=== PATIENT | male | born 1940 | race Caucasian/White ===

== ENCOUNTER 2023-04-28 00:04 | Inpatient (IN) | payer MEDICAID, SELFPAY ==
[2023-04-28] VITALS (59 sets, daily range): BP systolic 56–136; BP diastolic 22–100; PULSE 74–119; RESP 15–38; TEMP 33.9–37.6; O2SAT 70–100; BMI 27.3; BMI 27.5
--- NOTE | ~2023-04-28 | XR_ITS ---
EXAMINATION: XR CHEST CLINICAL INFORMATION: Hypoxia. COMPARISON: Most recent chest radiograph dated 05/03/2023. TECHNIQUE: Frontal view of the chest was obtained. FINDINGS: Hypoinflation of the lungs with small bilateral pleural effusions and bibasilar airspace opacities, increased on the left when compared to the prior examination. No pneumothorax. Stable cardiomediastinal silhouette. XR/XR chest 1V IMPRESSION: Hypoinflation of the lungs with small bilateral pleural effusions and bibasilar airspace opacities, increased on the left when compared to the prior examination.
--- NOTE | ~2023-04-28 | XR_ITS ---
EXAMINATION: XR CHEST CLINICAL INFORMATION: Hypoxia COMPARISON: 04/28/2023 TECHNIQUE: Frontal view of the chest was obtained. FINDINGS: The lungs are hypoinflated which limits evaluation. Bibasilar opacities are present, mildly increased on the left compared to prior. No appreciable pneumothorax or significant pleural effusion. Mildly prominent central vasculature may be accentuated by low lung volumes. Cardiac size grossly appears within normal limits. No acute osseous findings are seen. Contrast material noted within the right colon. XR/XR chest 1V IMPRESSION: Low lung volumes. Bibasilar opacities, mildly increased on the left compared to prior, which may reflect consolidation superimposed on atelectasis in the setting of low lung volumes.
--- NOTE | ~2023-04-28 | XR_ITS ---
EXAMINATION: XR CHEST CLINICAL INFORMATION: Hypoxia COMPARISON: Multiple priors with the last chest x-ray of 05/01/2023 TECHNIQUE: Frontal view of the chest was obtained. FINDINGS: The lungs are significantly hypoexpanded limiting evaluation. Bronchovascular crowding is redemonstrated. No definite new airspace opacities are noted compared to last x-ray. No evidence of from changes of overt pulmonary edema or significant pleural effusions. Small portions of the bilateral lung apices are obscured by overlying feces. Considering this limitation no definite pneumothorax is noted. Multiple cardiac leads and wires overlie the chest. Assessment of the cardiomediastinal silhouette is limited. XR/XR chest 1V IMPRESSION: Limited evaluation by technique and patient positioning. Significantly hypoexpanded lungs with bronchovascular crowding. No definite new airspace opacities are noted compared to last x-ray.
--- NOTE | ~2023-04-28 | XR_ITS ---
EXAMINATION: XR CHEST CLINICAL INFORMATION: Hypoxia. COMPARISON: 05/02/2023 TECHNIQUE: Frontal view of the chest was obtained. FINDINGS: The evaluation of the lungs is extremely limited due to several factors, including marked hypoinflation as well as patient's face overlying the medial lung apices. There is crowding of bronchovascular structures. The persistent streaky, ill-defined opacities in lower lobes are not appreciably changed. No evidence of acute infiltrates in the mid or upper lung zones. This limited exam would not be able to exclude any small pleural effusions. Cardiac silhouette is not well evaluated but is grossly normal in size. The visualized bones are intact. XR/XR chest 1V IMPRESSION: Lungs are hypoinflated and there are persistent opacities from pneumonia and/or atelectasis of lower lobes.
--- NOTE | ~2023-04-28 | XR_ITS ---
EXAMINATION: XR CHEST CLINICAL INFORMATION: Atelectasis COMPARISON: 05/01/2023 at 0500 hours. TECHNIQUE: Frontal view of the chest was obtained. FINDINGS: Low lung volumes limit evaluation. Heart and mediastinum appear within normal limits. No gross vascular congestion. Left base opacity appears less prominent. No change right base opacity. XR/XR chest 1V IMPRESSION: Limited study secondary to low lung volumes. Bibasilar opacities likely atelectasis/consolidations with some improvement of the left base.
--- NOTE | 2023-04-28 00:11 | ED.GENADULT ---
HPI - General Adult General Chief complaint: Altered Mental Status Stated complaint: vomitting Time Seen by Provider: 04/28/23 00:10 Source: EMS Mode of arrival: EMS History of Present Illness HPI narrative: 82-year-old male brought in by EMS from [facility] where the staff states that he was found sitting up in a chair vomiting approximately 30 minutes prior to arrival. As per EMS staff at the facility had stated that patient was not feeling well during the day. EMS found the patient unresponsive, point of care glucose-139, they were unable to get his oxygen saturation throughout the evaluation as well as during transportation but had patient on 100% non-rebreather and at that time the patient arrived to this emergency room he was noted to be tachypneic and unresponsive. Related Data Allergies Allergy/AdvReac Type Severity Reaction Status Date / Time Unable to Assess Allergy Verified 04/28/23 00:10 Review of Systems Review of Systems: Yes Unobtainable due to mental condition PMFSH Past Medical History Source: nursing notes reviewed Social History Social History Advance Directives: No Advance Directives Information Provided: No Physical Exam ED Vital Signs: Vital Signs - 24 hr 04/28/23 00:23 04/28/23 01:35 04/28/23 01:45 Pulse Rate 112 H 102 H Respiratory Rate 38 H Blood Pressure 121/100 H 56/29 L Pulse Oximetry 70 L Oxygen Delivery Method Non-Rebreather Mask Fraction of Inspired Oxygen 50 04/28/23 01:50 04/28/23 01:55 04/28/23 02:01 Pulse Rate 101 H 103 H 98 Respiratory Rate Blood Pressure 75/43 L 73/45 L 75/41 L Pulse Oximetry Oxygen Delivery Method Fraction of Inspired Oxygen 04/28/23 02:05 04/28/23 02:10 Pulse Rate 93 89 Respiratory Rate Blood Pressure 68/42 L 75/42 L Pulse Oximetry Oxygen Delivery Method Fraction of Inspired Oxygen BMI result Body Mass Index 27.3 VITAL SIGNS: Reviewed. GENERAL: Chronically ill, appears older than stated age, unresponsive HEAD: Normocephalic/atraumatic, EYES: Asymmetric pupils EARS: Ext canals without abnormality NOSE: Nares patent bilateral OROPHARYNX: no oral lesions noted, posterior pharynx clear NECK: Supple, no adenopathy LUNGS: Tachypneic with decreased breath sounds on the right. SpO2<82> on Ambu bag CARDIOVASCULAR: Regular rate and rhythm without noted murmurs, no JVD or lower extremity edema. ABDOMEN: Soft, non-tender, non-distended with bowel sounds. MUSCULOSKELETAL: No tenderness, deformities, or effusions noted on gross inspection. EXTREMITIES: No cyanosis, clubbing or edema. SKIN: Inspection of the skin reveals no rashes NEUROLOGIC: GCS-3 Medications Administered Generic Name Dose Route Start Last Admin Trade Name Esther PRN Reason Stop Dose Admin Norepinephrine Bitartrate 8 mg in 250 mls @ 0 mls/hr 04/28/23 01:45 04/28/23 02:30 Levophed IV 0.23 mcg/kg/min .Q0M JEEVAN 39.42 mls/hr Titration Protocol Per Protocol Sodium Chloride 2,742 mls @ 2,742 mls/hr 04/28/23 01:46 04/28/23 02:08 Ns 30 ml/kg infuse over 1 hr (2742 ml) 04/28/23 02:45 2,742 mls/hr IV Administration .Q1H STA Potassium Chloride 10 meq in 100 mls @ 100 mls/hr 04/28/23 02:00 04/28/23 02:31 Potassium Chloride/H20 IV 04/28/23 05:59 100 mls/hr Q1H JEEVAN Administration Discontinued Medications Generic Name Dose Route Start Last Admin Trade Name Esther PRN Reason Stop Dose Admin Etomidate 10 mg 04/28/23 00:35 04/28/23 00:40 Etomidate 20 Mg/10 Ml Vial IVPUSH 04/28/23 00:36 10 mg ONCE ONE Administration Sodium Chloride 500 mls @ 999 mls/hr 04/28/23 01:00 04/28/23 02:09 Ns IV 04/28/23 01:30 Infused .Q31M JEEVAN Infusion Piperacillin Sod/Tazobactam 100 mls @ 200 mls/hr 04/28/23 01:00 04/28/23 02:09 Sod 4.5 gm/ Sodium Chloride IV 04/28/23 01:29 Infused ONCE ONE Infusion Rocuronium [place] 50 mg 04/28/23 00:35 04/28/23 00:42 Rocuronium [place] 50 Mg/5 Ml Vial IVPUSH 07/09/23 00:36 50 mg ONCE ONE Administration Sodium Bicarbonate 50 meq 04/28/23 02:15 04/28/23 02:18 Sodium Bicarbonate 8.4% 50 Meq/50 Ml Syringe IVPUSH 04/28/23 02:16 50 meq ONCE ONE Administration Sodium Bicarbonate 50 meq 04/28/23 02:15 04/28/23 02:19 Sodium Bicarbonate 8.4% 50 Meq/50 Ml Syringe IVPUSH 04/28/23 02:16 50 meq ONCE ONE Administration Procedures Central Line Placement Right Femoral: Time Out Performed: No Patient Placed on Monitor/Pulse Ox: Yes MD Prep: mask, gown and gloves Central Line Prep: Chlorhexidine scrub Ultrasound Used for Placement: Yes Central Line Lumen Inserted: triple Post Procedure: sutured in place, good blood return, all ports aspirated, flushed, capped and sterile dressing applied Patient Tolerated Procedure: well Complications: none Intubation Time out performed: No sedative: Etomidate Mg Given: 10 paralytic: Rocuronium Mg Given: 50 Laryngoscope: fiber optic video scope Assist Device Used: fiber optic device ET Tube Size: 8 ET Tube Uncuffed: Yes Tube Secured Depth (cm): 25 Tube Secured Location: lips Tube Placement Confirmation: visualized tube passing through cords, equal breath sounds bilaterally, no breath sounds over epigastrium and confirmation by capnometry Patient Tolerated Procedure: well Intubation Complications: none Medical Decision Making Medical Decision Making MDM Narrative: 82-year-old male with limited information as patient has not been seen here previously but on quick review paperwork provided by the facility he is noted to be a full resuscitation, has a history of diabetes, he is not responsive, not protecting his airway and despite full flow Ambu bag ventilatory efforts he is still not maintaining adequate oxygenation. I highly suspect aspiration pneumonia, labs/lactic acid/blood cultures are pending. Cannot rule out possible intracranial bleed for which she will receive a CT of the head. 0020: I discussed patient's case with his son, Taz Knott, who confirms the patient is a full resuscitation and also reports that his father had what sounds like a hemorrhagic bleed approximately 20 years ago and has been bed-bound and has a history of diabetes and hypertension but as far as he knows no history of heart attack or pacemaker. He is unsure whether not his father is on blood thinners. 0040: Patient intubated for airway protection, GCS of 3, persistent hypoxia despite maximal noninvasive respiratory support. 0130: I discussed the case with conservator artifacts who accepts admission and on initial evaluation of CT scan of abdomen pelvis it did appear as though patient might have an SBO. Patient has bandemia and was treated with antibiotics, he is noted to be hypotensive and was started on Levophed due to the extensive hypotension and lack of response on initial IV hydration, sepsis fluids were ordered. Patient is noted to have significant metabolic acidosis and be hypotensive and suspect that he may have been sick for much longer than just today. Right femoral central line was placed. 0214: According to radiology there are no acute findings within the abdomen. In addition, chest CT appears to be indicative of aspiration event. Potassium is noted to be low and patient will receive runs of potassium chloride, patient is noted to be in metabolic acidosis which might be a component of acute respiratory failure. I discussed this with the conservator artifacts and we will administer 100 bicarb IV push. Admission/Observation Consideration of admission/observation: Escalation of care including admission/observation considered Consult Healthcare Provider Management of the patient was discussed with: [employer] Lab Data 04/28/23 00:20 04/28/23 00:20 Labs: Lab Results 04/28/23 04/28/23 04/28/23 Range/Units 00:17 00:20 00:20 WBC 7.4 (4.8-10.8) X10*3/uL RBC 4.80 (4.60-5.80) X10*6/uL Hgb 14.4 (14.0-18.0) g/dl Hct 45.8 (42.0-52.0) % MCV 95.4 (80.0-98.0) fL MCH 30.0 (27.0-33.0) pg MCHC 31.4 (31.0-36.0) g/dl RDW 15.3 (11.0-16.0) % Plt Count 436 H (160-400) X10*3/uL MPV 9.5 (9.4-12.4) fL Immature Gran % (Auto) Cancelled Neut % (Auto) Cancelled Lymph % (Auto) Cancelled [place] % (Auto) Cancelled Eos % (Auto) Cancelled Baso % (Auto) Cancelled Lymph # (Auto) Cancelled [place] # (Auto) Cancelled Eos # (Auto) Cancelled Baso # (Auto) Cancelled Abs Immat Gran (auto) Cancelled Absolute Neuts (auto) Cancelled Absolute Nucleated RBC 0.040 H (0.0-0.012) X10*3/uL Nucleated RBC % (auto) 0.5 H (0.0-0.2) /100WBC Neutrophils % (Manual) 39 L (45-73) % Band Neutrophils % 38 H (3-5) % Lymphocytes % (Manual) 19 L (20-40) % Monocytes % (Manual) 1 L (2-11) % Metamyelocytes % 3 % Abs Neuts (Manual) 5.7 (2.0-8.3) X10*3/uL Lymphocytes # (Manual) 1.4 (1.2-4.9) X10*3/uL Monocytes # (Manual) 0.1 (0.1-1.2) X10*3/uL Metamyelocytes # 0.2 X10*3/uL Toxic Vacuolation PRESENT Platelet Estimate NORMAL (NORMAL) Large Platelets PRESENT Plt Morphology Comment NOTED RBC Morphology NOTED Junction Cells 1+ (0-2) /OIF Schistocytes 1+ (0-2) /OIF PT 11.7 (10.0-13.1) SEC INR 1.0 (0.9-1.1) O2 Saturation % ABG pH at Pt Temp (7.35-7.45) ABG pCO2 at Pt Temp (32-45) mmHg ABG pO2 at Pt Temp (83-108) mmHg ABG HCO3 (22-26) mmol/L ABG Base Excess (Actual) mmol/L Sodium (135-145) mmol/L Potassium (3.3-5.1) mmol/L Chloride (96-108) mmol/L Carbon Dioxide (22-29) mmol/L Anion Gap (12-20) BUN (9-16) mg/dL Creatinine (0.5-1.4) mg/dL Estim Creat Clear Calc Estimated GFR POC Glucose 119 H (60-115) mg/dL Random Glucose (60-115) mg/dL Lactic Acid (0.5-2.0) mmol/L Calcium (8.4-10.2) mg/dL Total Bilirubin (0.0-1.0) mg/dL AST (5-37) U/L ALT (0-40) U/L Alkaline Phosphatase (39-117) U/L Troponin I High Sens (<3.5-35.0) ng/L Total Protein (6.5-8.0) g/dL Albumin (3.5-5.0) g/dL 04/28/23 04/28/23 04/28/23 Range/Units 00:20 00:22 01:18 WBC (4.8-10.8) X10*3/uL RBC (4.60-5.80) X10*6/uL Hgb (14.0-18.0) g/dl Hct (42.0-52.0) % MCV (80.0-98.0) fL MCH (27.0-33.0) pg MCHC (31.0-36.0) g/dl RDW (11.0-16.0) % Plt Count (160-400) X10*3/uL MPV (9.4-12.4) fL Immature Gran % (Auto) Neut % (Auto) Lymph % (Auto) [place] % (Auto) Eos % (Auto) Baso % (Auto) Lymph # (Auto) [place] # (Auto) Eos # (Auto) Baso # (Auto) Abs Immat Gran (auto) Absolute Neuts (auto) Absolute Nucleated RBC (0.0-0.012) X10*3/uL Nucleated RBC % (auto) (0.0-0.2) /100WBC Neutrophils % (Manual) (45-73) % Band Neutrophils % (3-5) % Lymphocytes % (Manual) (20-40) % Monocytes % (Manual) (2-11) % Metamyelocytes % % Abs Neuts (Manual) (2.0-8.3) X10*3/uL Lymphocytes # (Manual) (1.2-4.9) X10*3/uL Monocytes # (Manual) (0.1-1.2) X10*3/uL Metamyelocytes # X10*3/uL Toxic Vacuolation Platelet Estimate (NORMAL) Large Platelets Plt Morphology Comment RBC Morphology Rom Cells /OIF Schistocytes /OIF PT (10.0-13.1) SEC INR (0.9-1.1) O2 Saturation 82.0 90.0 % ABG pH at Pt Temp 7.26 L 7.22 L (7.35-7.45) ABG pCO2 at Pt Temp 34 34 (32-45) mmHg ABG pO2 at Pt Temp 64 L 76 L (83-108) mmHg ABG HCO3 16 L 14 L (22-26) mmol/L ABG Base Excess (Actual) -9.9 -12.2 mmol/L Sodium (135-145) mmol/L Potassium (3.3-5.1) mmol/L Chloride (96-108) mmol/L Carbon Dioxide (22-29) mmol/L Anion Gap (12-20) BUN (9-16) mg/dL Creatinine (0.5-1.4) mg/dL Estim Creat Clear Calc Estimated GFR POC Glucose (60-115) mg/dL Random Glucose (60-115) mg/dL Lactic Acid (0.5-2.0) mmol/L Calcium (8.4-10.2) mg/dL Total Bilirubin (0.0-1.0) mg/dL AST (5-37) U/L ALT (0-40) U/L Alkaline Phosphatase (39-117) U/L Troponin I High Sens < 2.7 (<3.5-35.0) ng/L Total Protein (6.5-8.0) g/dL Albumin (3.5-5.0) g/dL 23 /07/13 Range/Units 01:33 01:33 WBC (4.8-10.8) X10*3/uL RBC (4.60-5.80) X10*6/uL Hgb (14.0-18.0) g/dl Hct (42.0-52.0) % MCV (80.0-98.0) fL MCH (27.0-33.0) pg MCHC (31.0-36.0) g/dl RDW (11.0-16.0) % Plt Count (160-400) X10*3/uL MPV (9.4-12.4) fL Immature Gran % (Auto) Neut % (Auto) Lymph % (Auto) [place] % (Auto) Eos % (Auto) Baso % (Auto) Lymph # (Auto) [place] # (Auto) Eos # (Auto) Baso # (Auto) Abs Immat Gran (auto) Absolute Neuts (auto) Absolute Nucleated RBC (0.0-0.012) X10*3/uL Nucleated RBC % (auto) (0.0-0.2) /100WBC Neutrophils % (Manual) (45-73) % Band Neutrophils % (3-5) % Lymphocytes % (Manual) (20-40) % Monocytes % (Manual) (2-11) % Metamyelocytes % % Abs Neuts (Manual) (2.0-8.3) X10*3/uL Lymphocytes # (Manual) (1.2-4.9) X10*3/uL Monocytes # (Manual) (0.1-1.2) X10*3/uL Metamyelocytes # X10*3/uL Toxic Vacuolation Platelet Estimate (NORMAL) Large Platelets Plt Morphology Comment RBC Morphology Junction Cells /OIF Schistocytes /OIF PT (10.0-13.1) SEC INR (0.9-1.1) O2 Saturation % ABG pH at Pt Temp (7.35-7.45) ABG pCO2 at Pt Temp (32-45) mmHg ABG pO2 at Pt Temp (83-108) mmHg ABG HCO3 (22-26) mmol/L ABG Base Excess (Actual) mmol/L Sodium 147 H (135-145) mmol/L Potassium 2.5 L* (3.3-5.1) mmol/L Chloride 125 H (96-108) mmol/L Carbon Dioxide 12 L (22-29) mmol/L Anion Gap 13 (12-20) BUN 21 H (9-16) mg/dL Creatinine 1.17 (0.5-1.4) mg/dL Estim Creat Clear Calc 55.2 Estimated GFR 60 POC Glucose (60-115) mg/dL Random Glucose 90 (60-115) mg/dL Lactic Acid 6.3 H* (0.5-2.0) mmol/L Calcium 6.2 L (8.4-10.2) mg/dL Total Bilirubin 0.6 (0.0-1.0) mg/dL AST 22 (5-37) U/L ALT 27 (0-40) U/L Alkaline Phosphatase 132 H (39-117) U/L Troponin I High Sens (<3.5-35.0) ng/L Total Protein 4.1 L (6.5-8.0) g/dL Albumin 1.8 L (3.5-5.0) g/dL ABG Data Attestation ABG: I personally reviewed and interpreted this ABG as follows: Interpretation: Metabolic acidosis with PO2 of 64, bicarb 16 and SpO2 82% on full flow Ambu bag. Independent Interpretation I performed an independent interpretation of an: EKG Interpretation: Sinus tachycardia, HR-112, no STEMI, RI/QRS/QTC are within normal limits. External Record Review External record reviewed: Outpatient record Chronic Conditions Patient?s care impacted by: Diabetes and Hypertension Critical Care Time Critical Care Time Critical Care Time: Yes Total Critical Care Time: 60 Attestation: I personally attest to this time spent taking care of the patient. Discharge Plan Discharge Clinical Impression: Acute respiratory failure, Metabolic encephalopathy, Hypokalemia Patient Disposition: Admitted As Inpatient
[2023-04-28 00:30] LABS: Hematocrit 45.8 % (42.0-52.0); Hemoglobin 14.4 g/dl (14.0-18.0); Mean Corpuscular HGB Conc 31.4 g/dl (31.0-36.0); Mean Corpuscular Volume 95.4 fL (80.0-98.0); Mean Platelet Volume 9.5 fL (9.4-12.4); NRBC Pct Auto 0.5 /100WBC (0.0-0.2); Platelet Count 436 X10*3/uL (160-400); Red Cell Distribution Width 15.3 % (11.0-16.0); WBC ABN SCTR FOR CBC 1
[2023-04-28 00:31] LABS: White Blood Count 7.4 X10*3/uL (4.8-10.8)
[2023-04-28 00:49] LABS: Neutrophils Percent Manual 39 % (45-73)
[2023-04-28 00:52] LABS: Band Neutrophils Percent 38 % (3-5); Lymphocytes Absolute Manual 1.4 X10*3/uL (1.2-4.9); Lymphocytes Percent Manual 19 % (20-40); Metamyelocytes Absolute 0.2 X10*3/uL; Metamyelocytes Percent 3 %; Monocytes Absolute Manual 0.1 X10*3/uL (0.1-1.2); Monocytes Percent Manual 1 % (2-11); Neutrophils Absolute Manual 5.7 X10*3/uL (2.0-8.3)
[2023-04-28 00:53] LABS: Burr Cells 1+ (0-2) /OIF; Large Platelet PRESENT; Platelet Estimate NORMAL (NORMAL); Platelet Morphology Comment NOTED; RBC Morphology NOTED; Schistocytes 1+ (0-2) /OIF; Toxic Vacuolation PRESENT
[2023-04-28 01:03] LABS: Troponin-I High Sensitivity < 2.7 ng/L (<3.5-35.0)
[2023-04-28] MEDS: Norepinephrine Bitartrate/D5W 8 MG/250 ML PLAST..BAG 8.57 MG IV (01:45)
[2023-04-28 02:00] LABS: Lactic Acid 6.3 mmol/L (0.5-2.0)
[2023-04-28 02:01] LABS: Alanine Aminotransferase 27 U/L (0-40); Albumin Level 1.8 g/dL (3.5-5.0); Alkaline Phosphatase 132 U/L (39-117); Anion Gap 13 (12-20); Aspartate Amino Transferase 22 U/L (5-37); Bilirubin Total 0.6 mg/dL (0.0-1.0); Blood Urea Nitrogen 21 mg/dL (9-16); Calcium 6.2 mg/dL (8.4-10.2); Carbon Dioxide 12 mmol/L (22-29); Chloride 125 mmol/L (96-108); Creatinine Clr Calc Pharmacy 55.2; Estimated Glomerular Filt Rate 60; Glucose Random 90 mg/dL (60-115); Potassium 2.5 mmol/L (3.3-5.1); Sodium 147 mmol/L (135-145); Total Protein 4.1 g/dL (6.5-8.0)
--- NOTE | 2023-04-28 03:05 | PM.CCHP ---
History of Present Illness Date of Service: 04/28/23 Attending physician on admission: Aramis Briceno Chief Complaint: Hypoxic respiratory failure, metabolic acidosis, Bilat PNA ? NPH HPI: ?82-year-old male who presents from [facility] via EMS, had been found sitting up on a chair vomiting for approximately 30 minutes prior to coming to the emergency room.? Is reported patient had not been feeling well throughout the day, the patient was then found unresponsive by EMS with point of care 139, unable to get oxygen saturation, the patient had been transported to the ER on 100% non-rebreather mask, upon arrival in the ER the patient was noted to be unresponsive and tachypneic.? The patient was intubated airway safety and oxygenation. ? His workup was significant for metabolic acidosis and hypoxia with the ABG showing pH of 7.22, pCO2 34, PO2 76, HC03 14, his blood work otherwise revealed no white count but does have a left shift with 38 bands, sodium of 147, potassium 2.5, carbon dioxide 12 and lactic acid of 6.3.? Patient received 30 mL/kilos of IV fluids, was given Zosyn, potassium replacement was started, he received a couple amps of bicarb. ?In addition his head CT questions the possibility of NPH, CT abdomen pelvis CTs show bilateral ground-glass opacities with nodular and patchy changes in the lower lungs, possibly related to bronchiolitis or associated pneumonitis. ? ROS:? Unable to obtain ? Past Medical History:? As above ? Past Surgical History:? Unknown ? Family history:? Noncontributory ? Social History: lives in [facility] > 1 year, otherwise Unknown; called his son Taz Knott [facility], does not ambulate, his number is [phone] he is not sure about goals of care but is aware of current clinical scenario. ? CODE STATUS: FULL CODE ? Allergies: NKDA ? Home Medications: See Med Rec ? Sepsis exam done at 03:00 VS: ?82/40, 97, 16, 89% on vent AC 450/18/8/60% General:? Intubated, sedated. Skin:? Intact, no lesions, edema, erythema, clubbing or cyanosis.? No ulcers.? Hyperpigmented changes of the bilateral lower extremities distal tibias consistent with stasis dermatitis. HEENT:? Head is normocephalic, atraumatic, pupils are fixed at 3 mm bilaterally. Cardiac:? Clear S1-S2, no murmurs rubs or gallops. Pulmonary:? Diminished lung sounds bilaterally with coarseness at the bases.? No rhonchi, wheezes. Abdomen:? Right femoral central line triple-lumen, Protuberant, positive bowel sounds in all 4 quadrants.? Soft Musculoskeletal:? Range of motion at the major joints in a passive manner of the upper and lower extremities reveal no crepitus of cogwheeling.? No leg edema.? No asymmetry. Neurologic:? As above, unable to further assess. Vascular:? 2+ pulses upper and lower extremities distally. ?Less than 2nd capillary refill of the finger and toes bilaterally upper and lower extremities. ? SIGNIFICANT LABORATORY DATA: ?White blood cells 7.4, hemoglobin 14.4, hematocrit 45.8, platelets 436, band neutrophils 38, toxic vacuolation.? Sodium 147, potassium 2.5, chloride 125, carbon dioxide 12, anion gap 13, BUN 21, creatinine 1.17, creatinine 55.2. ?Glucose 119, lactic acid 6.3, calcium 6.2 albumin 1.8. ? ABG pH 7.22, pCO2 34, PO2 76, HC03 14. ? REVIEW OF IMAGES: HEAD CT IMPRESSION: *? No acute intracranial hemorrhage or extra-axial collection. *? Mild white matter small vessel ischemic changes. *? Diffuse prominence of the ventricular system, disproportionate to the degree of prominence of the extra-axial CSF spaces suspicious for normal pressure hydrocephalus complicating generalized brain parenchymal volume loss. ? CHEST CT/ABD/PELVIS WITH IVC IMPRESSION: *? Diffuse bilateral centrilobular groundglass opacities with nodular and more patchy components predominating in the lower lungs. Findings compatible with bronchiolitis and associated pneumonitis. Aspiration may be a factor year. *? No acute findings within the abdomen or pelvis. *? Dependent density in the bladder may represent tiny stones or milk of calcium. *? Chronic anterior wedge compression fracture at T12. CXR IMPRESSION: *? Endotracheal tube terminates 2.3 cm above the aaron. *? Enteric tube terminates in the stomach. ? EKG REVIEW: ? To my view,? Sinus tachycardia 112 beats per minute.? No ST elevations, no ST depressions.? Left anterior fascicular block.? Age-indeterminate changes in the lateral leads.? QTC 458 milliseconds.? No comparison available. ? ASSESSMENT : 1. Acute hypoxic respiratory failure 2. Septic shock 3. Severe metabolic acidosis 4. Bilateral nosocomial versus aspiration pneumonia 5. Acute hypokalemia 6. Hypoalbuminemia 7. Hypocalcemia with corrected calcium level of 7.9 8. Hypovolemic hyponatremia 9. Clinical dehydration 10. Questionable NPH per CT findings 11. Organic versus Metabolic encephalopathy 12. Hypothermia 92 F ? PLAN OF CARE: Admit to ICU, vital signs, I's and O's, ventilatory support, vasopressors, bicarb drip, will add vancomycin to the antibiotic regimen and continue with Zosyn, sputum culture and Gram stain, replace potassium, albumin infusion, replete calcium, repeat laboratories and blood gas in the morning.? Patient ready received 30 mL/kilos 0, Villanueva catheter for fluid management.? Repeat lactic acid in a couple hours and in the morning.Warming blanket for goal temp 98.6 F Will add propofol for slight sedation for his bucket event but he is not responsive at this point without it. ? GI PROPHYLAXIS:? IV ppi DVT PROPHYLAXIS:? Lovenox subQ ? Critical care time used for critical evaluation of this patient, diagnosis, treatment and coordination of care, review her records and documentation TOTAL CRITICAL CARE TIME 90? MIN . discussion and coordination with consultants, completely separate from any procedures performed. Patient's care was discussed in detail with Dr. Briceno.? He is aware of all the above as well as the plan of care for this patient. [facility] Past Medical History Medical History (Updated 04/28/23 @ 05:34 by Billie Padilla RN) Chronic kidney disease (CKD) Diabetes Social History Social History Housing: [facility] Unable to assess alcohol history related to: Unknown Patient Tobacco Use Status: Tobacco use Unknown Use of substances other than those prescribed or required for medical reasons: Unknown Currently Displaying Signs/Symptoms of Drug Intoxication Withdrawal: No Advance Directives: No Advance Directives Information Provided: No Recently lost weight without trying: Unsure service: No Meds Allergies Allergy/AdvReac Type Severity Reaction Status Date / Time Unable to Assess Allergy Verified 04/28/23 00:10 Active Medications: Current Medications Enoxaparin Sodium (Enoxaparin Sodium 40 Mg/0.4 Ml Syringe) 40 mg SUBCUT Q24H JEEVAN Propofol (Diprivan) 1,000 mg in 100 mls @ 0 mls/hr IVCONT .Q0M JEEVAN; Protocol Norepinephrine Bitartrate (Levophed) 8 mg in 250 mls @ 0 mls/hr IV .Q0M JEEVAN; Protocol Last Titration: 04/28/23 02:39 Dose: 0.27 mcg/kg/min, 46.27 mls/hr Sodium Bicarbonate 150 meq/ (Dextrose) 1,000 mls @ 100 mls/hr IV .Q10H JEEVAN Vancomycin HCl (Vancomycin/Ns) 2,000 mg in 500 mls @ 250 mls/hr IV ONCE ONE Stop: 04/28/23 04:29 Albumin Human (Kedbumin 25 %) 100 mls @ 133.333 mls/hr IV Q1H JEEVAN Stop: 04/28/23 06:14 Potassium Chloride (Potassium Chloride/H20) 40 meq in 100 mls @ 100 mls/hr IV ONCE ONE Stop: 04/28/23 03:21 Calcium Gluconate (Calcium Gluconate) 2 gm in 100 mls @ 50 mls/hr IV ONCE ONE Stop: 04/28/23 04:25 Propofol (Diprivan) 1,000 mg in 100 mls @ 0 mls/hr IVCONT .Q0M [facility]; Protocol Pantoprazole Sodium (Pantoprazole Sodium 40 Mg/10 Ml Vial) 40 mg IVPUSH DAILY@0630 [facility] Pharmacy Consult (Consult Rx Vancomycin Dosing) 1 each MISCELLANE DAILY PRN PRN Reason: Consult order Home Medications Medication Instructions Recorded Confirmed Last Taken Type acetaminophen 325 mg tablet 650 mg PO Q6H PRN Fever Or Pain 04/28/23 04/28/23 Unknown History allopurinol 100 mg tablet 200 mg PO DAILY 04/28/23 04/28/23 04/27/23 History atorvastatin 80 mg tablet 80 mg PO BEDTIME 04/28/23 04/28/23 04/27/23 History bisacodyl 10 mg rectal suppository 10 mg VA DAILY PRN Constipation 04/28/23 04/28/23 Unknown History insulin detemir U-100 100 unit/mL 8 unit subcut DAILY@0730 04/28/23 04/28/23 04/27/23 History subcutaneous solution (Levemir U-100 Insulin) insulin detemir U-100 100 unit/mL 16 unit subcut DAILY@1700 04/28/23 04/28/23 04/27/23 History subcutaneous solution (Levemir U-100 Insulin) levetiracetam 250 mg tablet 1,250 mg PO BID 04/28/23 04/28/23 04/27/23 History lisinopril 10 mg tablet 10 mg PO DAILY 04/28/23 04/28/23 04/27/23 History magnesium hydroxide 400 mg/5 mL 5 ml PO DAILY PRN Constipation 04/28/23 04/28/23 Unknown History oral suspension (Milk of Magnesia) ondansetron 4 mg disintegrating 4 mg PO Q6H PRN Nausea And Vomiting 04/28/23 04/28/23 Unknown History tablet sennosides 8.6 mg-docusate sodium 2 tab-cap PO BID PRN Constipation 04/28/23 04/28/23 Unknown History 50 mg tablet (Senna Plus) sodium phosphates 19 gram-7 118 ml VA DAILY PRN Constipation 04/28/23 04/28/23 Unknown History gram/118 mL enema (Fleet Enema) Physical Exam Vital Signs: Vital Signs: Last Vital Signs Temp 95.1 F L 04/28/23 02:28 Pulse 84 04/28/23 02:39 Resp 38 H 04/28/23 00:23 BP 82/40 L 04/28/23 02:39 Pulse Ox 70 L 04/28/23 00:23 O2 Del Method Non-Rebreather Ma sk 04/28/23 00:23 FiO2 50 04/28/23 01:35 BMI result Body Mass Index 27.3 Results Labs 04/28/23 00:20 04/28/23 01:33 Labs: Laboratory Results - last 24 hr 04/28/23 04/28/23 04/28/23 00:17 00:20 00:20 MCV 95.4 MCH 30.0 MCHC 31.4 RDW 15.3 Plt Count 436 H MPV 9.5 Immature Gran % (Auto) Cancelled Neut % (Auto) Cancelled Lymph % (Auto) Cancelled [place] % (Auto) Cancelled Eos % (Auto) Cancelled Baso % (Auto) Cancelled Lymph # (Auto) Cancelled [place] # (Auto) Cancelled Eos # (Auto) Cancelled Baso # (Auto) Cancelled Abs Immat Gran (auto) Cancelled Absolute Neuts (auto) Cancelled Absolute Nucleated RBC 0.040 H Nucleated RBC % (auto) 0.5 H Neutrophils % (Manual) 39 L Band Neutrophils % 38 H Lymphocytes % (Manual) 19 L Monocytes % (Manual) 1 L Metamyelocytes % 3 Abs Neuts (Manual) 5.7 Lymphocytes # (Manual) 1.4 Monocytes # (Manual) 0.1 Metamyelocytes # 0.2 Toxic Vacuolation PRESENT Platelet Estimate NORMAL Large Platelets PRESENT Plt Morphology Comment NOTED RBC Morphology NOTED [place] Cells 1+ (0-2) Schistocytes 1+ (0-2) PT 11.7 INR 1.0 O2 Saturation ABG pH at Pt Temp ABG pCO2 at Pt Temp ABG pO2 at Pt Temp ABG HCO3 ABG Base Excess (Actual) Anion Gap Estim Creat Clear Calc Estimated GFR POC Glucose 119 H Random Glucose Lactic Acid Calcium Total Bilirubin AST ALT Alkaline Phosphatase Troponin I High Sens Total Protein Albumin 04/28/23 04/28/23 04/28/23 00:20 00:22 01:18 MCV MCH MCHC RDW Plt Count MPV Immature Gran % (Auto) Neut % (Auto) Lymph % (Auto) [place] % (Auto) Eos % (Auto) Baso % (Auto) Lymph # (Auto) [place] # (Auto) Eos # (Auto) Baso # (Auto) Abs Immat Gran (auto) Absolute Neuts (auto) Absolute Nucleated RBC Nucleated RBC % (auto) Neutrophils % (Manual) Band Neutrophils % Lymphocytes % (Manual) Monocytes % (Manual) Metamyelocytes % Abs Neuts (Manual) Lymphocytes # (Manual) Monocytes # (Manual) Metamyelocytes # Toxic Vacuolation Platelet Estimate Large Platelets Plt Morphology Comment RBC Morphology [place] Cells Schistocytes PT INR O2 Saturation 82.0 90.0 ABG pH at Pt Temp 7.26 L 7.22 L ABG pCO2 at Pt Temp 34 34 ABG pO2 at Pt Temp 64 L 76 L ABG HCO3 16 L 14 L ABG Base Excess (Actual) -9.9 -12.2 Anion Gap Estim Creat Clear Calc Estimated GFR POC Glucose Random Glucose Lactic Acid Calcium Total Bilirubin AST ALT Alkaline Phosphatase Troponin I High Sens < 2.7 Total Protein Albumin 04/28/23 04/28/23 01:33 01:33 MCV MCH MCHC RDW Plt Count MPV Immature Gran % (Auto) Neut % (Auto) Lymph % (Auto) [place] % (Auto) Eos % (Auto) Baso % (Auto) Lymph # (Auto) [place] # (Auto) Eos # (Auto) Baso # (Auto) Abs Immat Gran (auto) Absolute Neuts (auto) Absolute Nucleated RBC Nucleated RBC % (auto) Neutrophils % (Manual) Band Neutrophils % Lymphocytes % (Manual) Monocytes % (Manual) Metamyelocytes % Abs Neuts (Manual) Lymphocytes # (Manual) Monocytes # (Manual) Metamyelocytes # Toxic Vacuolation Platelet Estimate Large Platelets Plt Morphology Comment RBC Morphology Rom Cells Schistocytes PT INR O2 Saturation ABG pH at Pt Temp ABG pCO2 at Pt Temp ABG pO2 at Pt Temp ABG HCO3 ABG Base Excess (Actual) Anion Gap 13 Estim Creat Clear Calc 55.2 Estimated GFR 60 POC Glucose Random Glucose 90 Lactic Acid 6.3 H* Calcium 6.2 L Total Bilirubin 0.6 AST 22 ALT 27 Alkaline Phosphatase 132 H Troponin I High Sens Total Protein 4.1 L Albumin 1.8 L Imaging Radiologist's Impressions: Impressions Abdomen/Pelvis CT 04/28/23 01:05 IMPRESSION: * Diffuse bilateral centrilobular groundglass opacities with nodular and more patchy components predominating in the lower lungs. Findings compatible with bronchiolitis and associated pneumonitis. Aspiration may be a factor year. * No acute findings within the abdomen or pelvis. * Dependent density in the bladder may represent tiny stones or milk of calcium. * Chronic anterior wedge compression fracture at T12. Chest CT 04/28/23 01:05 IMPRESSION: * Diffuse bilateral centrilobular groundglass opacities with nodular and more patchy components predominating in the lower lungs. Findings compatible with bronchiolitis and associated pneumonitis. Aspiration may be a factor year. * No acute findings within the abdomen or pelvis. * Dependent density in the bladder may represent tiny stones or milk of calcium. * Chronic anterior wedge compression fracture at T12. Head CT 04/28/23 01:05 IMPRESSION: * No acute intracranial hemorrhage or extra-axial collection. * Mild white matter small vessel ischemic changes. * Diffuse prominence of the ventricular system, disproportionate to the degree of prominence of the extra-axial CSF spaces suspicious for normal pressure hydrocephalus complicating generalized brain parenchymal volume loss. Chest X-Ray 04/28/23 02:20 IMPRESSION: * Endotracheal tube terminates 2.3 cm above the aaron. * Enteric tube terminates in the stomach. Assessment and Plan Time Spent With Patient Time: Total time managing care of this patient today ____ minutes.
[2023-04-28] MEDS: Enoxaparin Sodium 40 MG/0.4 ML SYRINGE SUBCUT (03:14)
--- NOTE | 2023-04-28 03:22 | PC.NURSE ---
0023: Pt BIBA ,Pt was found sitting up in chair vomiting 1/2 hour prior to arrival. Per EMS staff reported Pt was not feeling well during the day. Pt was unresponsive for EMS, EMS unable to get sao2 reading and placed Pt on non-rebreather with 26 F nasal trumpet. 0030: Pt not responsive to tactile stimuli, on non-rebreather, O2 sat 68%, RR 32, HR 112. Bilateral IV lines placed to ACs. Dr. Martinez at bedside. Respiratory therapist began to bag, plan to intubate. 0035: Pt intubated, tube size 8 at 25 at the lip. O2 sat 98%. 0145: BP 56/29, provider aware, new order for pressor and started. Meds give as documented, NG tube placed. Unequal pupils noted. Skin is cool to touch, skin is intact, no redness or open areas noted to coccyx. Rectal temp of 95.1, warm blankets given. 0235: RN to RN report given to Billie Pt transported by T/W and respiratory therapist to room 252.
[2023-04-28 03:37] LABS: Reflex Lactate? Lactic Acid Added
[2023-04-28 04:18] LABS: ~Lactic Acid-LAB USE ONLY 7.9 mmol/L (0.5-2.0)
[2023-04-28 04:27] LABS: Appearance Urine Turbid; Color Urine Yellow; Glucose Urine UA Negative (Negative); Leukocyte Esterase Urine Large (3+) (Negative); Nitrite Urine Negative (Negative); PH 6.5 (5.0-9.0); Specific Gravity - Urine 1.015 (1.005-1.025); UMIC TRIGGER UACC YES; Urine Blood Moderate (2+) (Negative); Urine Ketones Negative (Negative); Urine Protein 100 (2+) mg/dL (Neg-Trace)
[2023-04-28 04:34] LABS: Bacteria Urine 4+ (None Seen); Hyaline Casts Urine >20 /LPF (0-2); UACC Culture Trigger YES; WBC Clumps Urine Present; WBC Urine >50 /HPF (0-5)
[2023-04-28] MEDS: Norepinephrine Bitartrate/D5W 8 MG/250 ML PLAST..BAG 85.69 MG IV ×6 (04:41→23:53)
[2023-04-28 05:09] LABS: Venous Blood Gas Refer to POC result
[2023-04-28 05:25] LABS: Hematocrit 35.6 % (42.0-52.0); Hemoglobin 11.1 g/dl (14.0-18.0); Mean Corpuscular HGB Conc 31.2 g/dl (31.0-36.0); Mean Corpuscular Hemoglobin 29.5 pg (27.0-33.0); Mean Corpuscular Volume 94.7 fL (80.0-98.0); Mean Platelet Volume 9.7 fL (9.4-12.4); NRBC Pct Auto 0.3 /100WBC (0.0-0.2); Platelet Count 334 X10*3/uL (160-400); Red Blood Count 3.76 X10*6/uL (4.60-5.80); WBC ABN SCTR FOR CBC 1
[2023-04-28 05:26] LABS: White Blood Count 6.8 X10*3/uL (4.8-10.8)
[2023-04-28 05:46] LABS: Band Neutrophils Percent 43 % (3-5); Lymphocytes Percent Manual 14 % (20-40); Metamyelocytes Absolute 0.3 X10*3/uL; Metamyelocytes Percent 5 %; Monocytes Absolute Manual 0.5 X10*3/uL (0.1-1.2); Monocytes Percent Manual 7 % (2-11); Neutrophils Percent Manual 31 % (45-73); RBC Morphology NOTED
[2023-04-28 05:47] LABS: Burr Cells 1+ (0-2) /OIF; Platelet Estimate NORMAL (NORMAL); Platelet Morphology Comment NORMAL; Schistocytes 1+ (0-2) /OIF; Toxic Vacuolation PRESENT
[2023-04-28 06:01] LABS: Reflex Lactate? 2 Y
--- NOTE | 2023-04-28 07:21 | PHA.PROG ---
Admission Date/Time: April 28, 2023 02:15 Indication: BACTEREMIA Weight in k.1 kg Adjusted body weight in Kg: [place] body weight in Kg: Obesity Dosing Indication % IBW: Serum Creatinine - Last 168 Hours 04/28/23 04/28/23 01:33 04:58 Creatinine 1.17 1.99 H Estimated CrCl and GFR - Last 168 Hours 04/28/23 04/28/23 01:33 04:58 Estim Creat Clear Calc 55.2 32.4 Estimated GFR 60 32 Vancomycin Loading Dose: 2000 MG Current Vancomycin Dosing Regimen: 1000MG Q 24 HOURS Vancomycin Monitoring using AUC goal of 400 - 600 range with trough as surrogate marker: PREDICTED AUC 532 Date and Time for next Vancomycin Level to be drawn:WILL CHECK RANDOM LEVEL AFTER 2 DOSES 04/30/23 0200 Pharmacist Comments on Vancomycin Plan: MONITOR RENAL FUNCTION CAREFULLY, MAY NEED TO DOSE BY LEVEL Vancomycin dosing will take advantage of [employer] as a clinical decision support tool that uses Bayesian modeling to calculate individual patient's pharmacokinetic parameters and forecast the patient's drug concentration time course with the target goal AUC 24 range of 400 - 600 mg/L/hr.
--- NOTE | 2023-04-28 10:04 | MHC.CM.PN ---
Pt intubated and unable to participate in CM assessment: Call placed to [facility] x3 where pt is a LT resident: Phone disconnected each time CM transferred to pt's nursing unit. Call placed to pt's son, Taz who stated pt has lived at [facility] over a year. He states pt is alert, verbal, oriented and conversant but physically unable to propel self in w/c, ambulate and requires assistance for ADL completion. 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 Taz unsure if pt has a HCP, advance directives or a guardian. Cheryl, the [facility] [employer]iler was working on all of that as of last week when I spoke with her. Pt is listed as a Full Code. Pt re-referred to [facility] and CM will continue calling center for additional information. BLS transport is expected when pt is medically ready to return. CM to follow.
--- NOTE | 2023-04-28 10:43 | PHA.MEDREC ---
Pharmacy Consult ? Medication Reconciliation Pharmacy has completed the medication reconciliation.USED LIST FROM [facility] TO COMPLETE MED REC
[2023-04-28] MEDS: Insulin Lispro 100 UNIT/ML 3 ML VIAL SUBCUT ×2 (11:48→17:54)
[2023-04-28] MEDS: Insulin Glargine,Hum.rec.anlog 100 UNIT/ML 10 ML VIAL 10 UNIT SUBCUT (14:46)
[2023-04-28] MEDS: Norepinephrine Bitartrate/D5W 8 MG/250 ML PLAST..BAG 89.12 MG IV ×2 (16:02→21:13)
[2023-04-29] VITALS (43 sets, daily range): BP systolic 105–140; BP diastolic 50–75; PULSE 67–106; RESP 12–20; TEMP 35.1–37.7; O2SAT 95–99; BMI 29.0
[2023-04-29] MEDS: Insulin Lispro 100 UNIT/ML 3 ML VIAL SUBCUT ×4 (00:20→17:43)
[2023-04-29] MEDS: Enoxaparin Sodium 40 MG/0.4 ML SYRINGE SUBCUT (02:50)
[2023-04-29] MEDS: Norepinephrine Bitartrate/D5W 8 MG/250 ML PLAST..BAG 78.83 MG IV (02:51)
[2023-04-29] MEDS: vancomycin HCL 1,000 MG in 0.9 % Sodium Chloride 250 ML 270 MG IV (04:00)
[2023-04-29] MEDS: Norepinephrine Bitartrate/D5W 8 MG/250 ML PLAST..BAG 75.41 MG IV (06:01)
[2023-04-29] MEDS: Pantoprazole Sodium 40 MG/10 ML VIAL IVPUSH (06:03)
[2023-04-29] MEDS: Insulin Glargine,Hum.rec.anlog 100 UNIT/ML 10 ML VIAL 10 UNIT SUBCUT (08:02)
[2023-04-29] MEDS: Norepinephrine Bitartrate/D5W 8 MG/250 ML PLAST..BAG 68.55 MG IV (09:30)
--- NOTE | 2023-04-29 12:55 | PM.CCPN ---
Subjective Subjective Date of Service: 04/29/23 Interval History: 82-year-old male insulin-dependent type 2 diabetic apparent seizure disorder thus he has been chronically on on Keppra which has not yet been restored noted to be somewhat different throughout the day with persistent nausea then vomiting and came in hypotensive hypoxic marked respiratory distress unresponsive needed to be urgently intubated and apparently there is suctioning of very purulent sputum and looking at the CT scan that clearly is evidence of probable adeno a bibasilar been infiltrates consistent with aspiration question is the regional reason for the nausea vomiting and all we have otherwise is evidence of probable urinary tract source but he is cultured and being covered empirically with vancomycin and Zosyn currently but he was he was altered and now even off the propofol he will respond to loud noise and the deep pain but persistently lethargic so there is no evidence of any than significant return of cognitive function so we continue to observe but he is on a pressure support mechanism of 07/25 with adequate volumes of 400 cc only has an 8 L minute ventilatory requirement and an FiO2 of 25% so will continue to observe in this fashion Critical Care Time (minutes): 60 Physical Exam Vital Signs: Vital Signs: Last Vital Signs Temp 99.7 F 04/29/23 12:00 Pulse 79 04/29/23 12:00 Resp 15 04/29/23 12:00 BP 122/63 04/29/23 12:00 Pulse Ox 97 04/29/23 12:00 O2 Del Method Mechanical Ventil ation 04/29/23 12:00 FiO2 25 04/29/23 12:00 BMI result Body Mass Index 29.0 and responds to to rubbing in loud voice adequate bilateral carotid upstrokes but no resting gallops no heave abdomen is soft with no organomegaly nontender lungs with without expiratory wheeze no accessory muscle use but scattered bilateral rales skin without cellulitis no acrocyanosis Objective Data Labs 04/29/23 05:04 04/29/23 05:04 Labs: Laboratory Results - last 24 hr 04/28/23 04/28/23 04/28/23 11:40 13:14 13:15 WBC RBC Hgb Hct MCV MCH MCHC RDW Plt Count MPV Immature Gran % (Auto) Neut % (Auto) Lymph % (Auto) [place] % (Auto) Eos % (Auto) Baso % (Auto) Lymph # (Auto) [place] # (Auto) Eos # (Auto) Baso # (Auto) Abs Immat Gran (auto) Absolute Neuts (auto) Absolute Nucleated RBC Nucleated RBC % (auto) Neutrophils % (Manual) Band Neutrophils % Lymphocytes % (Manual) Monocytes % (Manual) Metamyelocytes % Abs Neuts (Manual) Lymphocytes # (Manual) Monocytes # (Manual) Metamyelocytes # Platelet Estimate Plt Morphology Comment RBC Morphology Tear Drop Cells Ovalocytes [place] Cells Acanthocytes (Spur) Schistocytes VBG pH 7.36 VBG pCO2 35 VBG pO2 113 VBG HCO3 20 L VBG O2 Saturation 97.0 VBG Base Excess -4.7 Sodium 140 Potassium 3.3 Chloride 103 Carbon Dioxide 20 L Anion Gap 20 BUN 28 H Creatinine 2.14 H Estim Creat Clear Calc 30.2 Estimated GFR 30 POC Glucose 330 H Random Glucose 339 H Lactic Acid Lactic Acid F/U @ 2Hr Lactic Acid F/U @ 4Hr Calcium 8.9 D Phosphorus Magnesium Total Bilirubin AST ALT Alkaline Phosphatase C-Reactive Protein Total Protein Albumin Random Vancomycin 04/28/23 04/28/23 04/28/23 13:15 15:33 17:43 WBC RBC Hgb Hct MCV MCH MCHC RDW Plt Count MPV Immature Gran % (Auto) Neut % (Auto) Lymph % (Auto) [place] % (Auto) Eos % (Auto) Baso % (Auto) Lymph # (Auto) [place] # (Auto) Eos # (Auto) Baso # (Auto) Abs Immat Gran (auto) Absolute Neuts (auto) Absolute Nucleated RBC Nucleated RBC % (auto) Neutrophils % (Manual) Band Neutrophils % Lymphocytes % (Manual) Monocytes % (Manual) Metamyelocytes % Abs Neuts (Manual) Lymphocytes # (Manual) Monocytes # (Manual) Metamyelocytes # Platelet Estimate Plt Morphology Comment RBC Morphology Tear Drop Cells Ovalocytes [place] Cells Acanthocytes (Spur) Schistocytes VBG pH VBG pCO2 VBG pO2 VBG HCO3 VBG O2 Saturation VBG Base Excess Sodium Potassium Chloride Carbon Dioxide Anion Gap BUN Creatinine Estim Creat Clear Calc Estimated GFR POC Glucose 252 H Random Glucose Lactic Acid 8.5 H* Lactic Acid F/U @ 2Hr 6.0 H* Lactic Acid F/U @ 4Hr Calcium Phosphorus Magnesium Total Bilirubin AST ALT Alkaline Phosphatase C-Reactive Protein Total Protein Albumin Random Vancomycin 04/28/23 04/29/23 04/29/23 17:46 00:07 01:56 WBC RBC Hgb Hct MCV MCH MCHC RDW Plt Count MPV Immature Gran % (Auto) Neut % (Auto) Lymph % (Auto) [place] % (Auto) Eos % (Auto) Baso % (Auto) Lymph # (Auto) [place] # (Auto) Eos # (Auto) Baso # (Auto) Abs Immat Gran (auto) Absolute Neuts (auto) Absolute Nucleated RBC Nucleated RBC % (auto) Neutrophils % (Manual) Band Neutrophils % Lymphocytes % (Manual) Monocytes % (Manual) Metamyelocytes % Abs Neuts (Manual) Lymphocytes # (Manual) Monocytes # (Manual) Metamyelocytes # Platelet Estimate Plt Morphology Comment RBC Morphology Tear Drop Cells Ovalocytes [place] Cells Acanthocytes (Spur) Schistocytes VBG pH VBG pCO2 VBG pO2 VBG HCO3 VBG O2 Saturation VBG Base Excess Sodium Potassium Chloride Carbon Dioxide Anion Gap BUN Creatinine Estim Creat Clear Calc Estimated GFR POC Glucose 218 H Random Glucose Lactic Acid Lactic Acid F/U @ 2Hr Lactic Acid F/U @ 4Hr 4.7 H* Calcium Phosphorus Magnesium Total Bilirubin AST ALT Alkaline Phosphatase C-Reactive Protein Total Protein Albumin Random Vancomycin 12.5 L 04/29/23 04/29/23 04/29/23 05:03 05:04 05:04 WBC RBC Hgb Hct MCV MCH MCHC RDW Plt Count MPV Immature Gran % (Auto) Neut % (Auto) Lymph % (Auto) [place] % (Auto) Eos % (Auto) Baso % (Auto) Lymph # (Auto) [place] # (Auto) Eos # (Auto) Baso # (Auto) Abs Immat Gran (auto) Absolute Neuts (auto) Absolute Nucleated RBC Nucleated RBC % (auto) Neutrophils % (Manual) Band Neutrophils % Lymphocytes % (Manual) Monocytes % (Manual) Metamyelocytes % Abs Neuts (Manual) Lymphocytes # (Manual) Monocytes # (Manual) Metamyelocytes # Platelet Estimate Plt Morphology Comment RBC Morphology Tear Drop Cells Ovalocytes Rom Cells Acanthocytes (Spur) Schistocytes VBG pH 7.49 H VBG pCO2 43 VBG pO2 42 VBG HCO3 33 H VBG O2 Saturation 70.0 VBG Base Excess 9.0 Sodium 143 143 Potassium 3.2 L 3.3 Chloride 100 100 Carbon Dioxide 30 H 30 H Anion Gap 16 16 BUN 24 H 25 H Creatinine 2.05 H 2.05 H Estim Creat Clear Calc 31.5 31.5 Estimated GFR 31 31 POC Glucose Random Glucose 223 H 224 H Lactic Acid Lactic Acid F/U @ 2Hr Lactic Acid F/U @ 4Hr Calcium 9.0 8.9 Phosphorus 1.4 L Magnesium 1.3 L* Total Bilirubin 2.0 H 2.0 H AST 26 31 ALT 27 28 Alkaline Phosphatase 137 H 153 H C-Reactive Protein 24.38 H Total Protein 6.2 L 6.3 L Albumin 3.4 L 3.5 Random Vancomycin 04/29/23 04/29/23 04/29/23 05:04 11:10 11:14 WBC 17.6 H RBC 3.47 L Hgb 10.2 L Hct 31.2 L MCV 89.9 MCH 29.4 MCHC 32.7 RDW 14.8 Plt Count 254 MPV 9.2 L Immature Gran % (Auto) Cancelled Neut % (Auto) Cancelled Lymph % (Auto) Cancelled [place] % (Auto) Cancelled Eos % (Auto) Cancelled Baso % (Auto) Cancelled Lymph # (Auto) Cancelled [place] # (Auto) Cancelled Eos # (Auto) Cancelled Baso # (Auto) Cancelled Abs Immat Gran (auto) Cancelled Absolute Neuts (auto) Cancelled Absolute Nucleated RBC 0.000 Nucleated RBC % (auto) 0.0 Neutrophils % (Manual) 37 L Band Neutrophils % 36 H Lymphocytes % (Manual) 23 Monocytes % (Manual) 2 Metamyelocytes % 2 Abs Neuts (Manual) 12.8 H Lymphocytes # (Manual) 4.0 Monocytes # (Manual) 0.4 Metamyelocytes # 0.4 Platelet Estimate NORMAL Plt Morphology Comment NORMAL RBC Morphology NOTED Tear Drop Cells 1+ (0-2) Ovalocytes 1+ (5-14) [place] Cells 2+ (3-5) Acanthocytes (Spur) 1+ (0-2) Schistocytes 1+ (0-2) VBG pH VBG pCO2 VBG pO2 VBG HCO3 VBG O2 Saturation VBG Base Excess Sodium Potassium Chloride Carbon Dioxide Anion Gap BUN Creatinine Estim Creat Clear Calc Estimated GFR POC Glucose 218 H 222 H Random Glucose Lactic Acid Lactic Acid F/U @ 2Hr Lactic Acid F/U @ 4Hr Calcium Phosphorus Magnesium Total Bilirubin AST ALT Alkaline Phosphatase C-Reactive Protein Total Protein Albumin Random Vancomycin Microbiology Microbiology Results: Microbiology 04/28/23 Unknown Urine Catheterized - Villanueva Catheter Urine Culture - Preliminary Culture in progress. 04/28/23 04:20 Sputum - Suctioned Gram Stain - Final 04/28/23 04:20 Sputum - Suctioned Sputum Culture - Preliminary 04/28/23 01:33 Blood - Venous Blood Culture - Preliminary No growth after 24 hours. 04/28/23 00:23 Blood - Venous Blood Culture - Preliminary No growth after 24 hours. Progress Note: A&P Assessment and plan (1) Aspiration pneumonitis due to regurgitated gastric secretions: Status: Acute (2) Acute renal failure (ARF): Status: Acute (3) Type 2 diabetes mellitus: Status: Acute (4) Seizure disorder: Status: Acute (5) Hypomagnesemia: Status: Acute (6) Hypokalemia due to excessive gastrointestinal loss of potassium: Status: Acute (7) Hypophosphatemia: Status: Acute (8) Metabolic encephalopathy: Status: Acute (9) Acute respiratory failure: Status: Acute Assessment and Plan: so the plan here is to continue the broad antibiotics and and start him on IV maintenance fluid with Levophed support and discontinue the bicarb drip and keep him on the pressure support as we watch for his cognitive function to improve Plan at this point we have urinary tract infection which could have initiated the nausea vomiting etc. but clearly and unequivocally aspiration pneumonitis as a secondary component and at this point he is off sedation and we will observe and he is on a pressure support ventilator weaning trial but his blood pressure still requires IV norepinephrine and would start him on IV maintenance fluid because he developed acute renal failure which I believe will be on the basis of ATN along with certain electrolytic issue such as significant hypokalemia and hypo magnesemia and hypophosphatemia Quality Stroke Does the patient have a stroke diagnosis?: No VTE Prior VTE?: No VTE Risk Level:: Medical - moderate - high VTE Device Contraindication: N/A - Device Ordered VTE Drug Contraindication: N/A - Med Ordered
[2023-04-29] MEDS: Norepinephrine Bitartrate/D5W 8 MG/250 ML PLAST..BAG 65.12 MG IV (13:02)
[2023-04-29] MEDS: KCl 20 mEq in 0.45% Sod 20 MEQ/1,000 ML IV.SOLN 80 MEQ IVCONT (13:10)
[2023-04-29] MEDS: levETIRAcetam 750 MG in 0.9 % Sodium Chloride 100 ML 430 MG IV (14:12)
[2023-04-29] MEDS: Norepinephrine Bitartrate/D5W 8 MG/250 ML PLAST..BAG 58.27 MG IV (17:00)
[2023-04-29 17:36] LABS: Glucose, Whole Blood 152 mg/dL (60-115)
[2023-04-29] MEDS: dexmedeTOMIDidine HCL/NS 400 MCG/100 ML INFUS..BTL 24.28 MCG IVCONT (20:26)
[2023-04-29] MEDS: Norepinephrine Bitartrate/D5W 8 MG/250 ML PLAST..BAG 54.84 MG IV (20:41)
[2023-04-29 23:51] LABS: Glucose, Whole Blood 165 mg/dL (60-115)
[2023-04-30] VITALS (46 sets, daily range): BP systolic 77–155; BP diastolic 40–66; PULSE 62–84; RESP 12–35; TEMP 34.8–37.8; O2SAT 97–100; BMI 29.5
[2023-04-30] MEDS: KCl 20 mEq in 0.45% Sod 20 MEQ/1,000 ML IV.SOLN 80 MEQ IVCONT ×2 (00:15→09:57)
[2023-04-30] MEDS: Norepinephrine Bitartrate/D5W 8 MG/250 ML PLAST..BAG 41.13 MG IV (01:33)
[2023-04-30] MEDS: levETIRAcetam 750 MG in 0.9 % Sodium Chloride 100 ML 430 MG IV ×2 (01:35→13:34)
[2023-04-30] MEDS: Enoxaparin Sodium 40 MG/0.4 ML SYRINGE SUBCUT (01:39)
[2023-04-30 02:22] LABS: Vancomycin Random 13.8 mcg/mL (15-20)
[2023-04-30] MEDS: dexmedeTOMIDidine HCL/NS 400 MCG/100 ML INFUS..BTL IVCONT (03:13)
[2023-04-30] MEDS: vancomycin HCL 1,000 MG in 0.9 % Sodium Chloride 250 ML 270 MG IV (03:15)
[2023-04-30 04:42] LABS: VBG Base Excess 8.2 mmol/L; VBG HCO3 31 mmol/L (22-26); VBG pCO2 40 mmHg; VBG pO2 36 mmHg
[2023-04-30 04:47] LABS: Hematocrit 31.6 % (42.0-52.0); Hemoglobin 10.4 g/dl (14.0-18.0); Mean Corpuscular HGB Conc 32.9 g/dl (31.0-36.0); Mean Corpuscular Hemoglobin 29.9 pg (27.0-33.0); Mean Corpuscular Volume 90.8 fL (80.0-98.0); Mean Platelet Volume 9.3 fL (9.4-12.4); Platelet Count 205 X10*3/uL (160-400); Red Blood Count 3.48 X10*6/uL (4.60-5.80)
[2023-04-30 05:04] LABS: Alanine Aminotransferase 30 U/L (0-40); Albumin Level 3.2 g/dL (3.5-5.0); Alkaline Phosphatase 146 U/L (39-117); Anion Gap 17 (12-20); Aspartate Amino Transferase 32 U/L (5-37); Bilirubin Total 2.9 mg/dL (0.0-1.0); Blood Urea Nitrogen 18 mg/dL (9-16); Calcium 9.3 mg/dL (8.4-10.2); Carbon Dioxide 25 mmol/L (22-29); Chloride 101 mmol/L (96-108); Creatinine Clr Calc Pharmacy 39.5; Estimated Glomerular Filt Rate 36; Glucose Random 138 mg/dL (60-115); Phosphorus 1.3 mg/dL (2.7-4.5); Potassium 3.2 mmol/L (3.3-5.1); Sodium 140 mmol/L (135-145); Total Protein 6.2 g/dL (6.5-8.0)
[2023-04-30 05:09] LABS: Band Neutrophils Percent 23 % (3-5); Eosinophils Absolute Manual 0.2 X10*3/uL (0.0-0.4); Eosinophils Percent Manual 1 % (0-4); Lymphocytes Absolute Manual 2.6 X10*3/uL (1.2-4.9); Lymphocytes Percent Manual 17 % (20-40); Metamyelocytes Absolute 0.3 X10*3/uL; Metamyelocytes Percent 2 %; Monocytes Absolute Manual 0.3 X10*3/uL (0.1-1.2); Monocytes Percent Manual 2 % (2-11); Neutrophils Absolute Manual 11.7 X10*3/uL (2.0-8.3); Neutrophils Percent Manual 55 % (45-73)
[2023-04-30 05:11] LABS: Acanthocytes 1+ (0-2) /OIF; Burr Cells 2+ (3-5) /OIF; Ovalocytes 1+ (5-14) /OIF; RBC Morphology NOTED; Schistocytes 1+ (0-2) /OIF; Target Cells 1+ (5-14) /OIF
[2023-04-30 05:12] LABS: Dohle Bodies PRESENT; Platelet Estimate NORMAL (NORMAL); Platelet Morphology Comment NORMAL
[2023-04-30 05:52] LABS: Glucose, Whole Blood 130 mg/dL (60-115)
[2023-04-30] MEDS: Pantoprazole Sodium 40 MG/10 ML VIAL IVPUSH (06:00)
[2023-04-30] MEDS: Potassium Phosphate/NS 15 MMOL/250 ML PLAST..BAG 62.5 MMOL IV (06:01)
--- NOTE | 2023-04-30 06:04 | HE.PHANOTE ---
RE: VANCO Patients level came back this morning at 13.8. Rx insight shows patient is within AUC goal at an AUC of 414. Will continue with 1000 mg Q24H. predicted AUC 493 mg/l/hr. Next draw tomorrow 05/01/23 at 0200
[2023-04-30 06:32] LABS: Venous Blood Gas Refer to POC result
[2023-04-30] MEDS: Norepinephrine Bitartrate/D5W 8 MG/250 ML PLAST..BAG 37.7 MG IV (07:54)
[2023-04-30] MEDS: Insulin Glargine,Hum.rec.anlog 100 UNIT/ML 10 ML VIAL 10 UNIT SUBCUT (07:54)
--- NOTE | 2023-04-30 08:50 | MHC.CLN ---
F/U PT IS INTUBATED AND SEDATED PT IS CURRENTLY NPO IF TF NEEDED; RECOMMEND NEPRO AT MAX GOAL RATE 45ML/HR TO PROVIDE 1944KCALS, 87G PROTEIN, 785ML FREE WATER MONITOR TOLERANCE, RESIDUALS AND LYTES SEE ALSO FULL CLINICAL NUTRITION ASSESSMENT
[2023-04-30 11:28] LABS: Glucose, Whole Blood 154 mg/dL (60-115)
[2023-04-30] MEDS: Insulin Lispro 100 UNIT/ML 3 ML VIAL SUBCUT ×2 (11:31)
[2023-04-30] MEDS: Norepinephrine Bitartrate/D5W 8 MG/250 ML PLAST..BAG 34.28 MG IV (14:46)
--- NOTE | 2023-04-30 15:15 | MHC.CM.PN ---
Pt successfully extubated and on nasal canula O2. Pt is a LTC resident of [facility] in [place] and will return once he is medically cleared. Pt's son/HCP aware and in agreement w/plan.
--- NOTE | 2023-04-30 15:58 | P.PNCC_ITS ---
Subjective Subjective Date of Service: 04/30/23 Interval History: An 82-year-old male who was admitted and now we know of course with urosepsis but he grew out Enterococcus that 100,000 colonies as well as a Gram-negative [place] from his urine which I believe was the precipitating issue but when he started to altered mental status he aspirated in came in with but in a bilateral aspiration pneumonitis Being covered with vancomycin and Zosyn doing very well afebrile progressively but slowly coming off of his norepinephrine support but is minute ventilatory requirements came down to approximately 7 L and FiO2 requirements down to 25% and as he regained his cognitive function following commands perfectly perfect eye contact and so on we gave him 2 full days of pressure support ventilation he did beautifully all day today he was extubated comfortably to nasal cannula Critical Care Time (minutes): 45 Physical Exam Vital Signs: Vital Signs: Last Vital Signs Temp 99.1 F 04/30/23 15:00 Pulse 81 04/30/23 15:00 Resp 20 04/30/23 15:00 BP 106/59 L 04/30/23 15:00 Pulse Ox 98 04/30/23 15:00 O2 Del Method Nasal Cannula wit h Capnography 04/30/23 15:00 O2 Flow Rate 2 04/30/23 15:00 FiO2 25 04/30/23 14:00 BMI result Body Mass Index 29.5 Currently 105/60 with a mean of 72 oxygen saturation is 98% stable end-tidal CO2 and sinus rhythm at rate of 69 Good cognitive function nonfocal neurologically Bedside echo with preserved LV function at least systolic function Abdomen soft tolerating feedings no organomegaly nontender Chest with bilateral scattered coarse rales still but he has got good cough and clearing Objective Data Labs 04/30/23 04:24 04/30/23 04:24 Labs: Laboratory Results - last 24 hr 04/29/23 04/29/23 04/30/23 17:31 23:48 02:01 WBC RBC Hgb Hct MCV MCH MCHC RDW Plt Count MPV Immature Gran % (Auto) Neut % (Auto) Lymph % (Auto) [place] % (Auto) Eos % (Auto) Baso % (Auto) Lymph # (Auto) [place] # (Auto) Eos # (Auto) Baso # (Auto) Abs Immat Gran (auto) Absolute Neuts (auto) Absolute Nucleated RBC Nucleated RBC % (auto) Neutrophils % (Manual) Band Neutrophils % Lymphocytes % (Manual) Monocytes % (Manual) Eosinophils % (Manual) Metamyelocytes % Abs Neuts (Manual) Lymphocytes # (Manual) Monocytes # (Manual) Eosinophils # (Manual) Metamyelocytes # Dohle Bodies Platelet Estimate Plt Morphology Comment RBC Morphology Target Cells Ovalocytes Rom Cells Acanthocytes (Spur) Schistocytes VBG pH VBG pCO2 VBG pO2 VBG HCO3 VBG O2 Saturation VBG Base Excess Sodium Potassium Chloride Carbon Dioxide Anion Gap BUN Creatinine Estim Creat Clear Calc Estimated GFR POC Glucose 152 H 165 H Random Glucose Calcium Phosphorus Magnesium Total Bilirubin AST ALT Alkaline Phosphatase Total Protein Albumin Random Vancomycin 13.8 L 04/30/23 04/30/23 04/30/23 04:24 04:24 04:32 WBC 15.0 H RBC 3.48 L Hgb 10.4 L Hct 31.6 L MCV 90.8 MCH 29.9 MCHC 32.9 RDW 15.0 Plt Count 205 MPV 9.3 L Immature Gran % (Auto) Cancelled Neut % (Auto) Cancelled Lymph % (Auto) Cancelled [place] % (Auto) Cancelled Eos % (Auto) Cancelled Baso % (Auto) Cancelled Lymph # (Auto) Cancelled [place] # (Auto) Cancelled Eos # (Auto) Cancelled Baso # (Auto) Cancelled Abs Immat Gran (auto) Cancelled Absolute Neuts (auto) Cancelled Absolute Nucleated RBC 0.000 Nucleated RBC % (auto) 0.0 Neutrophils % (Manual) 55 Band Neutrophils % 23 H Lymphocytes % (Manual) 17 L Monocytes % (Manual) 2 Eosinophils % (Manual) 1 Metamyelocytes % 2 Abs Neuts (Manual) 11.7 H Lymphocytes # (Manual) 2.6 Monocytes # (Manual) 0.3 Eosinophils # (Manual) 0.2 Metamyelocytes # 0.3 Dohle Bodies PRESENT Platelet Estimate NORMAL Plt Morphology Comment NORMAL RBC Morphology NOTED Target Cells 1+ (5-14) Ovalocytes 1+ (5-14) [place] Cells 2+ (3-5) Acanthocytes (Spur) 1+ (0-2) Schistocytes 1+ (0-2) VBG pH 7.50 H VBG pCO2 40 VBG pO2 36 VBG HCO3 31 H VBG O2 Saturation 57.0 VBG Base Excess 8.2 Sodium 140 Potassium 3.2 L Chloride 101 Carbon Dioxide 25 Anion Gap 17 BUN 18 H Creatinine 1.80 H Estim Creat Clear Calc 39.5 Estimated GFR 36 POC Glucose Random Glucose 138 H Calcium 9.3 Phosphorus 1.3 L Magnesium 2.0 Total Bilirubin 2.9 H AST 32 ALT 30 Alkaline Phosphatase 146 H Total Protein 6.2 L Albumin 3.2 L Random Vancomycin 04/30/23 04/30/23 05:48 11:25 WBC RBC Hgb Hct MCV MCH MCHC RDW Plt Count MPV Immature Gran % (Auto) Neut % (Auto) Lymph % (Auto) [place] % (Auto) Eos % (Auto) Baso % (Auto) Lymph # (Auto) [place] # (Auto) Eos # (Auto) Baso # (Auto) Abs Immat Gran (auto) Absolute Neuts (auto) Absolute Nucleated RBC Nucleated RBC % (auto) Neutrophils % (Manual) Band Neutrophils % Lymphocytes % (Manual) Monocytes % (Manual) Eosinophils % (Manual) Metamyelocytes % Abs Neuts (Manual) Lymphocytes # (Manual) Monocytes # (Manual) Eosinophils # (Manual) Metamyelocytes # Dohle Bodies Platelet Estimate Plt Morphology Comment RBC Morphology Target Cells Ovalocytes [place] Cells Acanthocytes (Spur) Schistocytes VBG pH VBG pCO2 VBG pO2 VBG HCO3 VBG O2 Saturation VBG Base Excess Sodium Potassium Chloride Carbon Dioxide Anion Gap BUN Creatinine Estim Creat Clear Calc Estimated GFR POC Glucose 130 H 154 H Random Glucose Calcium Phosphorus Magnesium Total Bilirubin AST ALT Alkaline Phosphatase Total Protein Albumin Random Vancomycin Microbiology Microbiology Results: Microbiology 04/28/23 Unknown Urine Catheterized - Villanueva Catheter Urine Culture - Preliminary Gram negative [place] Enterococcus/Streptococcus sp 04/28/23 04:20 Sputum - Suctioned Gram Stain - Final 04/28/23 04:20 Sputum - Suctioned Sputum Culture - Final 04/28/23 01:33 Blood - Venous Blood Culture - Preliminary No growth after 48 hours. 04/28/23 00:23 Blood - Venous Blood Culture - Preliminary No growth after 48 hours. Progress Note: A&P Assessment and plan (1) Hypophosphatemia: Status: Acute (2) Hypokalemia due to excessive gastrointestinal loss of potassium: Status: Acute (3) Hypomagnesemia: Status: Acute (4) Seizure disorder: Status: Acute (5) Type 2 diabetes mellitus: Status: Acute (6) Acute renal failure (ARF): Status: Acute (7) Aspiration pneumonitis due to regurgitated gastric secretions: Status: Acute (8) Acute respiratory failure: Status: Acute (9) Metabolic encephalopathy: Status: Acute (10) Hypokalemia: Status: Acute (11) Urinary tract infection due to Enterococcus: Status: Acute Plan So we will maintain vancomycin and Zosyn and we will maintain his NG tube for feeding until he gets a swallow evaluation in the morning Quality Stroke Does the patient have a stroke diagnosis?: No VTE Prior VTE?: No VTE Risk Level:: Medical - moderate - high VTE Device Contraindication: N/A - Device Ordered VTE Drug Contraindication: N/A - Med Ordered
[2023-04-30 20:16] LABS: VBG Base Excess 3.3 mmol/L; VBG HCO3 27 mmol/L (22-26); VBG pCO2 41 mmHg; VBG pH 7.43 (7.32-7.43); VBG pO2 67 mmHg
[2023-04-30 21:06] LABS: Venous Blood Gas Refer to POC result
[2023-04-30 21:31] LABS: Glucose, Whole Blood 118 mg/dL (60-115)
[2023-04-30] MEDS: Norepinephrine Bitartrate/D5W 8 MG/250 ML PLAST..BAG 27.42 MG IV (21:59)
[2023-05-01] VITALS (42 sets, daily range): BP systolic 86–130; BP diastolic 39–81; PULSE 64–99; RESP 16–38; TEMP 36.4–37.5; O2SAT 90–100; BMI 29.7
[2023-05-01 00:27] LABS: Glucose, Whole Blood 115 mg/dL (60-115)
[2023-05-01] MEDS: Enoxaparin Sodium 40 MG/0.4 ML SYRINGE SUBCUT (01:50)
[2023-05-01] MEDS: levETIRAcetam 750 MG in 0.9 % Sodium Chloride 100 ML 430 MG IV ×2 (01:50→13:19)
[2023-05-01] MEDS: KCl 20 mEq in 0.45% Sod 20 MEQ/1,000 ML IV.SOLN 80 MEQ IVCONT ×2 (01:50→13:26)
[2023-05-01 02:14] LABS: Vancomycin Random 14.3 mcg/mL (15-20)
[2023-05-01 04:27] LABS: VBG Base Excess 2.3 mmol/L; VBG HCO3 28 mmol/L (22-26); VBG pCO2 48 mmHg; VBG pH 7.37 (7.32-7.43); VBG pO2 41 mmHg
[2023-05-01 04:58] LABS: Hemoglobin 9.9 g/dl (14.0-18.0); Mean Corpuscular HGB Conc 31.9 g/dl (31.0-36.0); Mean Corpuscular Volume 93.9 fL (80.0-98.0); Mean Platelet Volume 9.6 fL (9.4-12.4); Platelet Count 193 X10*3/uL (160-400); White Blood Count 16.7 X10*3/uL (4.8-10.8)
[2023-05-01] MEDS: vancomycin HCL 1,000 MG in 0.9 % Sodium Chloride 250 ML 270 MG IV (05:04)
[2023-05-01 05:12] LABS: Estimated Glomerular Filt Rate 44
[2023-05-01 05:18] LABS: Alanine Aminotransferase 26 U/L (0-40); Alkaline Phosphatase 181 U/L (39-117); Anion Gap 17 (12-20); Aspartate Amino Transferase 25 U/L (5-37); Bilirubin Total 2.8 mg/dL (0.0-1.0); Blood Urea Nitrogen 19 mg/dL (9-16); Calcium 8.9 mg/dL (8.4-10.2); Carbon Dioxide 24 mmol/L (22-29); Chloride 107 mmol/L (96-108); Creatinine Clr Calc Pharmacy 47.3; Estimated Glomerular Filt Rate 44; Glucose Random 119 mg/dL (60-115); Phosphorus 2.5 mg/dL (2.7-4.5); Potassium 4.2 mmol/L (3.3-5.1); Sodium 144 mmol/L (135-145); Total Protein 6.5 g/dL (6.5-8.0)
[2023-05-01 05:21] LABS: Band Neutrophils Percent 10 % (3-5); Eosinophils Absolute Manual 0.2 X10*3/uL (0.0-0.4); Eosinophils Percent Manual 1 % (0-4); Lymphocytes Absolute Manual 1.2 X10*3/uL (1.2-4.9); Lymphocytes Percent Manual 7 % (20-40); Monocytes Absolute Manual 0.2 X10*3/uL (0.1-1.2); Monocytes Percent Manual 1 % (2-11); Neutrophils Absolute Manual 15.2 X10*3/uL (2.0-8.3); Neutrophils Percent Manual 81 % (45-73); RBC Morphology NOTED
[2023-05-01 05:22] LABS: Acanthocytes 1+ (0-2) /OIF; Burr Cells 2+ (3-5) /OIF; Ovalocytes 1+ (5-14) /OIF; Schistocytes 1+ (0-2) /OIF
[2023-05-01 05:23] LABS: Dohle Bodies PRESENT
[2023-05-01 05:24] LABS: Platelet Estimate NORMAL (NORMAL); Platelet Morphology Comment NORMAL; Target Cells 1+ (5-14) /OIF
[2023-05-01] MEDS: Pantoprazole Sodium 40 MG/10 ML VIAL IVPUSH (05:38)
[2023-05-01] MEDS: Norepinephrine Bitartrate/D5W 8 MG/250 ML PLAST..BAG 30.85 MG IV (06:06)
--- NOTE | 2023-05-01 06:37 | PC.NURSE ---
ASSUMED CARE OF PT AT 1900. PT ON O2 AT 2L VIA NASAL CANNULA. HAS VERY WEAK CONGESTED COUGH AND NEEDS HELP TO SUCTION THICK COLON SPUTUM FROM OROPHARYNX. AT ONE POINT HAD TO NASALLY SUCTION PT FOR REMOVAL OF THICK SECRETIONS. O2 SATS STABLE THROUGHOUT SHIFT. PROVIDER AWARE OF THICK SECRETIONS AND OF SCATTERED INSPIRATORY AND EXPIRATORY RHONCHI. PCXR WAS DONE THIS MORNING AND REVIEWED BY PROVIDER. BP STABLE ON LEVO. ATTEMPTED TO WEAN BUT HAD TO GO BACK UP BP DROPPED. U/O IS GOOD 50-100 ML/HR. MONITOR SHOWS NSR, RATE 80'S. TLC INTACT RIGHT GROIN. SKIN INTACT. NO BM.
--- NOTE | 2023-05-01 06:38 | HE.PHANOTE ---
RE: VANCO Patients level came back this morning at 14.3.Patients AUC is shown to be therapeutic. RXinsight is suggesting to increase dose as current dose is predicted to start dropping to a level of 13. Will increase to 1250 mg Q24H as renal function has improved as well. Getting a random after one dose as patient did get admitted with very poor renal function. Next level 05/02 @0200. Predicted AUC 515.
[2023-05-01] MEDS: Albuterol/Iprat 2.5/0.5MG 3 ML AMPUL.NEB INHALE ×4 (07:09→19:38)
[2023-05-01] MEDS: Acetylcysteine 10 % 400 MG/4 ML VIAL INHALE ×4 (07:09→19:38)
[2023-05-01 07:56] LABS: Venous Blood Gas Refer to POC result
--- NOTE | 2023-05-01 08:54 | PM.CCPN ---
Subjective Subjective Date of Service: 05/01/23 Interval History: 82-year-old presented initially with urosepsis and then with altered mental status was noted and he had emesis and witnessed aspiration so he also had bilateral aspiration pneumonitis and he is growing out from urinary tract both gram-negative sy[place] as well as Enterococcus in and and then clearly of course in 0 institutional related we know colonization with aspiration so he is on vancomycin and Zosyn and is acute renal insufficiency seems to have repaired and plateaued but intake equals output bedside echo demonstrating good LV and RV function with no primary valve or pericardial disease but since yesterday's extubation he a clearly has developed a bibasilar atelectasis it largely on a on a hypo static basis for his cough is present but it does not seem he he bring the sputum up out of his chest is is the problem any may very well be reaspirated but clearly bilateral lung volumes markedly reduced and we took him off the with conventional oxygen delivery and started him on nasal high-flow at 50 L and and we are going to start the in of vigorous chest physiotherapy coughing clapping use of the and cephalad her in an intermittent nasotracheal suctioning as well and then will repeat an x-ray and see if he has re-expanded to a degree and if not if that fails then we might initiate a little bit a BiPAP to see if we could overcome some of that atelectasis Critical Care Time (minutes): 45 Physical Exam Vital Signs: Vital Signs: Last Vital Signs Temp 98.4 F 05/01/23 08:00 Pulse 84 05/01/23 08:40 Resp 31 H 05/01/23 08:40 BP 114/59 L 05/01/23 08:00 Pulse Ox 100 05/01/23 08:40 O2 Del Method Mechanical Ventil ation 05/01/23 08:00 O2 Flow Rate 40 05/01/23 08:00 FiO2 25 05/01/23 08:00 BMI result Body Mass Index 29.7 Good cognitive function awake and oriented and cooperative Bedside echo with preserved LV function Abdomen is benign no organomegaly and were waiting for swallow study because he pulled out his NG tube Lungs with coarse bilateral rhonchi Objective Data Labs 05/01/23 04:20 05/01/23 04:20 Labs: Laboratory Results - last 24 hr 04/30/23 04/30/23 04/30/23 11:25 17:25 20:06 WBC RBC Hgb Hct MCV MCH MCHC RDW Plt Count MPV Immature Gran % (Auto) Neut % (Auto) Lymph % (Auto) Bleck[place] % (Auto) Eos % (Auto) Baso % (Auto) Lymph # (Auto) [place] # (Auto) Eos # (Auto) Baso # (Auto) Abs Immat Gran (auto) Absolute Neuts (auto) Absolute Nucleated RBC Nucleated RBC % (auto) Neutrophils % (Manual) Band Neutrophils % Lymphocytes % (Manual) Monocytes % (Manual) Eosinophils % (Manual) Abs Neuts (Manual) Lymphocytes # (Manual) Monocytes # (Manual) Eosinophils # (Manual) Dohle Bodies Platelet Estimate Plt Morphology Comment RBC Morphology Target Cells Ovalocytes Tarkio Cells Acanthocytes (Spur) Schistocytes VBG pH 7.43 VBG pCO2 41 VBG pO2 67 VBG HCO3 27 H VBG O2 Saturation 89.0 VBG Base Excess 3.3 Sodium Potassium Chloride Carbon Dioxide Anion Gap BUN Creatinine Estim Creat Clear Calc Estimated GFR POC Glucose 154 H 118 H Random Glucose Calcium Phosphorus Magnesium Total Bilirubin AST ALT Alkaline Phosphatase Total Protein Albumin Random Vancomycin 05/01/23 05/01/23 05/01/23 00:23 01:51 04:16 WBC RBC Hgb Hct MCV MCH MCHC RDW Plt Count MPV Immature Gran % (Auto) Neut % (Auto) Lymph % (Auto) Bleck[place] % (Auto) Eos % (Auto) Baso % (Auto) Lymph # (Auto) [place] # (Auto) Eos # (Auto) Baso # (Auto) Abs Immat Gran (auto) Absolute Neuts (auto) Absolute Nucleated RBC Nucleated RBC % (auto) Neutrophils % (Manual) Band Neutrophils % Lymphocytes % (Manual) Monocytes % (Manual) Eosinophils % (Manual) Abs Neuts (Manual) Lymphocytes # (Manual) Monocytes # (Manual) Eosinophils # (Manual) Dohle Bodies Platelet Estimate Plt Morphology Comment RBC Morphology Target Cells Ovalocytes Rom Cells Acanthocytes (Spur) Schistocytes VBG pH 7.37 VBG pCO2 48 VBG pO2 41 VBG HCO3 28 H VBG O2 Saturation 62.0 VBG Base Excess 2.3 Sodium Potassium Chloride Carbon Dioxide Anion Gap BUN Creatinine Estim Creat Clear Calc Estimated GFR POC Glucose 115 Random Glucose Calcium Phosphorus Magnesium Total Bilirubin AST ALT Alkaline Phosphatase Total Protein Albumin Random Vancomycin 14.3 L 05/01/23 05/01/2323 04:20 04:20 04:20 WBC 16.7 H RBC 3.30 L Hgb 9.9 L Hct 31.0 L MCV 93.9 MCH 30.0 MCHC 31.9 RDW 15.0 Plt Count 193 MPV 9.6 Immature Gran % (Auto) Cancelled Neut % (Auto) Cancelled Lymph % (Auto) Cancelled Bleck[place] % (Auto) Cancelled Eos % (Auto) Cancelled Baso % (Auto) Cancelled Lymph # (Auto) Cancelled [place] # (Auto) Cancelled Eos # (Auto) Cancelled Baso # (Auto) Cancelled Abs Immat Gran (auto) Cancelled Absolute Neuts (auto) Cancelled Absolute Nucleated RBC 0.000 Nucleated RBC % (auto) 0.0 Neutrophils % (Manual) 81 H Band Neutrophils % 10 H Lymphocytes % (Manual) 7 L Monocytes % (Manual) 1 L Eosinophils % (Manual) 1 Abs Neuts (Manual) 15.2 H Lymphocytes # (Manual) 1.2 Monocytes # (Manual) 0.2 Eosinophils # (Manual) 0.2 Dohle Bodies PRESENT Platelet Estimate NORMAL Plt Morphology Comment NORMAL RBC Morphology NOTED Target Cells 1+ (5-14) Ovalocytes 1+ (5-14) Rom Cells 2+ (3-5) Acanthocytes (Spur) 1+ (0-2) Schistocytes 1+ (0-2) VBG pH VBG pCO2 VBG pO2 VBG HCO3 VBG O2 Saturation VBG Base Excess Sodium 144 Potassium 4.2 D Chloride 107 Carbon Dioxide 24 Anion Gap 17 BUN 19 H Creatinine 1.53 H 1.52 H Estim Creat Clear Calc 47.0 47.3 Estimated GFR 44 44 POC Glucose Random Glucose 119 H Calcium 8.9 Phosphorus 2.5 L Magnesium 2.0 Total Bilirubin 2.8 H AST 25 ALT 26 Alkaline Phosphatase 181 H Total Protein 6.5 Albumin 3.0 L Random Vancomycin Microbiology Microbiology Results: Microbiology 04/28/23 Unknown Urine Catheterized - Villanueva Catheter Urine Culture - Final Escherichia coli Enterococcus faecalis 04/28/23 04:20 Sputum - Suctioned Gram Stain - Final 04/28/23 04:20 Sputum - Suctioned Sputum Culture - Final 04/28/23 01:33 Blood - Venous Blood Culture - Preliminary No growth after 48 hours. 04/28/23 00:23 Blood - Venous Blood Culture - Preliminary No growth after 48 hours. Progress Note: A&P Assessment and plan (1) Urinary tract infection due to Enterococcus: Status: Acute (2) Hypophosphatemia: Status: Acute (3) Hypokalemia due to excessive gastrointestinal loss of potassium: Status: Acute (4) Hypomagnesemia: Status: Acute (5) Seizure disorder: Status: Acute (6) Type 2 diabetes mellitus: Status: Acute (7) Acute renal failure (ARF): Status: Acute (8) Aspiration pneumonitis due to regurgitated gastric secretions: Status: Acute (9) Acute respiratory failure: Status: Acute (10) Metabolic encephalopathy: Status: Acute (11) Hypokalemia: Status: Acute Plan The problem is the pulmonary toileting the inability to cough and completely clear so were going to involve respiratory with more vigorous chest physiotherapy including the encephalator and repeat his chest x-ray in if the nasal high-flow is inadequate in diminishing some of the lost the volume then will consider BiPAP Quality Stroke Does the patient have a stroke diagnosis?: No VTE Prior VTE?: No VTE Risk Level:: Medical - moderate - high VTE Device Contraindication: N/A - Device Ordered VTE Drug Contraindication: N/A - Med Ordered
--- NOTE | 2023-05-01 09:00 | MHC.CLN ---
Addendum entered by Alice Madrigal, RD 05/01/23 09:23: ADDENDUM: PT PULLED NGT WILL RETURN TO NPO AT THIS TIME PER MD POSSIBLE RE-INTUBATION TODAY PER MD FOLLOWING WITH TEAM Original Note: F/U PT REMAINS INTUBATED RECOMMEND GLUCERNA AT MAX GOAL RATE 80 ML/HR TO PROVIDE 1920KCALS, 80G PROTEIN, 2323ML TOTAL FREE WATER FROM FORMULA AND FLUSHES (29ML/KG) START FORMULA AT 20ML/HR AND INCREASE BY 10ML Q 4 HRS UNTIL MAX GOAL IS ACHIEVED MONITOR TOLERANCE, RESIDUALS AND LYTES
[2023-05-01 11:53] LABS: Glucose, Whole Blood 119 mg/dL (60-115)
--- NOTE | 2023-05-01 13:35 | MHC.CM.PN ---
Patient remains in ICU. Patient is a long-term care resident of [facility]. T/W is attempting to obtain a copy of HCP. Will need BLS at d/c. Continue to monitor for d/c needs.
--- NOTE | 2023-05-01 14:23 | MHC.SLORD ---
Speech Language Pathology Order Status: Per conversation w/ RN, pt would benefit from deferring bedside swallow evaluation w/ COMPOSITION TEACHER until tomorrow. Pt extubated ~3pm on 04/30. Pt currently presenting w/ soft sounding voice, weak & minimally productive cough, and requiring suctioning. Pt reportedly removed NG tube last night. COMPOSITION TEACHER to evaluate tomorrow morning 05/02.
[2023-05-01] MEDS: Norepinephrine Bitartrate/D5W 8 MG/250 ML PLAST..BAG 13.71 MG IV (15:17)
--- NOTE | 2023-05-01 17:02 | MHC.CM.PN ---
HCP received from [facility]. Uploaded into [facility] and [facility].
[2023-05-01 17:37] LABS: Glucose, Whole Blood 108 mg/dL (60-115)
[2023-05-01 23:53] LABS: Glucose, Whole Blood 115 mg/dL (60-115)
[2023-05-02] VITALS (43 sets, daily range): BP systolic 84–152; BP diastolic 37–71; PULSE 68–98; RESP 18–38; TEMP 36.5–37.7; O2SAT 92–100; BMI 26.9
[2023-05-02] MEDS: KCl 20 mEq in 0.45% Sod 20 MEQ/1,000 ML IV.SOLN 80 MEQ IVCONT ×2 (01:09→12:44)
[2023-05-02] MEDS: levETIRAcetam 750 MG in 0.9 % Sodium Chloride 100 ML 430 MG IV ×2 (01:10→12:30)
[2023-05-02] MEDS: Enoxaparin Sodium 40 MG/0.4 ML SYRINGE SUBCUT (02:42)
[2023-05-02] MEDS: vancomycin HCL 1,250 MG in 0.9 % Sodium Chloride 250 ML 166.67 MG IV (03:22)
[2023-05-02] MEDS: Norepinephrine Bitartrate/D5W 8 MG/250 ML PLAST..BAG 13.71 MG IV (03:23)
[2023-05-02 04:25] LABS: VBG Base Excess 2.3 mmol/L; VBG HCO3 27 mmol/L (22-26); VBG pCO2 43 mmHg; VBG pO2 45 mmHg
[2023-05-02 04:29] LABS: MANUAL DIFF FLAG NO
[2023-05-02 04:30] LABS: Basophils Percent Auto 0.3 % (0-2); Eosinophils Absolute Auto 0.2 X10*3/uL (0.0-0.4); Eosinophils Percent Auto 1.8 % (0-4); Hemoglobin 8.6 g/dl (14.0-18.0); Imm Gran Abs Auto 0.06 X10*3/uL (0.00-0.03); Imm Gran Pct Auto 0.5 % (0.0-0.4); Lymphocytes Absolute Auto 1.4 X10*3/uL (1.2-4.9); Lymphocytes Percent Auto 12.5 % (20-40); Mean Corpuscular HGB Conc 31.9 g/dl (31.0-36.0); Mean Corpuscular Hemoglobin 29.6 pg (27.0-33.0); Mean Corpuscular Volume 92.8 fL (80.0-98.0); Mean Platelet Volume 9.1 fL (9.4-12.4); Monocytes Absolute Auto 0.4 X10*3/uL (0.1-1.2); Monocytes Percent Auto 3.7 % (2-11); Neutrophils Absolute Auto 9.1 x10*3/uL (2.0-8.3); Neutrophils Percent Auto 81.2 % (45-73); Platelet Count 154 X10*3/uL (160-400); Red Blood Count 2.91 X10*6/uL (4.60-5.80); White Blood Count 11.2 X10*3/uL (4.8-10.8)
[2023-05-02 04:45] LABS: Alanine Aminotransferase 20 U/L (0-40); Albumin Level 2.8 g/dL (3.5-5.0); Alkaline Phosphatase 130 U/L (39-117); Anion Gap 12 (12-20); Aspartate Amino Transferase 17 U/L (5-37); Bilirubin Total 1.9 mg/dL (0.0-1.0); Blood Urea Nitrogen 19 mg/dL (9-16); Calcium 8.5 mg/dL (8.4-10.2); Carbon Dioxide 24 mmol/L (22-29); Chloride 109 mmol/L (96-108); Creatinine Clr Calc Pharmacy 52.5; Estimated Glomerular Filt Rate 50; Glucose Random 126 mg/dL (60-115); Magnesium 1.7 mg/dL (1.6-2.6); Phosphorus 1.8 mg/dL (2.7-4.5); Potassium 3.9 mmol/L (3.3-5.1); Sodium 141 mmol/L (135-145); Total Protein 5.9 g/dL (6.5-8.0)
[2023-05-02 04:48] LABS: Vancomycin Random 30.9 mcg/mL (15-20)
[2023-05-02] MEDS: Albumin Human 25 % 100 ML IV ×3 (05:06→13:24)
[2023-05-02 05:27] LABS: Venous Blood Gas Refer to POC result
[2023-05-02] MEDS: Pantoprazole Sodium 40 MG/10 ML VIAL IVPUSH (05:31)
[2023-05-02 05:45] LABS: Glucose, Whole Blood 106 mg/dL (60-115)
[2023-05-02 07:02] LABS: INTERNATIONAL NORM RATIO 1.1 (0.9-1.1); Prothrombin Time 12.1 SEC (10.0-13.1)
[2023-05-02 07:05] LABS: Partial Thromboplastin Time 26.6 SEC (26.0-36.4)
[2023-05-02 07:34] LABS: Lactate Dehydrogenase 132 U/L (118-273)
[2023-05-02] MEDS: cefTRIAXone sodium 2 GM in 0.9 % Sodium Chloride 50 ML IV (08:05)
[2023-05-02] MEDS: Insulin Glargine,Hum.rec.anlog 100 UNIT/ML 10 ML VIAL 10 UNIT SUBCUT (08:06)
[2023-05-02] MEDS: Acetylcysteine 10 % 400 MG/4 ML VIAL INHALE ×4 (08:29→19:49)
[2023-05-02] MEDS: Albuterol/Iprat 2.5/0.5MG 3 ML AMPUL.NEB INHALE ×4 (08:29→19:50)
--- NOTE | 2023-05-02 11:13 | MHC.SL.SWA ---
Speech Pathologist Impression: Risk of Aspiration Due to: Medically Fragile History of Pneumonia Reduced Cognition Dysphasia Diet Status: Liquid Consistency and Strategies for Safe Swallow: Liquid Intake Recommendation: Honey Thick Liquid Intake Strategies: Liquids by Teaspoon Only Solid Food Consistency: Dietary Recommendations: Pureed (NDD1) Additional Modifications to Solid Foods: Patient will required 1-1 feeding, with all food and liquid presented by tsp amounts. Patient tends to hold food or liquid bolus in mouth for a prolonged period, then has delayed swallow, so he will require very close observation that swallowing has occurred before presenting more food and liquid. Closely monitor for signs of aspiration, including drop in O2 saturation, increased upper airway noise, and chalo coughing on food or liquid. Discontinue feeding is aspiration signs are evident. Oral Medication Intake: Crushed with Puree Please contact the pharmacy regarding appropriate crushable or liquid drug formulations that are available whenever modified delivery is recommended. Compensatory Strategies and Precautions to be Taken for Safe Swallow: Sitting Upright (90 deg) No Straw Liquids from Spoon Small Bites and Sips Rate of Ingestion Change Oral Check Avoid Specific Foods Supervision While Eating and Drinking for Safe Swallow: Total Assistance (1:1) Foods to Avoid: Very sticky, congealed purees. Add sauces/gravies. Liquids by teaspoon only. Swallowing Recommended Treatments: Compens. Strategy Educat. Recommendation for Speech: Inpatient Speech Therapy Comment: Patient presents with mild to moderate oral pharyngeal dysphagia, characterized by reduced strength of oral structures, prolonged oral phase on all consistencies followed by a moderate delay initiating swallow. Recommend START diet of PUREE (NDD1) with HONEY THICK liquids by teaspoon only, with pills crushed in puree. Patient will require a one to one feed with very close monitor that patient has swallowed before presenting additional food or liquid, and close monitor for toleration without evidence of aspiration. Discussed with RNMD in person, notified RD by secure text. SIGN BOARD ERECTOR will continue to follow for toleration, upgrade of diet if/when warranted. Frequency/Duration: M-F while inpatient. Date Range for Service Req: Timeline to reassess: Cardio Clinician Clinican/Clinical Fellow: No Supervisory Statement: I have reviewed and agree with the student/clinical fellow's documentation: N/A Speech Language Pathologist: Jenny Arshad M.A., [facility]-SIGN BOARD ERECTOR
[2023-05-02 11:51] LABS: Glucose, Whole Blood 103 mg/dL (60-115)
[2023-05-02] MEDS: Ampicillin Sodium/Sulbactam Na 3 GM in 0.9 % Sodium Chloride 100 ML IV ×3 (12:43→23:43)
--- NOTE | 2023-05-02 13:11 | MHC.CM.PN ---
Pt continues care in ICU: on hi flow O2. Clinical updates sent to [facility] where pt is a LTC resident. No plans for d/c at this time. CM to follow
--- NOTE | 2023-05-02 13:44 | PM.CCPN ---
Subjective Subjective Date of Service: 05/02/23 Interval History: 82-year-old status post the urosepsis and witnessed aspiration with bilateral aspiration pneumonitis has been extubated now for enough for 2 days but has weak cough weak Kei has bilateral atelectasis and is getting as vigorous as chest physiotherapy is can be provided and remains on initially vancomycin and Zosyn but growing E coli and Enterococcus they both share sensitivity to ampicillin/sulbactam to bed 12 were currently on still remains on a very small amount of Levophed to maintain systolic pressures of 100 His acute kidney insufficiency has repaired very nicely but off the Levophed is your his urine output volume diminished so he is back on Levophed for the time being also received 25 g of albumin Critical Care Time (minutes): 45 Physical Exam Vital Signs: Vital Signs: Last Vital Signs Temp 98.1 F 05/02/23 12:00 Pulse 87 05/02/23 13:24 Resp 18 05/02/23 12:46 BP 84/37 L 05/02/23 13:24 Pulse Ox 99 05/02/23 12:46 O2 Del Method High Flow Nasal C annula 05/02/23 12:00 O2 Flow Rate 35 05/02/23 12:00 FiO2 30 05/02/23 12:00 BMI result Body Mass Index 26.9 He is got good cognitive function and nonfocal neurologically Bedside echo with preserved LV systolic function Abdomen soft no organomegaly but swallow study requires pureed food with honey thickening very slow feedings and because of that I am just concerned with aspiration Lungs with the bibasilar rales Objective Data Labs 05/02/23 04:20 05/02/23 04:20 Labs: Laboratory Results - last 24 hr 05/01/23 05/01/23 05/02/23 17:34 23:49 04:15 WBC RBC Hgb Hct MCV MCH MCHC RDW Plt Count MPV Immature Gran % (Auto) Neut % (Auto) Lymph % (Auto) Ramsey % (Auto) Eos % (Auto) Baso % (Auto) Lymph # (Auto) Ramsey # (Auto) Eos # (Auto) Baso # (Auto) Abs Immat Gran (auto) Absolute Neuts (auto) Absolute Nucleated RBC Nucleated RBC % (auto) PT INR APTT VBG pH 7.40 VBG pCO2 43 VBG pO2 45 VBG HCO3 27 H VBG O2 Saturation 72.0 VBG Base Excess 2.3 Sodium Potassium Chloride Carbon Dioxide Anion Gap BUN Creatinine Estim Creat Clear Calc Estimated GFR POC Glucose 108 115 Random Glucose Calcium Phosphorus Magnesium Total Bilirubin AST ALT Alkaline Phosphatase Lactate Dehydrogenase Total Protein Albumin Random Vancomycin CHARU, Polyspecific Positive CHARU Work-up 05/02/23 05/02/23 05/02/23 04:20 04:20 04:20 WBC 11.2 H RBC 2.91 L Hgb 8.6 L Hct 27.0 L MCV 92.8 MCH 29.6 MCHC 31.9 RDW 15.0 Plt Count 154 L MPV 9.1 L Immature Gran % (Auto) 0.5 H Neut % (Auto) 81.2 H Lymph % (Auto) 12.5 L Ramsey % (Auto) 3.7 Eos % (Auto) 1.8 Baso % (Auto) 0.3 Lymph # (Auto) 1.4 Ramsey # (Auto) 0.4 Eos # (Auto) 0.2 Baso # (Auto) 0.0 Abs Immat Gran (auto) 0.06 H Absolute Neuts (auto) 9.1 H Absolute Nucleated RBC 0.000 Nucleated RBC % (auto) 0.0 PT INR APTT VBG pH VBG pCO2 VBG pO2 VBG HCO3 VBG O2 Saturation VBG Base Excess Sodium 141 Potassium 3.9 Chloride 109 H Carbon Dioxide 24 Anion Gap 12 BUN 19 H Creatinine 1.37 Estim Creat Clear Calc 52.5 Estimated GFR 50 POC Glucose Random Glucose 126 H Calcium 8.5 Phosphorus 1.8 L Magnesium 1.7 Total Bilirubin 1.9 H AST 17 ALT 20 Alkaline Phosphatase 130 H Lactate Dehydrogenase Total Protein 5.9 L Albumin 2.8 L Random Vancomycin 30.9 H* CHARU, Polyspecific Positive CHARU Work-up 05/02/23 05/02/23 05/02/23 05:40 06:44 06:44 WBC RBC Hgb Hct MCV MCH MCHC RDW Plt Count MPV Immature Gran % (Auto) Neut % (Auto) Lymph % (Auto) Ramsey % (Auto) Eos % (Auto) Baso % (Auto) Lymph # (Auto) Ramsey # (Auto) Eos # (Auto) Baso # (Auto) Abs Immat Gran (auto) Absolute Neuts (auto) Absolute Nucleated RBC Nucleated RBC % (auto) PT 12.1 INR 1.1 APTT 26.6 VBG pH VBG pCO2 VBG pO2 VBG HCO3 VBG O2 Saturation VBG Base Excess Sodium Potassium Chloride Carbon Dioxide Anion Gap BUN Creatinine Estim Creat Clear Calc Estimated GFR POC Glucose 106 Random Glucose Calcium Phosphorus Magnesium Total Bilirubin AST ALT Alkaline Phosphatase Lactate Dehydrogenase Total Protein Albumin Random Vancomycin 27.0 H* CHARU, Polyspecific Positive CHARU Work-up 05/02/23 05/02/23 05/02/23 06:44 06:44 11:45 WBC RBC Hgb Hct MCV MCH MCHC RDW Plt Count MPV Immature Gran % (Auto) Neut % (Auto) Lymph % (Auto) Ramsey % (Auto) Eos % (Auto) Baso % (Auto) Lymph # (Auto) Ramsey # (Auto) Eos # (Auto) Baso # (Auto) Abs Immat Gran (auto) Absolute Neuts (auto) Absolute Nucleated RBC Nucleated RBC % (auto) PT INR APTT VBG pH VBG pCO2 VBG pO2 VBG HCO3 VBG O2 Saturation VBG Base Excess Sodium Potassium Chloride Carbon Dioxide Anion Gap BUN Creatinine Estim Creat Clear Calc Estimated GFR POC Glucose 103 Random Glucose Calcium Phosphorus Magnesium Total Bilirubin AST ALT Alkaline Phosphatase Lactate Dehydrogenase 132 Total Protein Albumin Random Vancomycin CHARU, Polyspecific NEGATIVE Positive CHARU Work-up TNP Microbiology Microbiology Results: Microbiology 04/28/23 Unknown Urine Catheterized - Villanueva Catheter Urine Culture - Final Escherichia coli Enterococcus faecalis 04/28/23 04:20 Sputum - Suctioned Gram Stain - Final 04/28/23 04:20 Sputum - Suctioned Sputum Culture - Final 04/28/23 01:33 Blood - Venous Blood Culture - Preliminary No growth after 48 hours. 04/28/23 00:23 Blood - Venous Blood Culture - Preliminary No growth after 48 hours. Progress Note: A&P Assessment and plan (1) Hypoventilation: Status: Acute (2) Urinary tract infection due to Enterococcus: Status: Acute (3) Hypophosphatemia: Status: Acute (4) Hypokalemia due to excessive gastrointestinal loss of potassium: Status: Acute (5) Hypomagnesemia: Status: Acute (6) Seizure disorder: Status: Acute (7) Type 2 diabetes mellitus: Status: Acute (8) Acute renal failure (ARF): Status: Acute (9) Aspiration pneumonitis due to regurgitated gastric secretions: Status: Acute (10) Acute respiratory failure: Status: Acute (11) Metabolic encephalopathy: Status: Acute (12) Hypokalemia: Status: Acute Plan So the plan is to maintain Unasyn as her as his antibiotic treatment vigorous chest physiotherapy and hope that we can wean the Levophed transfer to telemetry Quality Stroke Does the patient have a stroke diagnosis?: No VTE Prior VTE?: No VTE Risk Level:: Medical - moderate - high VTE Device Contraindication: N/A - Device Ordered VTE Drug Contraindication: N/A - Med Ordered
[2023-05-02 18:00] LABS: Glucose, Whole Blood 111 mg/dL (60-115)
[2023-05-02 18:23] LABS: Vancomycin Random 19.1 mcg/mL (15-20)
[2023-05-02 20:12] LABS: Glucose, Whole Blood 97 mg/dL (60-115)
[2023-05-02 20:24] LABS: Glucose, Whole Blood 90 mg/dL (60-115)
[2023-05-02] MEDS: bisacodyL 10 MG SUPP.RECT PR (20:41)
[2023-05-02 23:40] LABS: Glucose, Whole Blood 90 mg/dL (60-115)
[2023-05-03] VITALS (35 sets, daily range): BP systolic 93–155; BP diastolic 45–115; PULSE 88–104; RESP 19–41; TEMP 36.9–37.5; O2SAT 90–100; BMI 29.3
[2023-05-03] MEDS: KCl 20 mEq in 0.45% Sod 20 MEQ/1,000 ML IV.SOLN 80 MEQ IVCONT (01:00)
[2023-05-03] MEDS: Norepinephrine Bitartrate/D5W 8 MG/250 ML PLAST..BAG 13.71 MG IV (01:02)
[2023-05-03] MEDS: levETIRAcetam 750 MG in 0.9 % Sodium Chloride 100 ML 430 MG IV ×2 (01:37→13:28)
[2023-05-03] MEDS: Enoxaparin Sodium 40 MG/0.4 ML SYRINGE SUBCUT (02:46)
[2023-05-03 05:29] LABS: Glucose, Whole Blood 69 mg/dL (60-115)
[2023-05-03] MEDS: Ampicillin Sodium/Sulbactam Na 3 GM in 0.9 % Sodium Chloride 100 ML IV ×3 (05:33→18:18)
--- NOTE | 2023-05-03 06:01 | PC.NURSE ---
Addendum entered by Sandra Carpenter RN 05/03/23 06:38: unable to draw blood from the [facility]. Phlebotomy also unable to draw blood peripherally. Original Note: POC this morning is 69. Dr. Santos notified. advised to give a nectar thickened juice.
[2023-05-03 06:55] LABS: Glucose, Whole Blood 64 mg/dL (60-115)
[2023-05-03 07:01] LABS: VBG Base Excess 0.1 mmol/L; VBG HCO3 24 mmol/L (22-26); VBG pCO2 36 mmHg; VBG pH 7.43 (7.32-7.43); VBG pO2 71 mmHg
[2023-05-03] MEDS: Albuterol/Iprat 2.5/0.5MG 3 ML AMPUL.NEB INHALE ×4 (07:09→20:02)
[2023-05-03] MEDS: Acetylcysteine 10 % 400 MG/4 ML VIAL INHALE ×4 (07:09→20:02)
[2023-05-03 07:15] LABS: MANUAL DIFF FLAG NO
[2023-05-03 07:19] LABS: Basophils Percent Auto 0.2 % (0-2); Eosinophils Absolute Auto 0.1 X10*3/uL (0.0-0.4); Eosinophils Percent Auto 1.2 % (0-4); Hematocrit 26.4 % (42.0-52.0); Hemoglobin 8.5 g/dl (14.0-18.0); Imm Gran Abs Auto 0.09 X10*3/uL (0.00-0.03); Imm Gran Pct Auto 1.1 % (0.0-0.4); Lymphocytes Absolute Auto 1.4 X10*3/uL (1.2-4.9); Lymphocytes Percent Auto 17.5 % (20-40); Mean Corpuscular HGB Conc 32.2 g/dl (31.0-36.0); Mean Corpuscular Hemoglobin 29.8 pg (27.0-33.0); Mean Corpuscular Volume 92.6 fL (80.0-98.0); Mean Platelet Volume 9.8 fL (9.4-12.4); Monocytes Absolute Auto 0.6 X10*3/uL (0.1-1.2); Monocytes Percent Auto 7.2 % (2-11); Neutrophils Absolute Auto 5.8 x10*3/uL (2.0-8.3); Neutrophils Percent Auto 72.8 % (45-73); Platelet Count 131 X10*3/uL (160-400); Red Blood Count 2.85 X10*6/uL (4.60-5.80); Red Cell Distribution Width 14.8 % (11.0-16.0)
[2023-05-03 07:39] LABS: Glucose, Whole Blood 60 mg/dL (60-115)
[2023-05-03 07:40] LABS: Venous Blood Gas Refer to POC result
[2023-05-03 07:43] LABS: Estimated Glomerular Filt Rate 60
[2023-05-03] MEDS: Albumin Human 25 % 100 ML IV ×2 (07:51→08:33)
[2023-05-03 08:36] LABS: Glucose, Whole Blood 76 mg/dL (60-115)
[2023-05-03 08:39] LABS: Alanine Aminotransferase 11 U/L (0-40); Albumin Level 3.2 g/dL (3.5-5.0); Alkaline Phosphatase 125 U/L (39-117); Anion Gap 16 (12-20); Aspartate Amino Transferase 15 U/L (5-37); Bilirubin Total 1.1 mg/dL (0.0-1.0); Blood Urea Nitrogen 14 mg/dL (9-16); Calcium 8.8 mg/dL (8.4-10.2); Carbon Dioxide 21 mmol/L (22-29); Chloride 110 mmol/L (96-108); Creatinine Clr Calc Pharmacy 61.6; Estimated Glomerular Filt Rate > 60; Glucose Random 62 mg/dL (60-115); Magnesium 1.7 mg/dL (1.6-2.6); Phosphorus 1.9 mg/dL (2.7-4.5); Potassium 4.1 mmol/L (3.3-5.1); Sodium 143 mmol/L (135-145); Total Protein 6.1 g/dL (6.5-8.0)
[2023-05-03 10:14] LABS: Glucose, Whole Blood 170 mg/dL (60-115)
[2023-05-03 11:31] LABS: Glucose, Whole Blood 105 mg/dL (60-115)
--- NOTE | 2023-05-03 13:26 | MHC.SL.SWA ---
Speech Pathologist Impression: Risk of Aspiration Due to: Medically Fragile History of Pneumonia Reduced Cognition Dysphasia Diet Status: Recommend continue on PUREE (NDD1) with HONEY THICK liquids by tsp only, pills crushed in puree (no change), Liquid Consistency and Strategies for Safe Swallow: Liquid Intake Recommendation: Honey Thick Liquid Intake Strategies: Liquids by Teaspoon Only Solid Food Consistency: Dietary Recommendations: Pureed (NDD1) Additional Modifications to Solid Foods: Patient requires one to one feeding. Patient is very slow to feed, takes a prolonged time between bites. Closely monitor that patient has swallowed before presenting additional food or liquid. Alternated liquids and solids. Liquids by teaspoon only. Closely monitor for clinical signs of aspiration: Dip with limited recovery in 02 sats, increased upper respiratory congestion or chalo coughing after swallow. Oral Medication Intake: Crushed with Puree Please contact the pharmacy regarding appropriate crushable or liquid drug formulations that are available whenever modified delivery is recommended. Compensatory Strategies and Precautions to be Taken for Safe Swallow: Sitting Upright (90 deg) No Straw Liquids from Spoon Small Bites and Sips Rate of Ingestion Change Oral Check Avoid Specific Foods Supervision While Eating and Drinking for Safe Swallow: Total Assistance (1:1) Foods to Avoid: Very sticky, congealed purees. Add sauces/gravies. Liquids by teaspoon only. Swallowing Recommended Treatments: Compens. Strategy Educat. Recommendation for Speech: Inpatient Speech Therapy Comment: Patient was seen this a.m. for re-assessment and toleration of diet. Patient was awake and receptive to having some PO, now on nasal cannula. Bed was adjusted so patient was seated upright in bed. Patient was give tsp amounts of honey thick apple sauce, with patient producing a prolonged oral phase, manipulating the bolus with tongue, followed by moderate delay initiating swallow. No clinical signs of aspiration on five presentations of this consistency, 02 sats remained in the 90s. Patient then given puree conisistency, again producing similar pattern of prolonged oral phase with lingual manipulation of the bolus followed by moderated delay before initiating swallow. No clinical signs of aspiration on five presentations of puree, 02 sats remained in the 90s. Per RN, patient has tolerated small amounts of these consistencies at meals, takes a prolonged time between each bites and a prolonged time to feed, however he is tolerating well. Recommend continue on PUREE (NDD1) with HONEY THICK liquids by tsp only, pills crushed in puree (no change), Frequency/Duration: M-F while inpatient. Date Range for Service Req: Timeline to reassess: Subassemblies Wirer Clinican/Clinical Fellow: No Supervisory Statement: I have reviewed and agree with the student/clinical fellow's documentation: N/A Speech Language Pathologist: Jenny Arshad M.A., CCC-TRANSLATOR/INTERPRETER
--- NOTE | 2023-05-03 16:25 | P.PNCC_ITS ---
Subjective Subjective Date of Service: 05/03/23 Interval History: 82-year-old patient at [facility] apparently had urosepsis gradual alteration of of mental status and then following this witnessed aspiration so we had urinary tract infection in inclusive of E coli and Enterococcus each at 100,000 colonies and then witnessed aspiration which was institutional and initially covered with vancomycin and Zosyn and all organisms are susceptible to ampicillin so he is on IV Unasyn and he was extubated this is now at least 3 days he no since then remains mildly tachypneic but not really in respiratory distress in terms of accessory muscles or diaphragmatic effort knees he has a shallow breather breathes rapidly compensated O2 but has a weak cough and some of this might be nutritional some of this 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 but he has been worked on pretty vigorously throughout the day in terms of chest physiotherapy by the respiratory people and that is been helpful but he unequivocally the no has bilateral and atelectasis and small lung volumes he is cooperative he he coughs but not with a lot of strength and he remains also on bronchodilator therapy along with Mucomyst Critical Care Time (minutes): 35 Physical Exam Vital Signs: Vital Signs: Last Vital Signs Temp 98.4 F 05/03/23 16:00 Pulse 98 05/03/23 16:10 Resp 26 H 05/03/23 16:10 BP 109/52 L 05/03/23 16:00 Pulse Ox 98 05/03/23 16:10 O2 Del Method Room Air 05/03/23 16:00 O2 Flow Rate 1 05/03/23 11:00 FiO2 30 05/02/23 12:00 BMI result Body Mass Index 29.3 He has adequate cognitive function awake alert Up in the chair he has been off for more than 24 hours all pressors with per blood pressures rate of 106/55 and a mean of 69 in sinus rhythm at a rate of 94 and an oxygen saturation of 97% on nasal cannula Lungs with diminished bilateral and some scattered mild rales at both bases Cardiac function with normal LV systolic function by bedside echo Abdomen is benign soft no organomegaly good bowel sounds Objective Data Labs 05/03/23 06:51 05/03/23 06:51 Labs: Laboratory Results - last 24 hr 05/02/23 05/02/23 05/02/23 17:57 18:00 20:08 WBC RBC Hgb Hct MCV MCH MCHC RDW Plt Count MPV Immature Gran % (Auto) Neut % (Auto) Lymph % (Auto) [place] % (Auto) Eos % (Auto) Baso % (Auto) Lymph # (Auto) [place] # (Auto) Eos # (Auto) Baso # (Auto) Abs Immat Gran (auto) Absolute Neuts (auto) Absolute Nucleated RBC Nucleated RBC % (auto) VBG pH VBG pCO2 VBG pO2 VBG HCO3 VBG O2 Saturation VBG Base Excess Sodium Potassium Chloride Carbon Dioxide Anion Gap BUN Creatinine Estim Creat Clear Calc Estimated GFR POC Glucose 111 97 Random Glucose Calcium Phosphorus Magnesium Total Bilirubin AST ALT Alkaline Phosphatase Total Protein Albumin Random Vancomycin 19.1 05/02/23 05/02/23 05/03/23 20:21 23:34 05:25 WBC RBC Hgb Hct MCV MCH MCHC RDW Plt Count MPV Immature Gran % (Auto) Neut % (Auto) Lymph % (Auto) [place] % (Auto) Eos % (Auto) Baso % (Auto) Lymph # (Auto) [place] # (Auto) Eos # (Auto) Baso # (Auto) Abs Immat Gran (auto) Absolute Neuts (auto) Absolute Nucleated RBC Nucleated RBC % (auto) VBG pH VBG pCO2 VBG pO2 VBG HCO3 VBG O2 Saturation VBG Base Excess Sodium Potassium Chloride Carbon Dioxide Anion Gap BUN Creatinine Estim Creat Clear Calc Estimated GFR POC Glucose 90 90 69 Random Glucose Calcium Phosphorus Magnesium Total Bilirubin AST ALT Alkaline Phosphatase Total Protein Albumin Random Vancomycin 05/03/23 05/03/23 05/03/23 06:51 06:51 06:51 WBC 8.0 RBC 2.85 L Hgb 8.5 L Hct 26.4 L MCV 92.6 MCH 29.8 MCHC 32.2 RDW 14.8 Plt Count 131 L MPV 9.8 Immature Gran % (Auto) 1.1 H Neut % (Auto) 72.8 Lymph % (Auto) 17.5 L [place] % (Auto) 7.2 Eos % (Auto) 1.2 Baso % (Auto) 0.2 Lymph # (Auto) 1.4 [place] # (Auto) 0.6 Eos # (Auto) 0.1 Baso # (Auto) 0.0 Abs Immat Gran (auto) 0.09 H Absolute Neuts (auto) 5.8 Absolute Nucleated RBC 0.000 Nucleated RBC % (auto) 0.0 VBG pH VBG pCO2 VBG pO2 VBG HCO3 VBG O2 Saturation VBG Base Excess Sodium 143 Potassium 4.1 Chloride 110 H Carbon Dioxide 21 L Anion Gap 16 BUN 14 Creatinine 1.17 1.16 Estim Creat Clear Calc 61.0 61.6 Estimated GFR 60 > 60 POC Glucose Random Glucose 62 Calcium 8.8 Phosphorus 1.9 L Magnesium 1.7 Total Bilirubin 1.1 H AST 15 ALT 11 Alkaline Phosphatase 125 H Total Protein 6.1 L Albumin 3.2 L Random Vancomycin 05/03/23 05/03/23 05/03/23 06:51 06:52 07:24 WBC RBC Hgb Hct MCV MCH MCHC RDW Plt Count MPV Immature Gran % (Auto) Neut % (Auto) Lymph % (Auto) [place] % (Auto) Eos % (Auto) Baso % (Auto) Lymph # (Auto) [place] # (Auto) Eos # (Auto) Baso # (Auto) Abs Immat Gran (auto) Absolute Neuts (auto) Absolute Nucleated RBC Nucleated RBC % (auto) VBG pH 7.43 VBG pCO2 36 VBG pO2 71 VBG HCO3 24 VBG O2 Saturation 93.0 VBG Base Excess 0.1 Sodium Potassium Chloride Carbon Dioxide Anion Gap BUN Creatinine Estim Creat Clear Calc Estimated GFR POC Glucose 64 60 Random Glucose Calcium Phosphorus Magnesium Total Bilirubin AST ALT Alkaline Phosphatase Total Protein Albumin Random Vancomycin 05/03/23 05/03/23 05/03/23 08:31 10:10 11:28 WBC RBC Hgb Hct MCV MCH MCHC RDW Plt Count MPV Immature Gran % (Auto) Neut % (Auto) Lymph % (Auto) [place] % (Auto) Eos % (Auto) Baso % (Auto) Lymph # (Auto) [place] # (Auto) Eos # (Auto) Baso # (Auto) Abs Immat Gran (auto) Absolute Neuts (auto) Absolute Nucleated RBC Nucleated RBC % (auto) VBG pH VBG pCO2 VBG pO2 VBG HCO3 VBG O2 Saturation VBG Base Excess Sodium Potassium Chloride Carbon Dioxide Anion Gap BUN Creatinine Estim Creat Clear Calc Estimated GFR POC Glucose 76 170 H 105 Random Glucose Calcium Phosphorus Magnesium Total Bilirubin AST ALT Alkaline Phosphatase Total Protein Albumin Random Vancomycin Microbiology Microbiology Results: Microbiology 04/28/23 01:33 Blood - Venous Blood Culture - Final No growth after 5 days. 04/28/23 00:23 Blood - Venous Blood Culture - Final No growth after 5 days. 04/28/23 Unknown Urine Catheterized - Villanueva Catheter Urine Culture - Final Escherichia coli Enterococcus faecalis 04/28/23 04:20 Sputum - Suctioned Gram Stain - Final 04/28/23 04:20 Sputum - Suctioned Sputum Culture - Final Progress Note: A&P Assessment and plan (1) Hypoventilation: Status: Acute (2) Urinary tract infection due to Enterococcus: Status: Acute (3) Hypophosphatemia: Status: Acute (4) Hypokalemia due to excessive gastrointestinal loss of potassium: Status: Acute (5) Hypomagnesemia: Status: Acute (6) Seizure disorder: Status: Acute (7) Type 2 diabetes mellitus: Status: Acute (8) Acute renal failure (ARF): Status: Acute (9) Aspiration pneumonitis due to regurgitated gastric secretions: Status: Acute (10) Acute respiratory failure: Status: Acute (11) Metabolic encephalopathy: Status: Acute (12) Hypokalemia: Status: Acute Plan All told very slowly coming along he he has got significant dysphagia so swallow recommended thickening and puree Ng his food he only eats at by the the tsp because he still is a little discoordinated and this still is an element of some lethargy but I think as he gets his strength back hopefully he will be able to cough with more effectiveness until then the chest physiotherapy is very delvin at least during his waking day he needs to have 3 to 4 times a day with positioning cupping and coughing use of some of their oscillating the no machinery to try to adeno to create a more effective cough and clearing and then continued of course albuterol treatments Until he is eating with more reliability will just keep but at least a modest rate of Ringer's lactate replace him electrolytic Elaina as needed and he does have reversal of his acute kidney insufficiency and seems to have plateaued with a creatinine of 1.17 Quality Stroke Does the patient have a stroke diagnosis?: No VTE Prior VTE?: No VTE Risk Level:: Medical - moderate - high VTE Device Contraindication: N/A - Device Ordered VTE Drug Contraindication: N/A - Med Ordered
[2023-05-03 16:53] LABS: Glucose, Whole Blood 98 mg/dL (60-115)
[2023-05-03 21:23] LABS: Glucose, Whole Blood 135 mg/dL (60-115)
[2023-05-03 23:55] LABS: Glucose, Whole Blood 119 mg/dL (60-115)
[2023-05-04] VITALS (31 sets, daily range): BP systolic 98–118; BP diastolic 47–66; PULSE 88–103; RESP 18–42; TEMP 37–37.4; O2SAT 92–100
[2023-05-04] MEDS: Ampicillin Sodium/Sulbactam Na 3 GM in 0.9 % Sodium Chloride 100 ML IV ×4 (00:17→18:58)
[2023-05-04] MEDS: levETIRAcetam 750 MG in 0.9 % Sodium Chloride 100 ML 430 MG IV ×2 (00:18→12:00)
[2023-05-04] MEDS: Enoxaparin Sodium 40 MG/0.4 ML SYRINGE SUBCUT (02:56)
[2023-05-04 04:15] LABS: VBG Base Excess 1.6 mmol/L; VBG HCO3 24 mmol/L (22-26); VBG pCO2 30 mmHg; VBG pO2 88 mmHg
[2023-05-04 04:42] LABS: MANUAL DIFF FLAG NO
[2023-05-04 04:56] LABS: Basophils Percent Auto 0.3 % (0-2); Eosinophils Absolute Auto 0.1 X10*3/uL (0.0-0.4); Hematocrit 24.4 % (42.0-52.0); Hemoglobin 7.9 g/dl (14.0-18.0); Imm Gran Abs Auto 0.05 X10*3/uL (0.00-0.03); Imm Gran Pct Auto 0.8 % (0.0-0.4); Lymphocytes Absolute Auto 1.1 X10*3/uL (1.2-4.9); Lymphocytes Percent Auto 18.6 % (20-40); Mean Corpuscular HGB Conc 32.4 g/dl (31.0-36.0); Mean Corpuscular Volume 92.8 fL (80.0-98.0); Mean Platelet Volume 9.9 fL (9.4-12.4); Monocytes Absolute Auto 0.5 X10*3/uL (0.1-1.2); Monocytes Percent Auto 8.7 % (2-11); Neutrophils Absolute Auto 4.2 x10*3/uL (2.0-8.3); Neutrophils Percent Auto 69.6 % (45-73); Platelet Count 144 X10*3/uL (160-400); Red Blood Count 2.63 X10*6/uL (4.60-5.80); Red Cell Distribution Width 14.8 % (11.0-16.0)
[2023-05-04 05:03] LABS: Estimated Glomerular Filt Rate 60
[2023-05-04 05:06] LABS: Alanine Aminotransferase 9 U/L (0-40); Albumin Level 3.4 g/dL (3.5-5.0); Alkaline Phosphatase 103 U/L (39-117); Anion Gap 14 (12-20); Aspartate Amino Transferase 13 U/L (5-37); Bilirubin Total 0.7 mg/dL (0.0-1.0); Blood Urea Nitrogen 14 mg/dL (9-16); Carbon Dioxide 22 mmol/L (22-29); Chloride 112 mmol/L (96-108); Estimated Glomerular Filt Rate 59; Glucose Random 105 mg/dL (60-115); Magnesium 1.8 mg/dL (1.6-2.6); Phosphorus 1.7 mg/dL (2.7-4.5); Potassium 3.4 mmol/L (3.3-5.1); Sodium 145 mmol/L (135-145); Total Protein 6.1 g/dL (6.5-8.0)
[2023-05-04 05:14] LABS: Venous Blood Gas Refer to POC result
[2023-05-04] MEDS: Acetylcysteine 10 % 400 MG/4 ML VIAL INHALE ×4 (07:16→20:13)
[2023-05-04] MEDS: Albuterol/Iprat 2.5/0.5MG 3 ML AMPUL.NEB INHALE ×4 (07:16→20:13)
[2023-05-04 07:32] LABS: Glucose, Whole Blood 96 mg/dL (60-115)
[2023-05-04 11:16] LABS: Glucose, Whole Blood 93 mg/dL (60-115)
--- NOTE | 2023-05-04 13:29 | PM.CCPN ---
Subjective Subjective Date of Service: 05/04/23 Interval History: In this 82-year-old still remained stable status post urosepsis with altered mental status following which witnessed aspiration and currently the Enterococcus and E coli that are growing are susceptible to ampicillin so we remain on Unasyn and he stays afebrile he is still to it it tachypneic to a mild degree but without accessory muscle in other words no distress even on room air saturations are 94-97% sinus rhythm pressure is 115/63 with a mean of 74 and this is off pressors for hours and is up in a chair but because of dysphagia his food is modified and he only eats by tsp so were maintaining Ringer's lactate IV Critical Care Time (minutes): 35 Physical Exam Vital Signs: Vital Signs: Last Vital Signs Temp 98.8 F 05/04/23 13:00 Pulse 94 05/04/23 13:00 Resp 34 H 05/04/23 13:00 BP 106/55 L 05/04/23 13:00 Pulse Ox 95 05/04/23 13:00 O2 Del Method Nasal Cannula 05/04/23 13:00 O2 Flow Rate 1 05/04/23 13:00 FiO2 30 05/02/23 12:00 BMI result Body Mass Index 0.0 So he is awake oriented good cognitive function Chest with scattered bibasilar rales no other adventitious sounds Bedside echo with preserved LV and RV function Abdomen benign and no organomegaly nontender his only issue is dysphagia Objective Data Labs 05/04/23 03:54 05/04/23 03:54 Labs: Laboratory Results - last 24 hr 05/03/23 05/03/23 05/03/23 16:49 21:18 23:45 WBC RBC Hgb Hct MCV MCH MCHC RDW Plt Count MPV Immature Gran % (Auto) Neut % (Auto) Lymph % (Auto) [place] % (Auto) Eos % (Auto) Baso % (Auto) Lymph # (Auto) [place] # (Auto) Eos # (Auto) Baso # (Auto) Abs Immat Gran (auto) Absolute Neuts (auto) Absolute Nucleated RBC Nucleated RBC % (auto) VBG pH VBG pCO2 VBG pO2 VBG HCO3 VBG O2 Saturation VBG Base Excess Sodium Potassium Chloride Carbon Dioxide Anion Gap BUN Creatinine Estim Creat Clear Calc Estimated GFR POC Glucose 98 135 H 119 H Random Glucose Calcium Phosphorus Magnesium Total Bilirubin AST ALT Alkaline Phosphatase Total Protein Albumin 05/04/23 05/04/23 05/04/23 03:54 03:54 03:54 WBC 6.0 RBC 2.63 L Hgb 7.9 L Hct 24.4 L MCV 92.8 MCH 30.0 MCHC 32.4 RDW 14.8 Plt Count 144 L MPV 9.9 Immature Gran % (Auto) 0.8 H Neut % (Auto) 69.6 Lymph % (Auto) 18.6 L [place] % (Auto) 8.7 Eos % (Auto) 2.0 Baso % (Auto) 0.3 Lymph # (Auto) 1.1 L [place] # (Auto) 0.5 Eos # (Auto) 0.1 Baso # (Auto) 0.0 Abs Immat Gran (auto) 0.05 H Absolute Neuts (auto) 4.2 Absolute Nucleated RBC 0.000 Nucleated RBC % (auto) 0.0 VBG pH VBG pCO2 VBG pO2 VBG HCO3 VBG O2 Saturation VBG Base Excess Sodium 145 Potassium 3.4 Chloride 112 H Carbon Dioxide 22 Anion Gap 14 BUN 14 Creatinine 1.19 1.17 Estim Creat Clear Calc 60.0 61.0 Estimated GFR 59 60 POC Glucose Random Glucose 105 Calcium 9.0 Phosphorus 1.7 L Magnesium 1.8 Total Bilirubin 0.7 AST 13 ALT 9 Alkaline Phosphatase 103 Total Protein 6.1 L Albumin 3.4 L 05/04/23 05/04/23 05/04/23 04:04 07:29 11:12 WBC RBC Hgb Hct MCV MCH MCHC RDW Plt Count MPV Immature Gran % (Auto) Neut % (Auto) Lymph % (Auto) [place] % (Auto) Eos % (Auto) Baso % (Auto) Lymph # (Auto) [place] # (Auto) Eos # (Auto) Baso # (Auto) Abs Immat Gran (auto) Absolute Neuts (auto) Absolute Nucleated RBC Nucleated RBC % (auto) VBG pH 7.50 H VBG pCO2 30 VBG pO2 88 VBG HCO3 24 VBG O2 Saturation 97.0 VBG Base Excess 1.6 Sodium Potassium Chloride Carbon Dioxide Anion Gap BUN Creatinine Estim Creat Clear Calc Estimated GFR POC Glucose 96 93 Random Glucose Calcium Phosphorus Magnesium Total Bilirubin AST ALT Alkaline Phosphatase Total Protein Albumin Microbiology Microbiology Results: Microbiology 04/28/23 01:33 Blood - Venous Blood Culture - Final No growth after 5 days. 04/28/23 00:23 Blood - Venous Blood Culture - Final No growth after 5 days. 04/28/23 Unknown Urine Catheterized - Villanueva Catheter Urine Culture - Final Escherichia coli Enterococcus faecalis 04/28/23 04:20 Sputum - Suctioned Gram Stain - Final 04/28/23 04:20 Sputum - Suctioned Sputum Culture - Final Progress Note: A&P Assessment and plan (1) Hypoventilation: Status: Acute (2) Urinary tract infection due to Enterococcus: Status: Acute (3) Hypophosphatemia: Status: Acute (4) Hypokalemia due to excessive gastrointestinal loss of potassium: Status: Acute (5) Hypomagnesemia: Status: Acute (6) Seizure disorder: Status: Acute (7) Type 2 diabetes mellitus: Status: Acute (8) Acute renal failure (ARF): Status: Acute (9) Aspiration pneumonitis due to regurgitated gastric secretions: Status: Acute (10) Acute respiratory failure: Status: Acute (11) Metabolic encephalopathy: Status: Acute (12) Hypokalemia: Status: Acute Plan So the plan again is to continue to attempt to feedings slowly and continue IV fluids and I would complete a minimum of a 10 day course of antibiotics all told but most important is frequent respiratory therapy while he has Kei are weak I would at least 4 times a day do vigorous chest physiotherapy and follow his chest x-ray for resolution of his atelectasis Quality Stroke Does the patient have a stroke diagnosis?: No VTE Prior VTE?: No VTE Risk Level:: Medical - moderate - high VTE Device Contraindication: N/A - Device Ordered VTE Drug Contraindication: N/A - Med Ordered
[2023-05-04] MEDS: Potassium Phosphate/NS 15 MMOL/250 ML PLAST..BAG 62.5 MMOL IV (14:00)
[2023-05-04] MEDS: Lactated Ringers 1,000 ML 50 ML IVCONT (15:14)
[2023-05-04 16:02] LABS: Glucose, Whole Blood 141 mg/dL (60-115)
--- NOTE | 2023-05-04 20:54 | PC.NURSE ---
Assumed care at 12:00. Patient drowsy, disoriented, only oriented to person and place. Forgetful, limited assessment secondary to limited ability to communicate, mumbled words in short phrases. SHAVER, follows commands, attends and tracks speaker, PERRL. Tachypneic with RR 32-38 often, MD aware. Chest PT and cough assist with effect, audibly loosening sputum and dry intermittent weak cough is noticeably moister and moving sputum after treatment. Patient also getting mucomyst treatments. Patient continues on 1 LPM with SpO2 91-96%. Shallow respirations. LS diminished at bases. BP WNL, afebrile, continues on Unasyn. Sinus rhythm to sinus tachycardia in low 100's on monitoring and evaluation advisor. Edema to BLE 1+ and trace edema to BUE. Femoral catheter discontinued as per MD to right Fem, new 20 G PRN IV placed to right wrist. Patient with poor appetite, is 1:1 feed, has been refusing dinner, but had a late lunch, did well with lunch and poorly with breakfast per report. No BM today, patient without documented BM, his son josé luis patient had diarrhea leading up to admission, so likely last BM 04/29. Patient with kelly catheter average 35 cc/hour robert urine.
[2023-05-04 21:34] LABS: Glucose, Whole Blood 172 mg/dL (60-115)
[2023-05-04] MEDS: Insulin Lispro 100 UNIT/ML 3 ML VIAL SUBCUT (21:36)
[2023-05-04] MEDS: bisacodyL 10 MG SUPP.RECT PR (22:19)
[2023-05-05] VITALS (24 sets, daily range): BP systolic 112–141; BP diastolic 39–71; PULSE 77–99; RESP 20–40; TEMP 36.3–37.4; O2SAT 90–100; BMI 30.2
[2023-05-05] MEDS: levETIRAcetam 750 MG in 0.9 % Sodium Chloride 100 ML 430 MG IV ×2 (01:13→14:14)
[2023-05-05] MEDS: Enoxaparin Sodium 40 MG/0.4 ML SYRINGE SUBCUT (02:34)
[2023-05-05 04:44] LABS: VBG Base Excess 4.1 mmol/L; VBG HCO3 27 mmol/L (22-26); VBG pCO2 36 mmHg; VBG pH 7.49 (7.32-7.43); VBG pO2 80 mmHg
[2023-05-05 04:45] LABS: Venous Blood Gas Refer to POC result
[2023-05-05 05:46] LABS: MANUAL DIFF FLAG NO
[2023-05-05 05:49] LABS: Basophils Percent Auto 0.4 % (0-2); Eosinophils Absolute Auto 0.1 X10*3/uL (0.0-0.4); Eosinophils Percent Auto 1.9 % (0-4); Hematocrit 23.3 % (42.0-52.0); Hemoglobin 7.3 g/dl (14.0-18.0); Imm Gran Abs Auto 0.05 X10*3/uL (0.00-0.03); Imm Gran Pct Auto 0.7 % (0.0-0.4); Lymphocytes Absolute Auto 1.3 X10*3/uL (1.2-4.9); Lymphocytes Percent Auto 18.7 % (20-40); Mean Corpuscular HGB Conc 31.3 g/dl (31.0-36.0); Mean Corpuscular Volume 92.5 fL (80.0-98.0); Mean Platelet Volume 9.6 fL (9.4-12.4); Monocytes Absolute Auto 0.5 X10*3/uL (0.1-1.2); Monocytes Percent Auto 6.6 % (2-11); NRBC Pct Auto 0.3 /100WBC (0.0-0.2); Neutrophils Percent Auto 71.7 % (45-73); Platelet Count 212 X10*3/uL (160-400); Red Blood Count 2.52 X10*6/uL (4.60-5.80); Red Cell Distribution Width 14.7 % (11.0-16.0)
[2023-05-05 06:07] LABS: Alanine Aminotransferase 9 U/L (0-40); Alkaline Phosphatase 90 U/L (39-117); Anion Gap 12 (12-20); Aspartate Amino Transferase 12 U/L (5-37); Bilirubin Total 0.4 mg/dL (0.0-1.0); Blood Urea Nitrogen 16 mg/dL (9-16); Calcium 8.6 mg/dL (8.4-10.2); Carbon Dioxide 23 mmol/L (22-29); Chloride 114 mmol/L (96-108); Creatinine Clr Calc Pharmacy 55.3; Estimated Glomerular Filt Rate 53; Glucose Random 151 mg/dL (60-115); Magnesium 1.7 mg/dL (1.6-2.6); Potassium 3.1 mmol/L (3.3-5.1); Sodium 146 mmol/L (135-145); Total Protein 5.8 g/dL (6.5-8.0)
[2023-05-05] MEDS: Ampicillin Sodium/Sulbactam Na 3 GM in 0.9 % Sodium Chloride 100 ML IV ×5 (06:07→23:35)
[2023-05-05] MEDS: KCl 20 mEq in 0.45% Sod 20 MEQ/1,000 ML IV.SOLN 80 MEQ IVCONT (06:47)
[2023-05-05] MEDS: Potassium Chloride/H20 10 MEQ/100 ML PIGGYBACK 100 MEQ IV ×2 (07:16→09:18)
[2023-05-05 07:31] LABS: Glucose, Whole Blood 137 mg/dL (60-115)
--- NOTE | 2023-05-05 08:00 | P.PNCC_ITS ---
Subjective Subjective Date of Service: 05/05/23 Interval History: 82-year-old who developed a progressive alteration of mental status as a result of urosepsis which grew both Enterococcus and E coli each at 100,000 colonies and currently both susceptible to ampicillin so he is on Unasyn he has been afebrile extubated for now bowel 4 days but he has had dysphagia has to be tsp fed on and on pureed and thickened diet and he is doing increasingly well he always has a degree of of tachypnea because he has a rapid shallow breather he has got diminished lung volumes ever since extubation probably Anatoliy significant bibasilar atelectasis and and gets chest physiotherapy which is the most i mportant part of the remainder of his hospitalization at least 3 or 4 times a day during his waking day and needs to be taught how to use the bedside spirometry for deep breathing exercises but it seems that his cough is becoming a little bit stronger more effective a lot of this was just the weakness of his Rich 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 As a result of his altered mental status in he was witnessed to aspirate over at the [facility] and because of that he was brought over to the hospital for this combined infectious issue and then as the infection resolves so 2 did his encephalopathy and at this point he has been on no particular ICU level care he has been off pressors for 4 days and extubated for Lala well over 4 days holding his own never distressed never using accessory muscles so hopefully with the chest physiotherapy he will the no gradually come around where at least he would qualify enough for short-term rehab Critical Care Time (minutes): 30 Physical Exam Vital Signs: Vital Signs: Last Vital Signs Temp 99.0 F 05/05/23 07:00 Pulse 78 05/05/23 07:00 Resp 35 H 05/05/23 07:00 BP 113/39 L 05/05/23 07:00 Pulse Ox 97 05/05/23 07:00 O2 Del Method Nasal Cannula 05/05/23 07:00 O2 Flow Rate 1 05/05/23 07:00 FiO2 30 05/02/23 12:00 BMI result Body Mass Index 30.2 Pressure 114/43 for a mean of 66 and his room air oxygen saturation is 95% and he sinus rhythm at 81 He had minimal hypernatremia 146 but he was hypokalemic at 3.1 and he has also had a gradual down drift of his hemoglobin but half a g a day current hemoglobin is 7.3 and is a stool occult for blood that is pending Good cognitive function nonfocal neurologically abdomen soft no organomegaly Lungs without adventitious sounds Bedside cardiac exam normal LV and RV function Objective Data Labs 05/05/23 04:34 05/05/23 05:15 Labs: Laboratory Results - last 24 hr 05/04/23 05/04/23 05/04/23 11:12 15:58 21:30 WBC RBC Hgb Hct MCV MCH MCHC RDW Plt Count MPV Immature Gran % (Auto) Neut % (Auto) Lymph % (Auto) [place] % (Auto) Eos % (Auto) Baso % (Auto) Lymph # (Auto) [place] # (Auto) Eos # (Auto) Baso # (Auto) Abs Immat Gran (auto) Absolute Neuts (auto) Absolute Nucleated RBC Nucleated RBC % (auto) VBG pH VBG pCO2 VBG pO2 VBG HCO3 VBG O2 Saturation VBG Base Excess Sodium Potassium Chloride Carbon Dioxide Anion Gap BUN Creatinine Estim Creat Clear Calc Estimated GFR POC Glucose 93 141 H 172 H Random Glucose Calcium Phosphorus Magnesium Total Bilirubin AST ALT Alkaline Phosphatase Total Protein Albumin 05/05/23 05/05/23 05/05/23 04:33 04:34 05:15 WBC 7.0 RBC 2.52 L Hgb 7.3 L Hct 23.3 L MCV 92.5 MCH 29.0 MCHC 31.3 RDW 14.7 Plt Count 212 D MPV 9.6 Immature Gran % (Auto) 0.7 H Neut % (Auto) 71.7 Lymph % (Auto) 18.7 L [place] % (Auto) 6.6 Eos % (Auto) 1.9 Baso % (Auto) 0.4 Lymph # (Auto) 1.3 [place] # (Auto) 0.5 Eos # (Auto) 0.1 Baso # (Auto) 0.0 Abs Immat Gran (auto) 0.05 H Absolute Neuts (auto) 5.0 Absolute Nucleated RBC 0.020 H Nucleated RBC % (auto) 0.3 H VBG pH 7.49 H VBG pCO2 36 VBG pO2 80 VBG HCO3 27 H VBG O2 Saturation 96.0 VBG Base Excess 4.1 Sodium 146 H Potassium 3.1 L Chloride 114 H Carbon Dioxide 23 Anion Gap 12 BUN 16 Creatinine 1.31 Estim Creat Clear Calc 55.3 Estimated GFR 53 POC Glucose Random Glucose 151 H Calcium 8.6 Phosphorus 2.0 L Magnesium 1.7 Total Bilirubin 0.4 AST 12 ALT 9 Alkaline Phosphatase 90 Total Protein 5.8 L Albumin 3.0 L 05/05/23 07:25 WBC RBC Hgb Hct MCV MCH MCHC RDW Plt Count MPV Immature Gran % (Auto) Neut % (Auto) Lymph % (Auto) [place] % (Auto) Eos % (Auto) Baso % (Auto) Lymph # (Auto) [place] # (Auto) Eos # (Auto) Baso # (Auto) Abs Immat Gran (auto) Absolute Neuts (auto) Absolute Nucleated RBC Nucleated RBC % (auto) VBG pH VBG pCO2 VBG pO2 VBG HCO3 VBG O2 Saturation VBG Base Excess Sodium Potassium Chloride Carbon Dioxide Anion Gap BUN Creatinine Estim Creat Clear Calc Estimated GFR POC Glucose 137 H Random Glucose Calcium Phosphorus Magnesium Total Bilirubin AST ALT Alkaline Phosphatase Total Protein Albumin Microbiology Microbiology Results: Microbiology 04/28/23 01:33 Blood - Venous Blood Culture - Final No growth after 5 days. 04/28/23 00:23 Blood - Venous Blood Culture - Final No growth after 5 days. 04/28/23 Unknown Urine Catheterized - Villanueva Catheter Urine Culture - Final Escherichia coli Enterococcus faecalis 04/28/23 04:20 Sputum - Suctioned Gram Stain - Final 04/28/23 04:20 Sputum - Suctioned Sputum Culture - Final Progress Note: A&P Assessment and plan (1) Hypoventilation: Status: Acute (2) Urinary tract infection due to Enterococcus: Status: Acute (3) Hypophosphatemia: Status: Acute (4) Hypokalemia due to excessive gastrointestinal loss of potassium: Status: Acute (5) Hypomagnesemia: Status: Acute (6) Seizure disorder: Status: Acute (7) Type 2 diabetes mellitus: Status: Acute (8) Acute renal failure (ARF): Status: Acute (9) Aspiration pneumonitis due to regurgitated gastric secretions: Status: Acute (10) Acute respiratory failure: Status: Acute (11) Metabolic encephalopathy: Status: Acute (12) Hypokalemia: Status: Acute Plan The plan is to transfer to an intermediate care in case we need to step up the level of his oxygen support- Needs aggressive chest physiotherapy from the respiratory therapist 3 to 4 times a day minimum And to fill in with bedside spirometry for exercise needs careful feeding tsp at a time because of the dysphagia with to swallow people following him Needs to complete the course of his Unasyn therapy And needs case management to begin applying for short-term rehab Quality Stroke Does the patient have a stroke diagnosis?: No VTE Prior VTE?: No VTE Risk Level:: Medical - moderate - high VTE Device Contraindication: N/A - Device Ordered VTE Drug Contraindication: N/A - Med Ordered
[2023-05-05] MEDS: Albuterol/Iprat 2.5/0.5MG 3 ML AMPUL.NEB INHALE ×4 (08:06→21:06)
[2023-05-05 11:34] LABS: Glucose, Whole Blood 124 mg/dL (60-115)
[2023-05-05 15:39] LABS: OBS Int Ctl Valid YES; OBS1 NEGATIVE (NEGATIVE)
[2023-05-05 16:43] LABS: Glucose, Whole Blood 149 mg/dL (60-115)
[2023-05-05 21:42] LABS: Glucose, Whole Blood 138 mg/dL (60-115)
[2023-05-05 21:42] LABS: Glucose, Whole Blood 160 mg/dL (60-115)
[2023-05-06] VITALS (10 sets, daily range): BP systolic 119–143; BP diastolic 55–67; PULSE 74–88; RESP 15–28; TEMP 35.9–36.8; O2SAT 92–98; BMI 30.3
[2023-05-06] MEDS: levETIRAcetam 750 MG in 0.9 % Sodium Chloride 100 ML 430 MG IV ×2 (00:39→14:20)
[2023-05-06] MEDS: Enoxaparin Sodium 40 MG/0.4 ML SYRINGE SUBCUT (01:59)
[2023-05-06] MEDS: Ampicillin Sodium/Sulbactam Na 3 GM in 0.9 % Sodium Chloride 100 ML IV ×3 (05:33→17:54)
--- NOTE | 2023-05-06 05:48 | PC.NURSE ---
Villanueva cath removed per protocol. Patient tolerated well. [place] cath placed. Patient due to void at 11:45AM.
[2023-05-06 07:12] LABS: Hematocrit 26.5 % (42.0-52.0); Hemoglobin 8.4 g/dl (14.0-18.0); Mean Corpuscular HGB Conc 31.7 g/dl (31.0-36.0); Mean Corpuscular Hemoglobin 29.7 pg (27.0-33.0); Mean Corpuscular Volume 93.6 fL (80.0-98.0); NRBC Pct Auto 0.4 /100WBC (0.0-0.2); Platelet Count 298 X10*3/uL (160-400); Red Blood Count 2.83 X10*6/uL (4.60-5.80); Red Cell Distribution Width 15.2 % (11.0-16.0); White Blood Count 8.4 X10*3/uL (4.8-10.8)
[2023-05-06 07:30] LABS: Glucose, Whole Blood 105 mg/dL (60-115)
[2023-05-06 07:31] LABS: Anion Gap 12 (12-20); Blood Urea Nitrogen 13 mg/dL (9-16); Calcium 8.7 mg/dL (8.4-10.2); Carbon Dioxide 24 mmol/L (22-29); Chloride 115 mmol/L (96-108); Creatinine Clr Calc Pharmacy 62.6; Estimated Glomerular Filt Rate > 60; Glucose Random 108 mg/dL (60-115); Potassium 3.1 mmol/L (3.3-5.1); Sodium 148 mmol/L (135-145)
[2023-05-06] MEDS: Albuterol/Iprat 2.5/0.5MG 3 ML AMPUL.NEB INHALE ×3 (08:04→19:32)
[2023-05-06] MEDS: Potassium Chloride/H20 10 MEQ/100 ML PIGGYBACK 100 MEQ IV ×2 (08:55→10:00)
[2023-05-06 10:52] LABS: Glucose, Whole Blood 118 mg/dL (60-115)
--- NOTE | 2023-05-06 11:49 | HO.PM.IMPN ---
Subjective Subjective Date of Service: 05/06/23 Interval History: Seen and evaluated this morning physically deconditioned, reports he is bedbound for a while now swallowing troubles Hypernatremia overnight Review of Systems Review of Systems: Yes all other systems are reviewed and are negative Physical Exam Vital Signs: Vital Signs: Last Vital Signs Temp 97.4 F 05/06/23 11:19 Pulse 77 05/06/23 11:19 Resp 20 05/06/23 11:19 BP 119/58 L 05/06/23 11:19 Pulse Ox 95 05/06/23 11:19 O2 Del Method Room Air 05/06/23 11:19 O2 Flow Rate 1 05/05/23 11:00 FiO2 30 05/02/23 12:00 BMI result Body Mass Index 30.3 Const: Other: Constitutional : Awake, interactive, frail, not in distress Neck : Normal inspection, Supple Cardiovascular : RRR, no JVP, trace lower extremity edema Respiratory : good bilateral air entry, basal fine crackles, wheezes or rhonchi Gastrointestinal: soft, lax, Normal bowel sounds, Non tender Skin : Warm, Dry Neurological : Alert & oriented x2, No focal deficit Objective Data Active Medications Albuterol/Ipratropium (Albuterol/Iprat 2.5/0.5mg 3 Ml Ampul.Neb) 3 ml INHALE RQ4H WHILE AWAKE [facility] Last Admin: 05/06/23 08:04 Dose: 3 ml Documented By: WHIT Enoxaparin Sodium (Enoxaparin Sodium 40 Mg/0.4 Ml Syringe) 40 mg SUBCUT Q24H [facility] Last Admin: 05/06/23 01:59 Dose: 40 mg Documented By: RUDY Ampicillin Sodium/Sulbactam (Sodium 3 gm/ Sodium Chloride) 100 mls @ 200 mls/hr IV Q6H [facility] Last Infusion: 05/06/23 06:10 Dose: 0 mls/hr Documented By: RUDY Levetiracetam 750 mg/ Sodium (Chloride) 107.5 mls @ 430 mls/hr IV Q12H [facility] Last Infusion: 05/06/23 00:58 Dose: 0 mls/hr Documented By: RUDY Dextrose (D5w) 1,000 mls @ 125 mls/hr IVCONT .Q8H [facility] Insulin Human Lispro (Insulin Lispro 100 Unit/Ml 3 Ml Vial) 0 unit SUBCUT QIDACHSarah [facility]; Protocol Last Admin: 05/06/23 07:22 Dose: Not Given Documented By: RUDY Non-Admin Reason: No Insulin Coverage Labs 05/06/23 06:50 05/06/23 06:50 Labs: Laboratory Results - last 24 hr 05/05/23 05/05/23 05/05/23 14:36 16:39 19:58 MCV MCH MCHC RDW Plt Count MPV Absolute Nucleated RBC Nucleated RBC % (auto) Anion Gap Estim Creat Clear Calc Estimated GFR POC Glucose 149 H 160 H Random Glucose Calcium Stool Occult Blood NEGATIVE 05/05/23 05/06/23 05/06/23 21:32 06:50 06:50 MCV 93.6 MCH 29.7 MCHC 31.7 RDW 15.2 Plt Count 298 D MPV 9.0 L Absolute Nucleated RBC 0.030 H Nucleated RBC % (auto) 0.4 H Anion Gap 12 Estim Creat Clear Calc 62.6 Estimated GFR > 60 POC Glucose 138 H Random Glucose 108 Calcium 8.7 Stool Occult Blood 05/06/23 05/06/23 07:05 10:49 MCV MCH MCHC RDW Plt Count MPV Absolute Nucleated RBC Nucleated RBC % (auto) Anion Gap Estim Creat Clear Calc Estimated GFR POC Glucose 105 118 H Random Glucose Calcium Stool Occult Blood Assessment and Plan (1) Aspiration pneumonitis due to regurgitated gastric secretions: Status: Acute (2) Acute respiratory failure: Status: Acute (3) Metabolic encephalopathy: Status: Acute Plan An 82-year-old w PMH of DMII, seizure?, HTN, HLD among others who was admitted to ICU for respiratory failure and septic shock post extubation 05/01, off pressors who grew Enterococcus and E coli in urine. found to have aspiration pneumonia as well. 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 Quality Stroke Does the patient have a stroke diagnosis?: No VTE Prior VTE?: No VTE Risk Level:: Medical - moderate - high VTE Device Contraindication: N/A - Device Ordered VTE Drug Contraindication: N/A - Med Ordered
[2023-05-06] MEDS: Dextrose 5 % 1,000 ML 125 ML IVCONT ×2 (12:24→20:59)
--- NOTE | 2023-05-06 12:57 | MHC.CM.PN ---
EMR REVIEWED, PER HOSPITALIST ANTIC PT WILL BE READY TO RETURN TO [facility] TOMORROW, SNF UPDATED AND CLINICAL SENT, CM WILL CONT TO FOLLOW D/C NEEDS.
--- NOTE | 2023-05-06 14:24 | MHC.SL.SWA ---
Speech Pathologist Impression: Risk of Aspiration Due to: Medically Fragile History of Pneumonia Reduced Cognition Dysphasia Diet Status: Recommend continue on PUREE (NDD1) with HONEY THICK liquids by tsp only, pills crushed in puree (no change), Liquid Consistency and Strategies for Safe Swallow: Liquid Intake Recommendation: Honey Thick Liquid Intake Strategies: Liquids by Teaspoon Only Solid Food Consistency: Dietary Recommendations: Pureed (NDD1) Additional Modifications to Solid Foods: Patient requires one to one feeding. Patient is very slow to feed, takes a prolonged time between bites. Closely monitor that patient has swallowed before presenting additional food or liquid. Alternated liquids and solids. Liquids by teaspoon only. Closely monitor for clinical signs of aspiration: Dip with limited recovery in 02 sats, increased upper respiratory congestion or chalo coughing after swallow. Oral Medication Intake: Crushed with Puree Please contact the pharmacy regarding appropriate crushable or liquid drug formulations that are available whenever modified delivery is recommended. Compensatory Strategies and Precautions to be Taken for Safe Swallow: Sitting Upright (90 deg) No Straw Liquids from Spoon Small Bites and Sips Rate of Ingestion Change Oral Check Avoid Specific Foods Supervision While Eating and Drinking for Safe Swallow: Total Assistance (1:1) Foods to Avoid: Very sticky, congealed purees. Add sauces/gravies. Liquids by teaspoon only. Swallowing Recommended Treatments: Compens. Strategy Educat. Recommendation for Speech: Inpatient Speech Therapy Comment: Patient was seen during lunch today, with patient now on med/telemetry unit, and on room air. Patient was awake and alert, interested in lunch, somewhat more communicative but still evidencing confusion. Patient took bite of pureed meat and potatoes, which was unfortunately too hot with patient reacting to temperature ( muy caliente! ). Patient was offered sip of HT liquid to help cool bolus in mouth, with patient producing a mildly prolonged oral phase, moderate delay initiating swallow, no clinical signs of aspiration. Patient was then given trials of pudding with patient again producing a moderately prolonged oral phase, noteable delay initiating swallow, with no clinical signs of aspiration. Patient was given controlled cup sips of HT liquid with similar pattern of swallow. Patient is currently on appropriate diet given moderate oral pharyngeal dysphagia, continues with aspiration risk due to consistently observed delay initiating swallow. Recommend continue on PUREE (NDD1) with HONEY THICK liquids, pills crushed in puree. Date Range for Service Req: Timeline to reassess: Pediatric Psychologist Clinican/Clinical Fellow: No Supervisory Statement: I have reviewed and agree with the student/clinical fellow's documentation: N/A Speech Language Pathologist: Jenny Arshad M.A., CCC-BLACK TOP PAVER OPERATOR
[2023-05-06 14:42] LABS: Anion Gap 15 (12-20); Blood Urea Nitrogen 13 mg/dL (9-16); Calcium 8.4 mg/dL (8.4-10.2); Carbon Dioxide 23 mmol/L (22-29); Chloride 113 mmol/L (96-108); Creatinine Clr Calc Pharmacy 65.4; Estimated Glomerular Filt Rate > 60; Glucose Random 138 mg/dL (60-115); Potassium 3.5 mmol/L (3.3-5.1); Sodium 147 mmol/L (135-145)
[2023-05-06 16:56] LABS: Glucose, Whole Blood 137 mg/dL (60-115)
[2023-05-06 20:40] LABS: Glucose, Whole Blood 160 mg/dL (60-115)
[2023-05-06] MEDS: Insulin Lispro 100 UNIT/ML 3 ML VIAL SUBCUT (20:59)
[2023-05-07] VITALS (11 sets, daily range): BP systolic 111–141; BP diastolic 44–70; PULSE 67–82; RESP 18–32; TEMP 36.1–36.7; O2SAT 92–100
[2023-05-07] MEDS: Ampicillin Sodium/Sulbactam Na 3 GM in 0.9 % Sodium Chloride 100 ML IV ×2 (01:52→07:39)
[2023-05-07] MEDS: levETIRAcetam 750 MG in 0.9 % Sodium Chloride 100 ML 430 MG IV (02:02)
[2023-05-07] MEDS: Enoxaparin Sodium 40 MG/0.4 ML SYRINGE SUBCUT (02:02)
[2023-05-07] MEDS: Albuterol/Iprat 2.5/0.5MG 3 ML AMPUL.NEB INHALE ×4 (07:30→19:49)
[2023-05-07 07:38] LABS: Glucose, Whole Blood 133 mg/dL (60-115)
[2023-05-07 09:12] LABS: Hematocrit 25.6 % (42.0-52.0); Mean Corpuscular HGB Conc 31.3 g/dl (31.0-36.0); Mean Corpuscular Hemoglobin 29.3 pg (27.0-33.0); Mean Corpuscular Volume 93.8 fL (80.0-98.0); Mean Platelet Volume 8.6 fL (9.4-12.4); NRBC Pct Auto 0.3 /100WBC (0.0-0.2); Platelet Count 339 X10*3/uL (160-400); Red Blood Count 2.73 X10*6/uL (4.60-5.80); Red Cell Distribution Width 15.3 % (11.0-16.0); White Blood Count 9.2 X10*3/uL (4.8-10.8)
[2023-05-07 09:30] LABS: Anion Gap 12 (12-20); Blood Urea Nitrogen 12 mg/dL (9-16); Calcium 7.9 mg/dL (8.4-10.2); Carbon Dioxide 24 mmol/L (22-29); Chloride 109 mmol/L (96-108); Creatinine Clr Calc Pharmacy 73.3; Estimated Glomerular Filt Rate > 60; Glucose Random 130 mg/dL (60-115); Potassium 2.9 mmol/L (3.3-5.1); Sodium 142 mmol/L (135-145)
[2023-05-07] MEDS: Dextrose 5 % 1,000 ML 125 ML IVCONT (10:37)
[2023-05-07] MEDS: Potassium Chloride Packet 20 MEQ PACKET 40 MEQ PO (10:46)
[2023-05-07 11:46] LABS: Glucose, Whole Blood 167 mg/dL (60-115)
--- NOTE | 2023-05-07 12:17 | P.PNIM_ITS ---
Subjective Subjective Date of Service: 05/07/23 Interval History: lethargic Physical Exam Vital Signs: Vital Signs: Last Vital Signs Temp 97.2 F 05/07/23 11:38 Pulse 67 05/07/23 11:38 Resp 20 05/07/23 11:38 BP 132/60 05/07/23 11:38 Pulse Ox 100 05/07/23 11:38 O2 Del Method Room Air 05/07/23 11:38 O2 Flow Rate 1 05/05/23 11:00 FiO2 30 05/02/23 12:00 BMI result Body Mass Index 30.3 Const: Other: Constitutional : Awake, interactive, frail, not in distress Neck : Normal inspection, Supple Cardiovascular : RRR, no JVP, trace lower extremity edema Respiratory : good bilateral air entry, basal fine crackles, wheezes or rhonchi Gastrointestinal: soft, lax, Normal bowel sounds, Non tender Skin : Warm, Dry Neurological : Alert & oriented x2, No focal deficit Objective Data Active Medications Albuterol/Ipratropium (Albuterol/Iprat 2.5/0.5mg 3 Ml Ampul.Neb) 3 ml INHALE RQ4H WHILE AWAKE [facility] Last Admin: 05/07/23 11:21 Dose: 3 ml Documented By: ALBAN Enoxaparin Sodium (Enoxaparin Sodium 40 Mg/0.4 Ml Syringe) 40 mg SUBCUT Q24H [facility] Last Admin: 05/07/23 02:02 Dose: 40 mg Documented By: CARLENE Ampicillin Sodium/Sulbactam (Sodium 3 gm/ Sodium Chloride) 100 mls @ 200 mls/hr IV Q6H [facility] Last Infusion: 05/07/23 08:47 Dose: 0 mls/hr Documented By: RUDY Levetiracetam 750 mg/ Sodium (Chloride) 107.5 mls @ 430 mls/hr IV Q12H [facility] Last Infusion: 05/07/23 08:47 Dose: 0 mls/hr Documented By: RUDY Dextrose (D5w) 1,000 mls @ 125 mls/hr IVCONT .Q8H [facility] Last Admin: 05/07/23 10:39 Dose: Not Given Documented By: RUDY Non-Admin Reason: IV still infusing Insulin Human Lispro (Insulin Lispro 100 Unit/Ml 3 Ml Vial) 0 unit SUBCUT QIDACHS [facility]; Protocol Last Admin: 05/07/23 07:42 Dose: Not Given Documented By: RUDY Non-Admin Reason: No Insulin Coverage Labs 05/07/23 08:35 05/07/23 08:35 Labs: Laboratory Results - last 24 hr 05/06/23 05/06/23 05/06/23 14:14 16:53 20:37 MCV MCH MCHC RDW Plt Count MPV Absolute Nucleated RBC Nucleated RBC % (auto) Anion Gap 15 Estim Creat Clear Calc 65.4 Estimated GFR > 60 POC Glucose 137 H 160 H Random Glucose 138 H Calcium 8.4 05/07/23 05/07/23 05/07/23 07:34 08:35 08:35 MCV 93.8 MCH 29.3 MCHC 31.3 RDW 15.3 Plt Count 339 MPV 8.6 L Absolute Nucleated RBC 0.030 H Nucleated RBC % (auto) 0.3 H Anion Gap 12 Estim Creat Clear Calc 73.3 Estimated GFR > 60 POC Glucose 133 H Random Glucose 130 H Calcium 7.9 L 05/07/23 11:42 MCV MCH MCHC RDW Plt Count MPV Absolute Nucleated RBC Nucleated RBC % (auto) Anion Gap Estim Creat Clear Calc Estimated GFR POC Glucose 167 H Random Glucose Calcium Assessment and Plan (1) Aspiration pneumonitis due to regurgitated gastric secretions: Status: Acute (2) Acute respiratory failure: Status: Acute (3) Metabolic encephalopathy: Status: Acute Plan 82-year-old w PMH of DMII, seizure?, HTN, HLD among others who was admitted to ICU for respiratory failure and septic shock post extubation 05/01, off pressors who grew Enterococcus and E coli in urine. found to have aspiration pneumonia as well. 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 for epilepsy vs mood dvt prophylaxis - lovenox full code reason for continued hospitalization:eating <25% Time Spent With Patient Time: Total time managing care of this patient today ____ minutes. Quality Stroke Does the patient have a stroke diagnosis?: No VTE Prior VTE?: No VTE Risk Level:: Medical - moderate - high VTE Device Contraindication: N/A - Device Ordered VTE Drug Contraindication: N/A - Med Ordered
[2023-05-07] MEDS: Amoxicillin 500 MG CAPSULE PO ×2 (13:45→19:58)
[2023-05-07 16:22] LABS: Glucose, Whole Blood 145 mg/dL (60-115)
[2023-05-07 19:56] LABS: Glucose, Whole Blood 140 mg/dL (60-115)
[2023-05-07] MEDS: levETIRAcetam 250 MG TABLET 1250 MG PO (19:58)
[2023-05-07] MEDS: Atorvastatin Calcium 80 MG TABLET PO (19:58)
[2023-05-08] MEDS: Enoxaparin Sodium 40 MG/0.4 ML SYRINGE SUBCUT (00:54)
[2023-05-08 03:06] VITALS: BP 126/67; PULSE 78; RESP 34; TEMP 36.1; O2SAT 94
[2023-05-08 06:00] VITALS: BMI 30.9
[2023-05-08] MEDS: Amoxicillin 500 MG CAPSULE PO ×2 (06:04→13:01)
[2023-05-08 07:16] LABS: Glucose, Whole Blood 111 mg/dL (60-115)
[2023-05-08] MEDS: allopurinoL 100 MG TABLET 200 MG PO (07:35)
[2023-05-08] MEDS: levETIRAcetam 250 MG TABLET 1250 MG PO (07:35)
[2023-05-08] MEDS: Albuterol/Iprat 2.5/0.5MG 3 ML AMPUL.NEB INHALE (07:43)
[2023-05-08 07:46] VITALS: PULSE 77; RESP 16; O2SAT 95
[2023-05-08 07:52] VITALS: BP 138/62; PULSE 76; RESP 20; TEMP 36.4; O2SAT 100
[2023-05-08 08:42] LABS: Anion Gap 14 (12-20); Blood Urea Nitrogen 11 mg/dL (9-16); Carbon Dioxide 21 mmol/L (22-29); Chloride 111 mmol/L (96-108); Creatinine Clr Calc Pharmacy 78.7; Estimated Glomerular Filt Rate > 60; Glucose Fasting 105 mg/dL (60-99); Magnesium 1.5 mg/dL (1.6-2.6); Potassium 3.6 mmol/L (3.3-5.1); Sodium 142 mmol/L (135-145)
--- NOTE | 2023-05-08 08:47 | P.PNIM_ITS ---
Subjective Subjective Date of Service: 05/08/23 Interval History: more alert, reporting hunger Physical Exam Vital Signs: Vital Signs: Last Vital Signs Temp 97.6 F 05/08/23 07:52 Pulse 76 05/08/23 07:52 Resp 20 05/08/23 07:52 BP 138/62 05/08/23 07:52 Pulse Ox 100 05/08/23 07:52 O2 Del Method Nasal Cannula 05/08/23 07:52 O2 Flow Rate 3 05/08/23 07:52 FiO2 30 05/02/23 12:00 BMI result Body Mass Index 30.9 Const: Other: Constitutional : Awake, interactive, frail, not in distress Neck : Normal inspection, Supple Cardiovascular : RRR, no JVP, trace lower extremity edema Respiratory : good bilateral air entry, basal fine crackles, wheezes or rhonchi Gastrointestinal: soft, lax, Normal bowel sounds, Non tender Skin : Warm, Dry Neurological : Alert & oriented x2, No focal deficit Objective Data Active Medications Allopurinol (Allopurinol 100 Mg Tablet) 200 mg PO DAILY [facility] Last Admin: 05/08/23 07:35 Dose: 200 mg Documented By: RUDY Amoxicillin (Amoxicillin 500 Mg Capsule) 500 mg PO Q8H [facility] Last Admin: 05/08/23 06:04 Dose: 500 mg Documented By: JACQUIE Atorvastatin Calcium (Atorvastatin Calcium 80 Mg Tablet) 80 mg PO BEDTIME [facility] Last Admin: 05/07/23 19:58 Dose: 80 mg Documented By: RONNIE-VANI Enoxaparin Sodium (Enoxaparin Sodium 40 Mg/0.4 Ml Syringe) 40 mg SUBCUT Q24H [facility] Last Admin: 05/08/23 00:54 Dose: 40 mg Documented By: JACQUIE Insulin Human Lispro (Insulin Lispro 100 Unit/Ml 3 Ml Vial) 0 unit SUBCUT QIDACHS [facility]; Protocol Last Admin: 05/08/23 07:16 Dose: Not Given Documented By: RUDY Non-Admin Reason: No Insulin Coverage Levetiracetam (Levetiracetam 250 Mg Tablet) 1,250 mg PO BID [facility] Last Admin: 05/08/23 07:35 Dose: 1,250 mg Documented By: RUDY Labs 05/07/23 08:35 05/08/23 07:32 Labs: Laboratory Results - last 24 hr 05/07/23 05/07/23 05/07/23 08:35 08:35 11:42 MCV 93.8 MCH 29.3 MCHC 31.3 RDW 15.3 Plt Count 339 MPV 8.6 L Absolute Nucleated RBC 0.030 H Nucleated RBC % (auto) 0.3 H Anion Gap 12 Estim Creat Clear Calc 73.3 Estimated GFR > 60 POC Glucose 167 H Random Glucose 130 H Fasting Glucose Calcium 7.9 L Magnesium 05/07/23 05/07/23 05/08/23 16:19 19:52 07:13 MCV MCH MCHC RDW Plt Count MPV Absolute Nucleated RBC Nucleated RBC % (auto) Anion Gap Estim Creat Clear Calc Estimated GFR POC Glucose 145 H 140 H 111 Random Glucose Fasting Glucose Calcium Magnesium 05/08/23 07:32 MCV MCH MCHC RDW Plt Count MPV Absolute Nucleated RBC Nucleated RBC % (auto) Anion Gap 14 Estim Creat Clear Calc 78.7 Estimated GFR > 60 POC Glucose Random Glucose Fasting Glucose 105 H Calcium 8.0 L Magnesium 1.5 L Assessment and Plan (1) Aspiration pneumonitis due to regurgitated gastric secretions: Status: Acute (2) Acute respiratory failure: Status: Acute (3) Metabolic encephalopathy: Status: Acute Plan 82-year-old w PMH of DMII, seizure?, HTN, HLD among others who was admitted to ICU for respiratory failure and septic shock post extubation 05/01, off pressors who grew Enterococcus and E coli in urine. found to have aspiration pneumonia as well. septic shock and acute Hypoxic respiratory failure 2/2 Aspiration pneumonia and UTI changed to amoxil Spirometry wean o2 UTI grew both Enterococcus and E coli both susceptible to ampicillin amoxil dysphagia AREA SECRETARY following, NDD1 solids, honey thick liquids Acute hypernatremia 2/2 decrease PO intake improved to 142 with d5w dced d5w has maintained sodium 142 encourage PO intake of water DMII SSI on keppra ? for epilepsy vs mood dvt prophylaxis - lovenox full code reason for continued hospitalization:monitor for adequate nutrition and fluid intake Time Spent With Patient Time: Total time managing care of this patient today ____ minutes. Quality Stroke Does the patient have a stroke diagnosis?: No VTE Prior VTE?: No VTE Risk Level:: Medical - moderate - high VTE Device Contraindication: N/A - Device Ordered VTE Drug Contraindication: N/A - Med Ordered
--- NOTE | 2023-05-08 10:26 | MHC.CM.PN ---
PER HOSPITALIST VAL PT MAY BE MEDICALLY CLEARED FOR D/C BACK TO [facility] LATER THIS AFTERNOON, CM ATTEMPTED TO CONTACT HCP RANDI RANGEL AT 10:20AM [phone], NO ANSWER AND DETAILED MESSAGE LEFT W/CM CONTACT NUMBER, [id number] FOR BLS TRANSPORT.
[2023-05-08 10:56] LABS: Glucose, Whole Blood 149 mg/dL (60-115)
[2023-05-08 11:17] VITALS: BP 119/58; PULSE 75; RESP 20; TEMP 36.2; O2SAT 95
--- NOTE | 2023-05-08 13:28 | PM.DS ---
DS: Providers Provider Date of Service: 05/08/23 Date of admission: 04/28/23 02:15 Primary care physician: BERONICA WERNER Consults: 05/01/23 06:36 Consult to Pulmonology Routine Consulting Provider: Jose David Santos Reason for consultation: I knowmwhat I'm doing Has provider been notified: Yes DS: Diagnosis Discharge Diagnosis (1) Aspiration pneumonitis due to regurgitated gastric secretions: Status: Acute (2) Acute respiratory failure: Status: Acute (3) Metabolic encephalopathy: Status: Acute DS: Summary Hospital Course Hospital Course: from initial hpi: 82-year-old male who presents from [facility] via EMS, had been found sitting up on a chair vomiting for approximately 30 minutes prior to coming to the emergency room. Is reported patient had not been feeling well throughout the day, the patient was then found unresponsive by EMS with point of care 139, unable to get oxygen saturation, the patient had been transported to the ER on 100% non-rebreather mask, upon arrival in the ER the patient was noted to be unresponsive and tachypneic. The patient was intubated airway safety and oxygenation. His workup was significant for metabolic acidosis and hypoxia with the ABG showing pH of 7.22, pCO2 34, PO2 76, HC03 14, his blood work otherwise revealed no white count but does have a left shift with 38 bands, sodium of 147, potassium 2.5, carbon dioxide 12 and lactic acid of 6.3. Patient received 30 mL/kilos of IV fluids, was given Zosyn, potassium replacement was started, he received a couple amps of bicarb. In addition his head CT questions the possibility of NPH, CT abdomen pelvis CTs show bilateral ground-glass opacities with nodular and patchy changes in the lower lungs, possibly related to bronchiolitis or associated pneumonitis. hospital course: Patient was admitted for septic shock and acute hypoxic respiratory failure secondary to aspiration pneumonia and urinary tract infection. He received broad-spectrum antibiotics, pressors, intubation. Urine culture grew Enterococcus and E coli was transitioned to Unasyn. Was extubated and weaned off pressors, on room air at time of discharge. Will be discharged on 5 more days of amoxicillin. Noted to have dysphagia, was seen by CELLULAR PLASTICS CUTTER who recommended pureed solids and honey thick liquids. Course was complicated by acute metabolic encephalopathy due to acute hypernatremia from decreased p.o. intake. This was corrected with D5W. D5W was then held and patient demonstrated ability to intake enough p.o. to maintain sodium levels. P.o. fluid should continue to be encouraged. For diabetes was continue insulin. Patient is now back to baseline will be discharged to long-term facility. Time Spent with Patient Time attestation: Total time managing care of this patient today ____ minutes. Discharge coordination time: Greater than 30 minutes Quality: Safe Use of Opioids Does Pt have an Active Cancer Diagnosis on the Problem List?: No Quality: Stroke Does the patient have a stroke diagnosis?: No Physical Exam Vital Signs: Vital Signs: Last Vital Signs Temp 97.2 F 05/08/23 11:17 Pulse 75 05/08/23 11:17 Resp 20 05/08/23 11:17 BP 119/58 L 05/08/23 11:17 Pulse Ox 95 05/08/23 11:17 O2 Del Method Room Air 05/08/23 11:17 O2 Flow Rate 3 05/08/23 07:52 FiO2 30 05/02/23 12:00 BMI result Body Mass Index 30.9 Const: Other: Constitutional : Awake, interactive, frail, not in distress Neck : Normal inspection, Supple Cardiovascular : RRR, no JVP, trace lower extremity edema Respiratory : good bilateral air entry, basal fine crackles, wheezes or rhonchi Gastrointestinal: soft, lax, Normal bowel sounds, Non tender Skin : Warm, Dry Neurological : Alert & oriented x2, No focal deficit DS: Data Data Completed and Pending Labs on day of discharge: Laboratory Results - last 24 hr 05/07/23 05/07/23 05/08/23 16:19 19:52 07:13 Sodium Potassium Chloride Carbon Dioxide Anion Gap BUN Creatinine Estim Creat Clear Calc Estimated GFR POC Glucose 145 H 140 H 111 Fasting Glucose Calcium Magnesium 05/08/23 05/08/23 07:32 10:49 Sodium 142 Potassium 3.6 D Chloride 111 H Carbon Dioxide 21 L Anion Gap 14 BUN 11 Creatinine 0.93 Estim Creat Clear Calc 78.7 Estimated GFR > 60 POC Glucose 149 H Fasting Glucose 105 H Calcium 8.0 L Magnesium 1.5 L Discharge Plan Discharge Anticipated Discharge Date/Time: 05/08/23 13:25 Patient Disposition: er SNF Discharge Diagnosis: pneumonia Referrals: [facility] [Outside] - 1 Day (RESUMPTION OF LTC) BERONICA WERNER [Primary Care Provider] - 1 Week Discharge Medications: New amoxicillin 500 mg Capsule 500 mg PO Q8H Qty: 0 0RF Continued allopurinol 100 mg Tablet 200 mg PO DAILY Levemir U-100 Insulin 100 unit/mL Solution 8 unit SUBCUT DAILY@0730 Levemir U-100 Insulin 100 unit/mL Solution 16 unit SUBCUT DAILY@1700 atorvastatin 80 mg Tablet 80 mg PO BEDTIME magnesium hydroxide [Milk of Magnesia] 400 mg/5 mL Suspension 5 ml PO DAILY PRN (Reason: Constipation) Rx Instructions: GIVE IF NO BM IN 3 DAYS levetiracetam 250 mg Tablet 1,250 mg PO BID bisacodyl 10 mg Suppository 10 mg VA DAILY PRN (Reason: Constipation) Rx Instructions: GIVE IF MILK OF MAGNESIA IS INEFFECTIVE acetaminophen 325 mg Tablet 650 mg PO Q6H PRN (Reason: Fever Or Pain) Fleet Enema 19-7 gram/118 mL Enema 118 ml VA DAILY PRN (Reason: Constipation) Rx Instructions: USE IF BISACODYL SUPPOSITORY INEFFECTIVE ondansetron 4 mg Tablet,Disintegrating 4 mg PO Q6H PRN (Reason: Nausea And Vomiting) sennosides-docusate sodium [Senna Plus] 8.6-50 mg Tablet 2 tab-cap PO BID PRN (Reason: Constipation) Discontinued lisinopril 10 mg Tablet 10 mg PO DAILY Discharge Orders: Discharge Order (Routine); Ordered 05/08/23 Ordered By: Garett Dyson Diet: NDD1, honey thick liquid Activity on Discharge: As tolerated Stand Alone Forms: Patient Portal Discharge page Care Plan Goals: avoid aspiratoin Health Concerns: aspiration, uti Plan of Treatment: 5 more days amoxil, modified diet as above, encourage po intake Assessment: see above
--- NOTE | 2023-05-08 14:03 | MHC.SLORD ---
Speech Language Pathology Order Status: MEDICAL ADMINISTRATIVE SPECIALIST attempted to see pt for dysphagia tx this morning. Pt was sleeping, awoke momentarily to sternal rub, but quickly falling back asleep. No PO trials given d/t pt's drowsy state. Pt is on a pureed diet (NDD1) with honey thick liquids.
[2023-05-08 15:21] VITALS: BP 125/59; PULSE 74; RESP 18; TEMP 35.9; O2SAT 94
== END 2023-05-08 17:14 | disposition skilled nursing facility (03) | DRG 720 ==
LOC: HO.ED 01:22 → HO.ICU 02:26 → HO.EDOVER 05-05 08:07 → HO.ICU 05-05 12:54 → HO.IMC 05-05 14:14
PROVIDERS: Internal Medicine Cardiovascular Disease; Internal Medicine Pulmonary Disease; Nurse Practitioner Family; Student in an Organized Health Care Education/Training Program; Admitting Provider Physician Assistant Medical; Emergency Provider Student in an Organized Health Care Education/Training Program; PCP Emergency Medicine; Visit Provider Internal Medicine
DX: A41.9 Sepsis, unspecified organism (principal); J96.01 Acute respiratory failure with hypoxia; N17.0 Acute kidney failure with tubular necrosis; J69.0 Pneumonitis due to inhalation of food and vomit; R65.21 Severe sepsis with septic shock; N39.0 Urinary tract infection, site not specified; E11.22 Type 2 diabetes mellitus with diabetic chronic kidney disease; B96.20 Unspecified Escherichia coli [E. coli] as the cause of diseases classified elsewhere; E87.20 Acidosis, unspecified; G40.909 Epilepsy, unspecified, not intractable, without status epilepticus; J98.11 Atelectasis; E83.42 Hypomagnesemia; R13.10 Dysphagia, unspecified; B95.2 Enterococcus as the cause of diseases classified elsewhere; E83.39 Other disorders of phosphorus metabolism; N18.9 Chronic kidney disease, unspecified; E87.1 Hypo-osmolality and hyponatremia; E87.6 Hypokalemia; G91.2 (Idiopathic) normal pressure hydrocephalus; R68.0 Hypothermia, not associated with low environmental temperature; Z74.01 Bed confinement status; Z79.4 Long term (current) use of insulin; Z79.899 Other long term (current) drug therapy
CPT/HCPCS: 36415; 70450; 71045; 71250; 74176; 74177; 80048; 80053; 80202; 81001; 82272; 82565; 82803; 82947; 83605; 83615; 83735; 84100; 84484; 85007; 85025; 85027; 85610; 85730; 86140; 86880; 87040; 87070; 87086; 87088; 87186; 87205; 92526; 92610; 93005; 94002; 94003; 94640; 94799; 99285; C1758; J0295; J0613; J0696; J1650; J1953; J2543; J3370; J3371; J3475; P9047; Q9967

== ENCOUNTER → 2023-04-28 02:15 | Outpatient (BNV) | payer MEDICAID, SELFPAY | PROVIDERS: Admitting Provider Physician Assistant Medical; Emergency Provider Student in an Organized Health Care Education/Training Program; Visit Provider Student in an Organized Health Care Education/Training Program | DX: J69.0 Pneumonitis due to inhalation of food and vomit (principal); J96.00 Acute respiratory failure, unspecified whether with hypoxia or hypercapnia; G93.41 Metabolic encephalopathy | CPT/HCPCS: 99232; 99233; 99239 ==

== ENCOUNTER → 2023-04-28 02:15 | Outpatient (BNV) | payer MEDICAID, SELFPAY | PROVIDERS: Admitting Provider Physician Assistant Medical; Emergency Provider Student in an Organized Health Care Education/Training Program; Visit Provider Physician Assistant Medical | DX: R06.89 Other abnormalities of breathing (principal); N39.0 Urinary tract infection, site not specified; B95.2 Enterococcus as the cause of diseases classified elsewhere; E83.39 Other disorders of phosphorus metabolism; E87.6 Hypokalemia; E83.42 Hypomagnesemia; G40.909 Epilepsy, unspecified, not intractable, without status epilepticus; E11.9 Type 2 diabetes mellitus without complications; N17.9 Acute kidney failure, unspecified; J69.0 Pneumonitis due to inhalation of food and vomit; J96.00 Acute respiratory failure, unspecified whether with hypoxia or hypercapnia; G93.41 Metabolic encephalopathy | CPT/HCPCS: 99232; 99291; 99292 ==

== ENCOUNTER 2023-08-29 13:23 | Emergency (ER) | payer MEDICAID, SELFPAY ==
--- NOTE | 2023-08-29 | ECG_ITS ---
Test Reason : AMS Blood Pressure : / mmHG Vent. Rate : 056 BPM Atrial Rate : 000 BPM P-R Int : 000 ms QRS Dur : 122 ms QT Int : 470 ms P-R-T Axes : 000 -29 100 degrees QTc Int : 453 ms Poor data quality Sinus bradycardia Left axis deviation Non-specific intra-ventricular conduction delay Nonspecific T wave abnormality Abnormal ECG When compared with ECG of 28-APR-2023 00:17, Heart rate has decreased Vent. rate has decreased BY 56 BPM Referred By: Generic ED Physician Electronically Signed By:SERENITY PRASAD MD
--- NOTE | ~2023-08-29 | CT_ITS ---
EXAMINATION: CT head/brain wo IV con CLINICAL INFORMATION: Reason for Exam lethargy, asymmetrical pupils COMPARISON: CT head without contrast 04/28/2023 TECHNIQUE: Contiguous axial imaging was performed from the skull base to vertex without intravenous contrast. Sagittal and coronal reformatted images were obtained. This CT examination was performed using dose optimization techniques as appropriate, variously including the following: * Automated exposure control * Adjustment of mA and/or kV according to patient size (this includes techniques or standardized protocols for targeted exams where dose is matched to indication/reason for exam; i.e. extremities or head) Use of iterative reconstruction technique DLP: 783.6 mGy-cm FINDINGS: No acute osseous or soft tissue abnormality. 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 The mastoid air cells and visualized portions of the paranasal sinuses are well aerated. There is no evidence of acute intracranial hemorrhage or territorial infarction. No abnormal mass effect or midline shift is seen. Hamm to white matter differentiation is well preserved. No extra-axial fluid collections are identified. Stable enlargement of the lateral and third ventricles which appears disproportionate to the degree of cerebral volume loss is suspicious for underlying normal pressure hydrocephalus. Patchy periventricular and deep white matter hypoattenuation is consistent with mild small vessel ischemic changes. Mild chronic gliosis in the right superior frontal lobe. Small chronic right inferior parietal lobe infarct. CT/CT head/brain wo IV con IMPRESSION: 1. No acute intracranial abnormality including hemorrhage, mass effect, hydrocephalus, or acute territorial edematous infarction. 2. Stable enlargement of the lateral and third ventricles which appears disproportionate to the degree of cerebral volume loss and is suspicious for underlying normal pressure hydrocephalus.
[2023-08-29 13:54] VITALS: BP 108/66; BP 109/60; PULSE 56; PULSE 70; RESP 12; O2SAT 100; O2SAT 96; BMI 25.7
[2023-08-29 14:14] LABS: MANUAL DIFF FLAG NO
[2023-08-29 14:21] LABS: INTERNATIONAL NORM RATIO 0.9 (0.9-1.1); Prothrombin Time 10.9 SEC (11.1-13.3)
[2023-08-29 14:22] LABS: Basophils Percent Auto 0.2 % (0-2); Eosinophils Percent Auto 0.6 % (0-4); Hematocrit 32.2 % (42.0-52.0); Hemoglobin 10.1 g/dl (14.0-18.0); Imm Gran Abs Auto 0.01 X10*3/uL (0.00-0.03); Imm Gran Pct Auto 0.2 % (0.0-0.4); Lymphocytes Absolute Auto 2.7 X10*3/uL (1.2-4.9); Lymphocytes Percent Auto 42.7 % (20-40); Mean Corpuscular HGB Conc 31.4 g/dl (31.0-36.0); Mean Corpuscular Hemoglobin 30.2 pg (27.0-33.0); Mean Corpuscular Volume 96.4 fL (80.0-98.0); Mean Platelet Volume 9.6 fL (9.4-12.4); Monocytes Absolute Auto 0.4 X10*3/uL (0.1-1.2); Monocytes Percent Auto 6.4 % (2-11); Neutrophils Absolute Auto 3.1 x10*3/uL (2.0-8.3); Neutrophils Percent Auto 49.9 % (45-73); Platelet Count 175 X10*3/uL (160-400); Red Blood Count 3.34 X10*6/uL (4.60-5.80); Red Cell Distribution Width 19.8 % (11.0-16.0); White Blood Count 6.3 X10*3/uL (4.8-10.8)
[2023-08-29 14:37] LABS: Valproate 38.1 mcg/mL (50.0-100.0)
[2023-08-29 14:39] LABS: Alanine Aminotransferase 21 U/L (0-40); Albumin Level 3.2 g/dL (3.5-5.0); Alkaline Phosphatase 174 U/L (39-117); Anion Gap 12 (12-20); Aspartate Amino Transferase 27 U/L (5-37); Bilirubin Direct 0.3 mg/dL (0.0-0.5); Bilirubin Total 0.8 mg/dL (0.0-1.0); Blood Urea Nitrogen 25 mg/dL (9-16); Calcium 9.5 mg/dL (8.4-10.2); Carbon Dioxide 30 mmol/L (22-29); Chloride 107 mmol/L (96-108); Creatinine Clr Calc Pharmacy 76.9; Estimated Glomerular Filt Rate > 60; Glucose Random 98 mg/dL (60-115); Potassium 4.7 mmol/L (3.3-5.1); Sodium 144 mmol/L (135-145); Total Protein 7.8 g/dL (6.5-8.0)
[2023-08-29 14:47] LABS: Troponin-I High Sensitivity 3.2 ng/L (<3.5-35.0)
--- NOTE | 2023-08-29 15:34 | ED_ITS ---
HPI - General Adult General Chief complaint: Altered Mental Status Stated complaint: LETHARGY Time Seen by Provider: 08/29/23 14:20 Source: patient and EMS Mode of arrival: EMS History of Present Illness HPI narrative: 82-year-old male who arrives via EMS after he was brought in for concerns of lethargy and confusion and nursing has noted that patient's pupils are unequal. I spoke with the patient and he states that he is otherwise feeling okay and endorses that he has a history of CVA as well as seizure disorder. Patient appears to be oriented. Related Data Home Medications Medication Instructions Recorded Confirmed acetaminophen 325 mg tablet 650 mg PO Q6H PRN Fever Or Pain 04/28/23 04/28/23 allopurinol 100 mg tablet 200 mg PO DAILY 04/28/23 04/28/23 atorvastatin 80 mg tablet 80 mg PO BEDTIME 04/28/23 04/28/23 bisacodyl 10 mg rectal suppository 10 mg DC DAILY PRN Constipation 04/28/23 04/28/23 insulin detemir U-100 100 unit/mL 8 unit subcut DAILY@0730 04/28/23 04/28/23 subcutaneous solution (Levemir U-100 Insulin) insulin detemir U-100 100 unit/mL 16 unit subcut DAILY@1700 04/28/23 04/28/23 subcutaneous solution (Levemir U-100 Insulin) levetiracetam 250 mg tablet 1,250 mg PO BID 04/28/23 04/28/23 magnesium hydroxide 400 mg/5 mL 5 ml PO DAILY PRN Constipation 04/28/23 04/28/23 oral suspension (Milk of Magnesia) ondansetron 4 mg disintegrating 4 mg PO Q6H PRN Nausea And Vomiting 04/28/23 04/28/23 tablet sennosides 8.6 mg-docusate sodium 2 tab-cap PO BID PRN Constipation 04/28/23 04/28/23 50 mg tablet (Senna Plus) sodium phosphates 19 gram-7 118 ml DC DAILY PRN Constipation 04/28/23 04/28/23 gram/118 mL enema (Fleet Enema) Previous Rx's Medication Instructions Recorded amoxicillin 500 mg capsule 500 mg PO Q8H #0 caps 05/08/23 cefdinir 300 mg capsule 300 mg PO BID 7 days #14 caps 08/29/23 Allergies Allergy/AdvReac Type Severity Reaction Status Date / Time No Known Allergies Allergy Verified 08/29/23 13:58 Review of Systems 2 Review of Systems: Pertinent positives and negatives as stated in HPI [facility] Past Medical History Source: nursing notes reviewed Medical History Chronic kidney disease (CKD) Diabetes Social History Social History Housing: Senior [facility] Unable to assess alcohol history related to: Unknown Patient Tobacco Use Status: Tobacco use Unknown Advance Directives: Yes Advance Directives on File: Yes Advance Directives Date on File: 05/01/23 service: No Physical Exam ED Vital Signs: Vital Signs - 24 hr 08/29/23 13:54 Pulse Rate 70 Respiratory Rate 12 Blood Pressure 109/60 Pulse Oximetry 100 Oxygen Delivery Method Nasal Cannula BMI result Body Mass Index 25.7 VITAL SIGNS: Reviewed. GENERAL: Well developed, chronically ill, in no acute distress. HEAD: Normocephalic/atraumatic EYES: PERRLA, EOMI, pupils are asymmetric EARS: Ext canals without abnormality NOSE: Nares patent bilateral OROPHARYNX: no oral lesions noted, posterior pharynx clear NECK: Supple, no adenopathy LUNGS: Normal breath sounds. No adventitious sounds or accessory muscle use. SpO2<100> CARDIOVASCULAR: Regular rate and rhythm without noted murmurs ABDOMEN: Soft, non-tender, non-distended with bowel sounds. MUSCULOSKELETAL: No tenderness, deformities, or effusions noted on gross inspection. EXTREMITIES: No cyanosis, clubbing or edema. SKIN: Inspection of the skin reveals no rashes NEUROLOGIC: Alert and oriented x 3. Strength and sensation to light touch were grossly intact x 4. Medical Decision Making Medical Decision Making MDM Narrative: 82-year-old male with history and clinical presentation, DDX: Infection, seizure, although patient has asymmetrical pupils he is oriented and I do not appreciate any gross focal deficits. 1648: I reviewed all investigations and hematologic indices are negative for leukocytosis or left shift, there is no thrombocytopenia and there appears to be a chronic normocytic anemia. Coagulation studies within normal limits. Chemistry and assays do not demonstrate an JUANY and there is no electrolyte or liver enzyme abnormality. Alkaline phosphatase appears to be intermittently elevated. Urinalysis is significant for urinary tract infection and patient will be treated with antibiotics, there are no findings of SIRS. Patient also noted to be subtherapeutic with Depakote. Keppra levels are pending, but suspect patient may have experienced seizure-like activity secondary to the urinary tract infection. SIgned out to STELLA Whitt f/[facility] CT if negative may d/c Differential Diagnosis Differential Diagnoses: The differential diagnosis associated with the presentation includes Please see the discussion above Admission/Observation Consideration of admission/observation: Escalation of care including admission/observation considered Please see the discussion above Lab Data MDM Lab Attestation statement: I reviewed the patient's lab results. Please see the discussion above 08/29/23 14:07 08/29/23 14:07 Labs: Lab Results 08/29/23 08/29/23 Range/Units 14:07 16:48 WBC 6.3 (4.8-10.8) X10*3/uL RBC 3.34 L D (4.60-5.80) X10*6/uL Hgb 10.1 L D (14.0-18.0) g/dl Hct 32.2 L D (42.0-52.0) % MCV 96.4 (80.0-98.0) fL MCH 30.2 (27.0-33.0) pg MCHC 31.4 (31.0-36.0) g/dl RDW 19.8 H (11.0-16.0) % Plt Count 175 D (160-400) X10*3/uL MPV 9.6 (9.4-12.4) fL Immature Gran % (Auto) 0.2 (0.0-0.4) % Neut % (Auto) 49.9 (45-73) % Lymph % (Auto) 42.7 H (20-40) % Patrick % (Auto) 6.4 (2-11) % Eos % (Auto) 0.6 (0-4) % Baso % (Auto) 0.2 (0-2) % Lymph # (Auto) 2.7 (1.2-4.9) X10*3/uL Patrick # (Auto) 0.4 (0.1-1.2) X10*3/uL Eos # (Auto) 0.0 (0.0-0.4) X10*3/uL Baso # (Auto) 0.0 (0.0-0.2) X10*3/uL Abs Immat Gran (auto) 0.01 (0.00-0.03) X10*3/uL Absolute Neuts (auto) 3.1 (2.0-8.3) x10*3/uL Absolute Nucleated RBC 0.000 (0.0-0.012) X10*3/uL Nucleated RBC % (auto) 0.0 (0.0-0.2) /100WBC PT 10.9 L (11.1-13.3) SEC INR 0.9 (0.9-1.1) Sodium 144 (135-145) mmol/L Potassium 4.7 D (3.3-5.1) mmol/L Chloride 107 (96-108) mmol/L Carbon Dioxide 30 H (22-29) mmol/L Anion Gap 12 (12-20) BUN 25 H (9-16) mg/dL Creatinine 0.84 (0.5-1.4) mg/dL Estim Creat Clear Calc 76.9 Estimated GFR > 60 Random Glucose 98 (60-115) mg/dL Calcium 9.5 D (8.4-10.2) mg/dL Magnesium 1.9 (1.6-2.6) mg/dL Total Bilirubin 0.8 (0.0-1.0) mg/dL Direct Bilirubin 0.3 (0.0-0.5) mg/dL AST 27 (5-37) U/L ALT 21 (0-40) U/L Alkaline Phosphatase 174 H (39-117) U/L Troponin I High Sens 3.2 (<3.5-35.0) ng/L Total Protein 7.8 (6.5-8.0) g/dL Albumin 3.2 L (3.5-5.0) g/dL Urine Color Yellow Urine Appearance Cloudy Urine pH 7.5 (5.0-9.0) Ur Specific [place] 1.025 (1.005-1.025) Urine Protein 30 (1+) H (Neg-Trace) mg/dL Urine Glucose (UA) Negative (Negative) mg/dL Urine Ketones Negative (Negative) mg/dL Urine Blood Moderate (2+) H (Negative) Urine Nitrite Positive H (Negative) Ur Leukocyte Esterase Moderate (2+) H (Negative) Urine RBC >20 H (0-2) /HPF Urine WBC >50 H (0-5) /HPF Ur Squamous Epith Cells 0-2 (0-2) /HPF Urine Bacteria 4+ (None Seen) Hyaline Casts 0-2 (0-2) /LPF Valproic Acid 38.1 L (50.0-100.0) mcg/mL Independent Interpretation I performed an independent interpretation of an: EKG Interpretation: Normal sinus rhythm, HR-56, although difficult to discern P waves R-R his regular, QT-470, QTC -453. External Record Review External record reviewed: Outpatient record and Prior outpatient labs Chronic Conditions Patient?s care impacted by: Diabetes and Other CKD Critical Care Time Critical Care Time Critical Care Time: Yes Total Critical Care Time: 45 Attestation: I personally attest to this time spent taking care of the patient. Discharge Plan Discharge Clinical Impression: Lethargic, Acute UTI, Pupil asymmetry Patient Disposition: Still a Patient Instructions: Urinary Tract Infection in Men (DC), Urinary Tract Infection in Older Adults (ED) Additional Instructions: 1. Resume all home medications as prescribed. 2. Complete the course of antibiotics as prescribed. 3. Supervising physician will need to follow-up on anti seizure medications and levels of those medications that were ordered here during this emergency room visit for modifications as necessary. Return to the ER for any worsening symptoms. Prescriptions: New cefdinir 300 mg capsule 300 mg PO BID 7 Days Qty: 14 0RF No Action allopurinol 100 mg Tablet 200 mg PO DAILY Levemir U-100 Insulin 100 unit/mL Solution 8 unit SUBCUT DAILY@0730 Levemir U-100 Insulin 100 unit/mL Solution 16 unit SUBCUT DAILY@1700 atorvastatin 80 mg Tablet 80 mg PO BEDTIME magnesium hydroxide [Milk of Magnesia] 400 mg/5 mL Suspension 5 ml PO DAILY PRN (Reason: Constipation) Rx Instructions: GIVE IF NO BM IN 3 DAYS levetiracetam 250 mg Tablet 1,250 mg PO BID bisacodyl 10 mg Suppository 10 mg DC DAILY PRN (Reason: Constipation) Rx Instructions: GIVE IF MILK OF MAGNESIA IS INEFFECTIVE acetaminophen 325 mg Tablet 650 mg PO Q6H PRN (Reason: Fever Or Pain) Fleet Enema 19-7 gram/118 mL Enema 118 ml DC DAILY PRN (Reason: Constipation) Rx Instructions: USE IF BISACODYL SUPPOSITORY INEFFECTIVE ondansetron 4 mg Tablet,Disintegrating 4 mg PO Q6H PRN (Reason: Nausea And Vomiting) sennosides-docusate sodium [Senna Plus] 8.6-50 mg Tablet 2 tab-cap PO BID PRN (Reason: Constipation) amoxicillin 500 mg Capsule 500 mg PO Q8H Qty: 0 0RF Referrals: BERONICA WERNER [Primary Care Provider] -
[2023-08-29 15:50] LABS: Magnesium 1.9 mg/dL (1.6-2.6)
[2023-08-29 17:01] LABS: Appearance Urine Cloudy; Color Urine Yellow; Glucose Urine UA Negative (Negative); Leukocyte Esterase Urine Moderate (2+) (Negative); Nitrite Urine Positive (Negative); PH 7.5 (5.0-9.0); Specific Gravity - Urine 1.025 (1.005-1.025); UMIC TRIGGER UACC YES; Urine Blood Moderate (2+) (Negative); Urine Ketones Negative (Negative); Urine Protein 30 (1+) mg/dL (Neg-Trace)
[2023-08-29 17:06] LABS: Bacteria Urine 4+ (None Seen); Hyaline Casts Urine 0-2 /LPF (0-2); RBC Urine >20 /HPF (0-2); Squamous Epithelial Cell Urine 0-2 /HPF (0-2); UACC Culture Trigger YES; WBC Urine >50 /HPF (0-5)
[2023-08-29] MEDS: cefTRIAXone sodium 2 GM in 0.9 % Sodium Chloride 50 ML IV (17:57)
[2023-08-29 19:16] VITALS: BP 102/53; PULSE 61; RESP 14; O2SAT 97
--- NOTE | 2023-08-29 19:27 | PC.NURSE ---
call [facility] floor for updates
--- NOTE | 2023-08-29 19:28 | PC.NURSE ---
assumed care of pt
[2023-08-29 20:45] VITALS: BP 111/53; PULSE 63; RESP 14; TEMP 34.8; O2SAT 97
--- NOTE | 2023-08-29 20:49 | PC.NURSE ---
report given to donovan simon to MARY
[2023-09-02 12:19] LABS: Levetiracetam Keppra 48.2 mcg/mL (6.0-46.0)
== END 2023-08-29 21:33 | disposition home or self-care (01) ==
PROVIDERS: Emergency Provider Student in an Organized Health Care Education/Training Program; PCP Emergency Medicine
DX: R53.83 Other fatigue (principal); N39.0 Urinary tract infection, site not specified; H21.563 Pupillary abnormality, bilateral; E11.9 Type 2 diabetes mellitus without complications
CPT/HCPCS: 36415; 70450; 80048; 80076; 80164; 80177; 81001; 81003; 83605; 83735; 84484; 85025; 85610; 87040; 87086; 87088; 87186; 93005; 96365; 96366; 99284; 99285; J0696